=== PATIENT | female | born 1960 | race Caucasian/White ===

== ENCOUNTER 2017-07-24 08:36 | Inpatient (IN) ==
[2017-07-24] MEDS ORDERED: cefOXitin 2,000 MG in Water for inj. (sterile) 20 ML 20 ML IVP ONE (08:59)
[2017-07-24] MEDS ORDERED: Ringers Solution, Lactated 1,000 ML IVC SCH (09:00)
[2017-07-24] MEDS ORDERED: Albuterol 2.5 MG/3 ML NEBULIZER IH ONE ×2 (09:00→11:23)
--- NOTE | 2017-07-24 09:02 | Anesthesia Evaluation PreOp ---
Date of Encounter: 07/24/17 Time of Encounter: 09:00 - Past History Planned Operation: Robotic Sigmoid Colon Resection Cardiac History: Other (MVP) Pulmonary History: Smoker, Pack/yr (1 ppd x 50 Years), COPD WARP HAND History: Denies Any Significant HX Other Medical History: Renal (Stones), GERD (Hiatal Hernia) Anesthesia History: No Prior Anesthetic Complications, Past Anesthesia (Left foot Reattached, Reconstructive Ovarian Sx, R. wrist cyst) : No Alcohol Use: none, occasionally Drug use: none Medications and Allergies Ibuprofen [Advil] 400 mg PO BID PRN 07/24/17 [History] Lactobacillus Acidophilus [Acidophilus] 1 each PO 1200 07/24/17 [History] Naproxen [Naprosyn] 250 mg PO BID PRN 07/24/17 [History] Psyllium [Metamucil Fiber Singles Packet] 1 packet PO 1200 07/24/17 [History] 3 Allergy/AdvReac Type Severity Reaction Status Date / Time doxycycline [From Vibramycin] Allergy Gastrointestinal Verified 07/24/17 09:23 Upset shellfish derived Allergy Vomiting Verified 07/24/17 09:23 - Meds/Allergy Pre-op Review Medications Reviewed: Yes Allergies Reviewed: Yes Beta Blockers on Current Med List: No Anesthesia Results - Labs Laboratory Tests 04/16/17 07/17/17 07/17/17 11:10 10:28 10:28 WBC 9.8 Hgb 14.7 Hct 45.3 H Plt Count 355 Sodium 143 Potassium 3.9 Chloride 105 Carbon Dioxide 26 BUN 9 Creatinine 0.58 L - Imaging EKG: report reviewed (SR R. Ventricular conduction delay, Poss old Ant. MO) Anesthesia Exam O2 Sat Height 1.7 m Height 1.7 m Weight 60.328 kg Weight 60.328 kg O2 Sat by Pulse Oximetry 98 Vital Signs Temp Pulse Resp BP Pulse Ox 97.9 F 78 18 140/79 98 07/24/17 09:07 07/24/17 09:07 07/24/17 09:07 07/24/17 09:07 07/24/17 09:07 NPO (# of Hours): > 8 hrs Pain Scale: 0 Pain Scale Used: Numeric (1 - 10) - HEENT Pupil (Motor): Pupils equal, EOMI Mallampati: I Teeth: Normal Oral Opening: Greater than 3 - WARP HAND LOC: Oriented WARP HAND Motor: Normal RUE, Normal LUE, Normal RLE, Normal LLE, Normal Face WARP HAND Sensory: Normal: RUE, LUE, RLE, LLE, Face - Cardiac Rhythm: Regular Murmur: None JVD: No Carotid Bruit: No - Pulmonary Breath Sounds: bilateral Clear Respiratory Effort: Symmetrical Anesthesia Assess/Plan ASA Score: 3 Modified Naima Scale for Level of Consciousness: Cooperative, oriented, and tranquil Anesthetic Plan: General Autologous Blood: Yes Monitoring Plan: Standard Monitors Recovery Plan: PACU
--- NOTE | 2017-07-24 09:31 | History & Physical Report ---
Date of Encounter: 07/24/17 Time of Encounter: 09:30 24 Hour HP Update - Instructions Instructions: If the History and Physical is less than 30 days old and was completed prior to A.M. admission and or procedure and has NOT been updated on calendar day of procedure please complete this update prior to performing procedure. - Update Patient reports changes in Medical Condition: No Changes in examination, assessment, or condition: No Changes in Medication: No Preop tests/diagnostics Reviewed: Yes Surgery Remains Indicated: Yes Consent for Planned Operative Procedure(s) Verified: Yes - Pre-Operative Checklist Preoperative Checklist Indicated: Yes Prophylactic Antibiotic Ordered: Yes Home Medications Include Beta Roberth: No
[2017-07-24] MEDS ORDERED: *HR* Propofol 200 MG/20 ML VIAL IVP ONE (10:00)
[2017-07-24] MEDS ORDERED: *HR* FentaNYL (PF) 100 MCG/2 ML VIAL ONE ×3 (10:01→12:02)
[2017-07-24] MEDS ORDERED: Ondansetron 4 MG/2 ML VIAL ONE (10:01)
[2017-07-24] MEDS ORDERED: *HR* Midazolam HCl 2 MG/2 ML VIAL ONE (10:01)
[2017-07-24] MEDS ORDERED: *HR* Rocuronium Bromide 50 MG/5 ML VIAL ONE ×2 (10:01→12:34)
[2017-07-24] MEDS ORDERED: Lidocaine -MPF 2% 2 ML VIAL ONE (10:01)
[2017-07-24] MEDS ORDERED: Dexamethasone 4 MG/ML VIAL ONE (10:01)
[2017-07-24] MEDS ORDERED: *HR* PHENYLEPHRINE 1,000 MCG/10 ML SYRINGE IVP ONE (10:55)
[2017-07-24] MEDS ORDERED: EPHEDrine 50 MG/ML VIAL ONE (10:56)
[2017-07-24] MEDS ORDERED: MORPHINE SUL Oral CONC 10 MG/0.5 ML ORAL.SYG SL PRN (11:23)
[2017-07-24] MEDS ORDERED: *HR* OxyCODONE Immed Rel 5 MG TABLET PO PRN (11:23)
[2017-07-24] MEDS ORDERED: Dexamethasone 4 MG/ML VIAL IVP ONE (11:23)
[2017-07-24] MEDS ORDERED: *HR* HYDROmorphone 2 MG TABLET PO PRN (11:23)
[2017-07-24] MEDS ORDERED: *HR* Promethazine 25 MG/ML VIAL IVP PRN (11:23)
[2017-07-24] MEDS ORDERED: *HR* Labetalol 100 MG/20 ML MDV ONE (11:35)
[2017-07-24] MEDS ORDERED: Neostigmine Methylsulfate 3 MG/3 ML SYRINGE ONE (12:40)
[2017-07-24] MEDS ORDERED: Naloxone 0.4 MG/ML INJ IVP PRN (12:58)
[2017-07-24] MEDS ORDERED: Ondansetron 4 MG/2 ML VIAL IVP PRN (12:58)
[2017-07-24] MEDS ORDERED: OXYCODONE Oral CONC 10 MG/0.5 ML ORAL.SYG SL PRN (12:58)
--- NOTE | 2017-07-24 12:58 | Operative Note ---
Date of procedure: 07/24/17 Pre-op diagnosis: Sigmoid diverticulitis Post-op diagnosis: same Procedure: Robotic Sigmoid resection with 33 mm EEA stapling Anesthesia: ALBINO Surgeon: Kali Haile Was there an licensed physical therapy assistant present: Yes Unemployment Benefits Claims Taker: Aisha Rg Estimated blood loss (cc): 5 Specimen: Sigmoid Colon Condition: stable Disposition: same day Procedure in Detail: After informed consent, patient taken operating room placed supine position. After adequate sedation anesthesia patient was placed in a lithotomy position. After proper timeout a 12 mm cannula site was placed right superior to the umbilicus. Pneumoperitoneum was greater. A 13 mm cannula was placed in right lower quadrant. 5 mm camera was placed in the right upper quadrant. An 8 mm cannula was placed in subxiphoid region followed by another 8 mm in the left lower quadrant. Patient was placed in a headdown position. The robot was docked over the patient's left hip. Small bowel swept out of the pelvis. Rectosigmoid colon was then grasped and retracted cephalad. The peritoneum was then scored level of the sacral promontory. The left ureter was identified and kept on harm's way. The inferior mesenteric artery was then taken with a vessel sealer. The lateral rectosigmoid stalks were taken down the vessel sealer. The dissection was carried out down to approximate 4 cm above the pelvic floor. Rectosigmoid colon was dissected free from the retro-pubic tubercle region. Once it was freed a 45 mm robotic Endo staplers fired across the rectum. Once it was retracted and area was demarcated on the sigmoid colon for transection. Indocyanine green was infused and we had excellent perfusion. The splenic flexure was also taken down and mobilized. This mobilization allowed for less tension on the anastomosis. A counterincision was made in the suprapubic region. Dissection carried down the anterior rectus sheath. The rectus muscles were then divided in the midline with Cristina clamp. Once they were split the rectosigmoid colon was delivered. Alexandra bowel clamps are used to place across the colon proximal and distal and transected. Allis clamps are placed on the bowel and then a pursestring suture device placed on the colon. 3-0 Prolene suture was passed. A pursestring sutures and created and a 33 mm EEA anvil was placed. Suture was tied and secured. Colon was then placed back in the pelvis. The stapler was passed through the anal canal and to the rectal stump and then the spear was placed through the staple line. The anvil was then connected secured and fired. There were 2 excellent donuts. There were several 2-0 silk sutures used to buttress the staple line. A leak test revealed no leak. At that point the procedure was terminated. All incisions are closed with 0 Vicryl suture and 4-0 Vicryl suture. Marcaine was inserted in the Pfannenstiel incision. He tolerated the procedure well.
--- NOTE | 2017-07-24 13:39 | Anesthesia Evaluation Post Op ---
Date of Encounter: 07/24/17 Time of Encounter: 13:38 - Vital Signs Vital Signs: Last Vital Signs Temp 97.0 F L 07/24/17 13:29 Pulse 84 07/24/17 13:29 Resp 16 07/24/17 13:29 BP 143/85 07/24/17 13:29 Pulse Ox 99 07/24/17 13:29 - Lungs Lungs: Clear Ascult./Percussion - Airway Airway: Non-obstructed - Cardiovascular Regular Rate - Mental Status Mental Status: Alert & Oriented, Answers Appropriately - Pain Pain Scale: 3 - Nausea Vomiting Nausea Vomiting: Not Present - Hydration Hydration: NPO, Conner catheter - Discharge PostOp Status: Transfer Patient to floor
[2017-07-24] MEDS: 0.9 % Sodium Chloride 1,000 ML IVC SCH (15:21)
--- NOTE | 2017-07-24 16:47 | Electrocardiograph Report ---
[place] [employer] [facility] Test Date: 2017-07-24 Pat Name: Claire Plummer Department: 106 Room: 3B32 Gender: F Pulmonary Specialist: MITCH : 1960 Requested By: Moo Nguyen Order Number: [id number] Reading MD: Rai Urbina Measurements Intervals [place] Rate: 69 P: 67 WI: 170 QRS: 9 QRSD: 80 T: 52 QT: 391 QTc: 410 Interpretive Statements SINUS RHYTHM Electronically Signed On 07-24-2017 16:45:34 EDT by Rai Urbina
[2017-07-24] MEDS: Nicotine 14 MG PATCH.TD24 TD SCH (17:13)
[2017-07-25] MEDS: 0.9 % Sodium Chloride 1,000 ML IVC SCH (02:39)
[2017-07-25 06:21] LABS: Basophils % 0.2 %; Hematocrit 40.8 % (35.3-44.9); Hemoglobin 13.3 g/dL (11.5-15.4); Immature Granulocytes % 0.4 % (0-4); Lymphocytes # 1.2 K/mcL (0.6-4.6); Lymphocytes % 9.6 %; Mean Corpuscular HGB Conc 32.6 g/dL (31.6-35.5); Mean Corpuscular Hemoglobin 29.4 pg (28.0-33.3); Mean Corpuscular Volume 90.1 fL (83.0-100.0); Mean Platelet Volume 10.2 fL (9.4-12.4); Monocytes # 0.7 K/mcL (0.0-1.3); Monocytes % 5.1 %; Neutrophils # 10.8 K/mcL (1.6-8.9); Platelet Count 289 K/mcL (140-400); Red Blood Count 4.53 M/mcL (3.82-4.97); Red Cell Distribution Width 14.6 % (11.5-14.5); Segmented Neutrophils % 84.7 %
[2017-07-25 06:44] LABS: BUN/Creatinine Ratio 10 (6-26); Blood Urea Nitrogen 5 mg/dL (6-20); Calcium 8.9 mg/dL (8.6-10.3); Carbon Dioxide 25 mEq/L (23-29); Chloride 108 mEq/L (98-107); Glucose 145 mg/dL (70-105); Osmolality,Calculated 290 (280-300); Potassium 3.8 mEq/L (3.5-5.1); Sodium 140 mEq/L (136-145); eGFR For African Americans > 60 (> 60); eGFR For Non-African Americans > 60 (> 60)
[2017-07-25] MEDS: Nicotine 14 MG PATCH.TD24 TD SCH (08:12)
--- NOTE | 2017-07-25 11:13 | General Surgery Progress Note ---
Date of Encounter: 07/25/17 Time of Encounter: 11:12 - Assessment and Plan (1) Diverticulitis Current Visit: Yes Status: Acute Date of procedure: 07/24/17 Pre-op diagnosis: Sigmoid diverticulitis Post-op diagnosis: same Procedure: Robotic Sigmoid resection with 33 mm EEA stapling POD#1 as above her abdominal exam is as expected. She states she has had a liquid brown bowel movement and is passing flatus. She denies uncontrolled abdominal discomfort or distention. Plan: stop IV fluids advanced to full liquid diet start Flomax DC Leblanc ambulate as tolerated supportive care and discomfort management repeat a.m. labs incentive spirometry Q1 hour while awake EP CDs while in bed (2) Cystocele Current Visit: Yes Status: Chronic Report cystocele managed by Dr. Denise for which she uses a pessary. She reports historically having difficulty initiating a urine stream. We will begin Flomax in an effort to prevent acute urinary retention S/P surgical intervention and DC of Leblanc catheter. Qualifiers: Cystocele location: midline Qualified Code(s): N81.11 - Cystocele, midline Subjective Patient reports: no new complaints, feels better, still having pain, pain is less, tolerating liquids well, voiding w/o difficulty (per leblanc), flatus, bowel movement (brown liquid) Narrative: Claire states she is "tired of liquids I want something more." She denies nausea, vomiting, abdominal distention, or uncontrolled abdominal discomfort. She request that her Leblanc DC. Objective Vital Signs - Last 8 Hours Temp Pulse Resp BP Pulse Ox 07/25/17 10:02 98.2 F 76 15 151/78 96 07/25/17 06:45 98.0 F 80 15 135/73 95 07/25/17 04:51 98.6 F 85 16 126/73 96 Intake and Output 07/24/17 07/25/17 07/25/17 23:59 07:59 15:59 Intake Total 240 / 240 1800 / 1800 550 / 550 Output Total 500 / 500 2000 / 1999 1000 / 1000 Balance -260 / -260 -200 / -200 -450 / -450 Intake: IV Fluids 1000 / 1000 0.9 % Sodium Chloride 1,000 ML 1000 / 1000 @ 90 mls/hr IVC .[id number] [facility] Rx# :[id number] Oral 240 / 240 800 / 800 550 / 550 Output: Catheter 500 / 500 2000 / 1999 1000 / 1000 Other: Meal Breakfast Percent of Meal Consumed 0% Stool Size Smear Stool Consistency liquid Stool Color Brown # Bowel Movements 1 VITAL SIGNS: Reviewed. See [facility] GENERAL: In no apparent distress. HEENT: Normocephalic, atraumatic, pupils are equal and reactive, extraocular motions intact, oropharynx is pink and moist, there is no neck adenopathy or JVD noted. CHEST/RESPIRATORY: The thorax is free from signs of trauma. Lung sounds: clear to auscultation, normal respiratory effort CARDIAC: Regular rate and rhythm. Normal S1 and S2, without murmurs, gallops, or rubs. VASCULAR: No Edema. 2+ peripheral pulses. ABDOMEN: soft, expected postoperative tenderness, active bowel sounds INCISION: Surgical incision is clean, dry, and intact. There are no signs of cellulitis or infection noted. MUSCULOSKELETAL: Good range of motion of all major joints. Extremities without clubbing, cyanosis or edema. NEUROLOGIC EXAM: Alert and oriented x 3. Speech normal. Follows commands. PSYCHIATRIC: Mood normal. SKIN: No rash or lesions. - Labs 07/25/17 06:04 07/25/17 06:04 Diabetes panel 07/25/17 Range/Units 06:04 Sodium 140 (136-145) mEq/L Potassium 3.8 (3.5-5.1) mEq/L Chloride 108 H (98-107) mEq/L Carbon Dioxide 25 (23-29) mEq/L BUN 5 L (6-20) mg/dL Creatinine 0.50 L (0.60-1.20) mg/dL Glucose 145 H (70-105) mg/dL Calcium 8.9 (8.6-10.3) mg/dL Calcium panel 07/25/17 Range/Units 06:04 Calcium 8.9 (8.6-10.3) mg/dL Pituitary panel 07/25/17 Range/Units 06:04 Sodium 140 (136-145) mEq/L Potassium 3.8 (3.5-5.1) mEq/L Chloride 108 H (98-107) mEq/L Carbon Dioxide 25 (23-29) mEq/L BUN 5 L (6-20) mg/dL Creatinine 0.50 L (0.60-1.20) mg/dL Glucose 145 H (70-105) mg/dL Calcium 8.9 (8.6-10.3) mg/dL Adrenal panel 07/25/17 Range/Units 06:04 Sodium 140 (136-145) mEq/L Potassium 3.8 (3.5-5.1) mEq/L Chloride 108 H (98-107) mEq/L Carbon Dioxide 25 (23-29) mEq/L BUN 5 L (6-20) mg/dL Creatinine 0.50 L (0.60-1.20) mg/dL Glucose 145 H (70-105) mg/dL Calcium 8.9 (8.6-10.3) mg/dL - VTE Documentation of Mechanical Device: Intermittent pneumatic compression device Consult Discharge Plan - Plan Referrals: Ny Mariee CNP [Advanced Practice Nurse] - 08/06/17 1:45 pm
[2017-07-25] MEDS ORDERED: *HR* HYDROcodone/Acet 5/325 mg TABLET PO PRN (11:25)
[2017-07-25] MEDS ORDERED: OXYCODONE Oral CONC 10 MG/0.5 ML ORAL.SYG SL PRN (11:43)
[2017-07-25] MEDS ORDERED: Ketorolac 15 MG/ML VIAL IVP SCH (12:00)
--- NOTE | 2017-07-25 16:01 | Discharge Summary ---
Orders not resulted at time of discharge: Pending orders 07/24/17 12:41 Surgical Pathology [PTH] Routine 07/26/17 04:00 BMP [Basic Metabolic Panel] AM 0400 Complete Blood Count [HEME] AM 0400 Date of Encounter: 07/26/17 Time of Encounter: 16:01 - Discharge Diagnosis (1) Diverticulitis Priority: Primary Status: Acute (2) Cystocele Priority: Secondary Status: Chronic Qualifiers: Cystocele location: midline Qualified Code(s): N81.11 - Cystocele, midline General Surgery Exam Initial Vital Signs Temp Pulse Resp BP Pulse Ox 97.9 F 78 18 140/79 98 07/24/17 09:07 07/24/17 09:07 07/24/17 09:07 07/24/17 09:07 07/24/17 09:07 Unchanged from previous - Hospital Course Hospital course: Ms. Plummer is a 56 year old female who presented on 07/24/2017 for an elective sigmoid colon resection (robotic) with 33 mm EEA stapling for history of diverticulitis. Her postoperative course has been unremarkable. She did report a history of cystocele and she was therefore treated with Flomax prior to removal of Conner catheter. She is ambulating avoiding without difficulty, tolerating a full liquid diet without nausea or vomiting, vital signs are stable , afebrile, and abdominal discomfort is well-controlled. We will begin discharge planning to home with a follow-up in the office on 08/06/2017. She will likely remain in the hospital until 07/26/2017 d/t transportation. Time spent discussing smoking cessation with patient: 3 to 10 minutes - Time Spent with Patient Total time spent providing and/or coordinating discharge services: - Discharge Medications Prescriptions: HYDROcodone/Acet 5/325 mg [Reno 5-325 mg] 1 tab PO Q4HR PRN 7 Days #28 tablet PRN Reason: Moderate Pain Ibuprofen 800 mg PO Q8H #30 tablet Nicotine Patch [Nicoderm] 14 mg TD DAILY #30 patch.td24 Tamsulosin [Flomax] 0.4 mg PO DAILY #30 capsule Home Medications: Ibuprofen [Advil] 400 mg PO BID PRN 07/24/17 [History] HYDROcodone/Acet 5/325 mg [Reno 5-325 mg] 1 tab PO Q4HR PRN 7 Days #28 tablet 07/25/17 [Rx] Ibuprofen 800 mg PO Q8H #30 tablet 07/25/17 [Rx] Nicotine Patch [Nicoderm] 14 mg TD DAILY #30 patch.td24 07/25/17 [Rx] Tamsulosin [Flomax] 0.4 mg PO DAILY #30 capsule 07/25/17 [Rx] Allergies/Adverse Reactions: 3 Allergy/AdvReac Type Severity Reaction Status Date / Time doxycycline [From Vibramycin] Allergy Gastrointestinal Verified 07/24/17 09:23 Upset shellfish derived Allergy Vomiting Verified 07/24/17 09:23 Date of admission: 07/24/17 13:49 Primary care physician: Homero Cochran CNP Discharging clinician: Kali Mariee) Anticipated date of discharge: 07/25/17 Labs on day of discharge: Labs from last 24 hours 07/25/17 07/25/17 06:04 06:04 WBC 12.7 H RBC 4.53 Hgb 13.3 Hct 40.8 MCV 90.1 MCH 29.4 MCHC 32.6 RDW 14.6 H Plt Count 289 MPV 10.2 Immature Gran % 0.4 Seg Neutrophils % 84.7 Lymphocytes % 9.6 Monocytes % 5.1 Eosinophils % 0.0 Basophils % 0.2 Neutrophils # 10.8 H Lymphocytes # 1.2 Monocytes # 0.7 Eosinophils # 0.0 Basophils # 0.0 Sodium 140 Potassium 3.8 Chloride 108 H Carbon Dioxide 25 BUN 5 L Creatinine 0.50 L Est GFR ( Amer) > 60 Est GFR (Non-Af Amer) > 60 BUN/Creatinine Ratio 10 Glucose 145 H Calculated Osmolality 290 Calcium 8.9 - Patient Status Disposition: Home, Self-Care Condition: Good Functional capacity at discharge: independent ambulation Overall status at discharge: patient is progressing back to baseline - Discharge Instructions Instructions: Colectomy (DC) Follow Up With: Ny Mariee CNP [Advanced Practice Nurse] - 08/06/17 1:45 pm Additional Instructions: General Surgical Discharge Instructions 1. No pushing, pulling, or lifting greater than 15 lbs for 2-4 weeks (depending upon procedure). 2. You may shower beginning today, but no tub baths, soaking, or swimming for 2 weeks. 3. You may resume driving when you are off narcotics and are safe to react in a car. 4. Take ibuprofen every 8 hours for discomfort. If this does not relieve discomfort, you may take the as needed Percocet. Take narcotics as directed. Do not take more narcotics then directed and do not share your narcotics with any other person. Do not drink alcohol while on narcotics. 5. Take stool softeners (Colace) or a water based laxative (Miralax) while taking narcotics. You may hold for loose stools. 6. Report any fevers greater than 100.5F, increase abdominal discomfort, drainage that looks like pus, increased redness or pain at the surgical site, or any vomiting. 7. Report any pain in the calves, shortness of breath, or rapid heartbeat. 8. Follow-up in the office as directed. 9. If you were prescribed antibiotics, do not stop them without talking to your provider. - Diet and Activity Activity: increase activity as tolerated Diet: other (Low fiber, soft diet)
[2017-07-25] MEDS ORDERED: Ibuprofen 800 MG TABLET PO PRN (16:05)
[2017-07-26 05:11] LABS: Hematocrit 38.8 % (35.3-44.9); Hemoglobin 12.6 g/dL (11.5-15.4); Mean Corpuscular HGB Conc 32.5 g/dL (31.6-35.5); Mean Corpuscular Hemoglobin 29.6 pg (28.0-33.3); Mean Corpuscular Volume 91.3 fL (83.0-100.0); Mean Platelet Volume 10.6 fL (9.4-12.4); Platelet Count 268 K/mcL (140-400); Red Blood Count 4.25 M/mcL (3.82-4.97); Red Cell Distribution Width 15.2 % (11.5-14.5); Segmented Neutrophils % 69.9 %
[2017-07-26 05:12] LABS: Basophils % 0.2 %; Eosinophils # 0.1 K/mcL (0.0-0.6); Eosinophils % 0.6 %; Immature Granulocytes % 0.2 % (0-4); Lymphocytes # 2.6 K/mcL (0.6-4.6); Lymphocytes % 20.4 %; Monocytes # 1.1 K/mcL (0.0-1.3); Monocytes % 8.7 %; Neutrophils # 8.8 K/mcL (1.6-8.9)
[2017-07-26 05:31] LABS: BUN/Creatinine Ratio 19 (6-26); Blood Urea Nitrogen 9 mg/dL (6-20); Calcium 8.7 mg/dL (8.6-10.3); Carbon Dioxide 27 mEq/L (23-29); Chloride 109 mEq/L (98-107); Glucose 98 mg/dL (70-105); Osmolality,Calculated 291 (280-300); Potassium 3.8 mEq/L (3.5-5.1); Sodium 141 mEq/L (136-145); eGFR For African Americans > 60 (> 60); eGFR For Non-African Americans > 60 (> 60)
[2017-07-26 06:43] VITALS: BP 124/77
[2017-07-26] MEDS: Nicotine 14 MG PATCH.TD24 TD SCH (08:53)
== END 2017-07-26 10:26 | disposition home or self-care (01) | DRG 231 ==
LOC: SAMDAY 08:36 → 3BNU 13:49 → 3ANU 21:50
PROVIDERS: ADMIT Surgery; ATTEND Surgery

== ENCOUNTER 2018-04-14 16:35 | Inpatient (IN) ==
[2018-04-14] MEDS ORDERED: Ondansetron 4 MG/2 ML VIAL IVP PRN (17:16)
[2018-04-14] MEDS ORDERED: Isovue-370 500 ML BOTTLE IVP ONE (17:16)
[2018-04-14] MEDS ORDERED: Acetaminophen IV 1,000 MG/100 ML INFUS..BTL IVPB ONE (17:16)
[2018-04-14] MEDS ORDERED: OXYCODONE Oral CONC 10 MG/0.5 ML ORAL.SYG SL PRN ×2 (17:16)
--- NOTE | 2018-04-14 17:27 | General Surg History&Physical ---
Date of Encounter: 04/14/18 Time of Encounter: 17:24 Assessment and Plan (1) Abdominal pain Current Visit: Yes Status: Acute The assessment and plan as outlined above was discussed with the patient and/or family members who expressed understanding and agreement. All questions were answered. Biloma vs hepatitis vs pathological process s/p robotic cholecystectomy 04/10/2018. She called the office today reporting that she was having ul colored to white stools and diarrhea. She reports that the stool was flushed colored prior to surgery and she was unsure of the cause. She reports her right upper quadrant abdominal discomfort has worsened progr essively over the last couple days. She reports a fever but has not checked her temperature at home. She was noted to have a fever of 101.2 in the office. We will admit the patient for supportive care and work up. CBC, CMP, bilirubin (total and fractionated), lipase, amylase, coags, hepatitis screen, c-diff, and Ua pending CT abd pelvis with IV and oral contrast ordered. Call results to Dr. Haile. Qualifiers: Abdominal location: right upper quadrant Qualified Code(s): R10.11 - Right upper quadrant pain (2) Stool lu color Current Visit: Yes Status: Acute The assessment and plan as outlined above was discussed with the patient and/or family members who expressed understanding and agreement. All questions were answered. diarrhea and stool that is flesh to white colored. labs and imaging as above c-diff (3) Low back pain Current Visit: Yes Status: Acute The assessment and plan as outlined above was discussed with the patient and/or family members who expressed understanding and agreement. All questions were answered. Will obtain ua to rule out UTI vs pyelonephritis Qualifiers: Chronicity: acute Back pain laterality: bilateral Sciatica presence: without sciatica Qualified Code(s): M54.5 - Low back pain History of Present Illness Chief complaint: RUQ pain and fever HPI: Ms. Plummer is a 57 year old female who presented to the office on 04/14/2018 with complaints of right upper quadrant pain, fever, flesh to white colored stool, diarrhea, and low back pain status post robotic cholecystectomy on 04/10/2017 for biliary colic. She reports that intermittently even prior to surgery she had been having flesh to white colored stool intermittently but it has worsened since surgery. She reports fever at home but has not checked or temperature. She also endorses bilateral low back pain and difficulty urinating. She denies burning or foul-smelling urine. She states multiple episodes of diarrhea for which she has not ate or drink anything today in order to "prevent an accident." She was noted to have a temperature of 101.2F per temp oral scan while in the office today. She was advised to be admitted for further work-up and treatment Past Med Surg Social Fam HX - Past Medical History Source: patient Medical history: COPD, GERD, kidney stones, other Additional medical history: mitral valve prolapse. SMOKER. CATARACTS. DIVERTICULITIS. HIATAL HERNIA. pneumonia Psychiatric history: no psych history - Past Surgical History Surgical History: colectomy, orthopedic, other, other Additional surgical history: R foot reattached. reconstructive ovarian surgery. cyst removed on R wrist. robotic sigmoid resection with 33 mm EEA stapling. robotic cholecystectomy - Social History Smoking Status: Current every day smoker Smokeless Tobacco Status: No Alcohol use: none, occasionally Drug use: none - Family History Mother Living Status: Hx Family Cancer: Yes ("cancer in spine") Hx Family GI Disorders: Yes (diverticulitis) Father Living Status: Hx Family Cardiac Disorders: Yes (7 [place]) Hx Family Neurologic Disorders: Yes (CVA) Medications and Allergies OxyCODONE/APAP 5/325 [Percocet 5/325 MG] 1 each PO Q6HR PRN 7 Days #14 tablet 04/10/18 [Rx] Allergy/AdvReac Type Severity Reaction Status Date / Time doxycycline [From Vibramycin] Allergy Gastrointestinal Verified 04/10/18 06:55 Upset shellfish derived Allergy Vomiting Verified 04/10/18 06:55 Review of Systems All systems PM: reviewed and no additional remarkable complaints except as stated All systems PM: The remainder of the systems were reviewed and are negative General Surgery Exam VITAL SIGNS: Reviewed. See [facility] GENERAL: In no moderate distress stating abdominal pain and fever. HEENT: Normocephalic, atraumatic, pupils are equal and reactive, extraocular motions intact, oropharynx is pink and dry, there is no neck adenopathy or JVD noted. CHEST/RESPIRATORY: The thorax is free from signs of trauma. Lung sounds: clear to auscultation, normal respiratory effort CARDIAC: tachycardic. Normal S1 and S2, without murmurs, gallops, or rubs. VASCULAR: No Edema. 2+ peripheral pulses. ABDOMEN: soft, right upper quadrant and mid abdominal tenderness with mild palpation, negative po sign, + bowel sounds MUSCULOSKELETAL: Good range of motion of all major joints. Extremities without clubbing, cyanosis or edema. NEUROLOGIC EXAM: Alert and oriented x 3. Speech normal. Follows commands. PSYCHIATRIC: Mood normal. SKIN: No rash or lesions. Slightly jaundice, Results - Labs All other labs normal.
[2018-04-14 18:11] LABS: Basophils # 0.1 K/mcL (0.0-0.2); Basophils % 0.4 %; Eosinophils # 0.1 K/mcL (0.0-0.6); Eosinophils % 0.6 %; Hematocrit 37.8 % (35.3-44.9); Hemoglobin 12.2 g/dL (11.5-15.4); Immature Granulocytes % 0.3 % (0-4); Lymphocytes # 1.7 K/mcL (0.6-4.6); Lymphocytes % 13.8 %; Mean Corpuscular HGB Conc 32.3 g/dL (31.6-35.5); Mean Corpuscular Hemoglobin 28.4 pg (28.0-33.3); Mean Corpuscular Volume 88.1 fL (83.0-100.0); Mean Platelet Volume 9.3 fL (9.4-12.4); Monocytes # 1.2 K/mcL (0.0-1.3); Monocytes % 9.7 %; Neutrophils # 9.3 K/mcL (1.6-8.9); Platelet Count 543 K/mcL (140-400); Red Blood Count 4.29 M/mcL (3.82-4.97); Red Cell Distribution Width 13.1 % (11.5-14.5); Segmented Neutrophils % 75.2 %
[2018-04-14] MEDS: 0.9 % Sodium Chloride 1,000 ML IVC SCH (18:15)
[2018-04-14] MEDS: Pantoprazole 40 MG VIAL IVP SCH (18:17)
[2018-04-14 18:18] LABS: INR 1.3; Prothrombin Time 14.6 Seconds (9.4-12.1)
[2018-04-14] MEDS: *HR* Heparin 5,000 UNIT/ML VIAL SQ SCH (18:18)
[2018-04-14] MEDS: Piperacillin/Tazobactam 3.375 GM in 0.9 % Sodium Chloride Mini Bag 100 ML IVPB SCH (18:20)
[2018-04-14 18:21] LABS: Activated Partial Thrombo Time 30.4 Seconds (26.0-36.0)
[2018-04-14 18:32] LABS: Alanine Aminotransferase 19 Units/L (7-52); Albumin 3.2 g/dL (3.5-5.7); Alkaline Phosphatase 65 Units/L (34-104); Amylase 17 Units/L (29-103); Aspartate Amino Transferase 13 Units/L (13-39); BUN/Creatinine Ratio 27 (6-26); Bilirubin,Direct 0.1 mg/dL (0.0-0.2); Bilirubin,Indirect 0.1 mg/dL (0.0-1.2); Bilirubin,Total 0.2 mg/dL (0.3-1.0); Blood Urea Nitrogen 12 mg/dL (6-20); Calcium 8.5 mg/dL (8.6-10.3); Carbon Dioxide 26 mEq/L (23-29); Chloride 101 mEq/L (98-107); Globulin 3.2 g/dL (2.4-3.5); Glucose 106 mg/dL (70-105); Osmolality,Calculated 286 (280-300); Phosphorous 2.7 mg/dL (2.7-4.5); Potassium 3.8 mEq/L (3.5-5.1); Sodium 138 mEq/L (136-145); Total Protein 6.4 g/dL (6.4-8.9); eGFR For Non-African Americans > 60 (> 60)
[2018-04-14 19:11] LABS: Hepatitis B Surface Antigen Nonreactive (Nonreactive)
[2018-04-14 19:39] LABS: Hepatitis B Core IgM Nonreactive (Nonreactive)
[2018-04-14 19:42] LABS: Hepatitis A Antibody IgM Nonreactive (Nonreactive); Hepatitis C Virus Antibody Nonreactive (Nonreactive)
[2018-04-14] MEDS: Ipratropium/Albuterol Neb 3 ML IH SCH (20:07)
[2018-04-15] MEDS: Ipratropium/Albuterol Neb 3 ML IH SCH ×6 (00:01→20:39)
[2018-04-15] MEDS: Piperacillin/Tazobactam 3.375 GM in 0.9 % Sodium Chloride Mini Bag 100 ML IVPB SCH (02:32)
[2018-04-15] MEDS: 0.9 % Sodium Chloride 1,000 ML IVC SCH ×2 (04:33→13:55)
[2018-04-15] MEDS: *HR* Heparin 5,000 UNIT/ML VIAL SQ SCH ×2 (06:18→17:26)
[2018-04-15] MEDS: Pantoprazole 40 MG VIAL IVP SCH (07:49)
[2018-04-15] MEDS ORDERED: Acetaminophen IV 1,000 MG/100 ML INFUS..BTL IVPB SCH (07:51)
[2018-04-15 07:53] LABS: Bacteria,Urine None Seen per hpf (None-Few); Bilirubin,Urine Negative (Negative); Blood,Urine Negative (Negative); Clarity,Urine Clear (Clear); Color,Urine Yellow (Yellow); Glucose,Urine (UA) Normal (Normal); Hyaline Casts,Urine None Seen per lpf (None-Few); Ketones,Urine Negative (Negative); Leukocyte Esterase,Urine Trace (Negative); Nitrite,Urine Negative (Negative); PH,Urine 5.5 pH Units (5.0-8.0); Protein,Urine Negative (Neg-Trace); RBC,Urine 0-3 per hpf (0-3); Specific Gravity,Urine 1.019 (1.010-1.025); Squamous Epithelial Cell,Urine Many per lpf (None-Few); Urobilinogen,Urine Normal (Normal)
--- NOTE | 2018-04-15 08:29 | General Surgery Progress Note ---
Addendum entered and electronically signed by Ny Mariee CNP 04/15/18 09:12: hep gtt and labs associated d/c'd. Addendum entered and electronically signed by Ny Mariee CNP 04/15/18 08:50: consideration for ischemic colitis. Adding ASA and hep gtt at this time Original Note: Date of Encounter: 04/15/18 Time of Encounter: 08:29 - Assessment and Plan (1) Segmental colitis Current Visit: Yes Status: Acute Segmental colitis of the sigmoid colon. History of diverticulosis and d iverticulitis. History of robotic sigmoid resection with 33 mm EEA stapling in July 2017 CT 04/14/2018 noted increased stool in contrast in the right colon, rectosigmoid anastomotic sutures are noted. There is circumferential thickening of the sigmoid colon, no mention of abscess. Pt remains with fever (Tmax 102.2) and involuntary guarding although she states she feels somewhat better today. She is tolerating clear liquids. Plan: we will change her Zosyn to IV Cipro and Flagyl add scheduled Ofirmev for fever and pain Q6 hours Add alternating Toradol Q6H for 2 days PRN oxycodone for breakthrough pain continue G.I. and DVT prophylaxis ambulate as tolerated continue hospital care for IV antibiotics and observation Qualifiers: Digestive disease complication type: without complication Qualified Code(s): K50.10 - Crohn's disease of large intestine without complications (2) Abdominal pain Current Visit: Yes Status: Acute CT of the abdomen and pelvis with IV and oral contrast on 04/14/2017 noted a fat containing umbilical hernia, subcutaneous right lower quadrant gas consistent with recent cholecystectomy, increase stool in contrast in the colon. Rectosi gmoid anastomotic sutures are noted. Circumferential thickening of the sigmoid colon. No free fluid no abscess. Stomach appears normal see a/p above Qualifiers: Abdominal location: right upper quadrant Qualified Code(s): R10.11 - Right upper quadrant pain (3) Stool lu color Current Visit: Yes Status: Acute (4) Low back pain Current Visit: Yes Status: Acute Improved Qualifiers: Chronicity: acute Back pain laterality: bilateral Sciatica presence: without sciatica Qualified Code(s): M54.5 - Low back pain (5) Smoking history Current Visit: Yes Status: Acute Smoking cessation encouraged scheduled duonebs (6) Cystocele Current Visit: No Status: Chronic Pessary in place Management per Dr. Denise Qualifiers: Cystocele location: midline Qualified Code(s): N81.11 - Cystocele, midline Subjective Patient reports: still having pain, voiding w/o difficulty, flatus, bowel movement, diarrhea, nausea, fever Objective Vital Signs - Last 8 Hours Temp Pulse Resp BP Pulse Ox 04/15/18 08:16 96 04/15/18 07:13 102.2 F H 99 18 143/73 93 04/15/18 06:45 96 04/15/18 04:54 16 94 04/15/18 02:29 99.8 F H 88 18 129/75 93 Intake and Output 04/14/18 04/15/18 04/15/18 23:59 07:59 15:59 Intake Total 1360 / 1360 1290 / 1290 Output Total 500 / 500 Balance 1360 / 1360 790 / 790 Intake: IV Fluids 414 / 414 1290 / 1290 0.9 % Sodium Chloride 1,000 ML 214 / 214 1190 / 1190 @ 125 mls/hr IVC .Q8H [facility] Rx#: [id number] Ofirmev 1,000 mg/100 ml 1,000 100 / 100 mg In 100 ml @ 400 mls/hr IVPB ONCE ONE Rx#:[id number] Zosyn 3.375 GM In 0.9 % Sodium 100 / 100 100 / 100 Chloride (Mini-Bag +) 100 ML @ 25 mls/hr IVPB Q8H [facility] Rx#: [id number] Oral 946 / 946 Output: Urine 200 / 200 Urine/Stool Mix 300 / 300 Other: Stool Size Small Stool Consistency loose Stool Color Brown # Voids 100 # Bowel Movements 1 Weight 65.3 kg - General physical appearance no distress, moderate pain, other (shivering) - Eyes normal ocular movement - ENT normal nares, normal mucosa, atraumatic, normocephalic - Neck Neck exam: trachea midline - Respiratory normal expansion, normal respiratory effort, clear to auscultation - Cardiovascular Cardiovascular exam: Present: RRR - Abdomen Abdomen: Present: bowel sounds present, soft, tender, guarding - Incision Incision: Present: clean and dry, intact - Integumentary no rash - Neurologic normal coordination, normal sensation - Musculoskeletal normal posture - Psychiatric oriented to time, oriented to person, oriented to place, speech is normal, memory intact - Labs 04/14/18 17:57 04/14/18 17:57 Diabetes panel 04/14/18 Range/Units 17:57 Sodium 138 (136-145) mEq/L Potassium 3.8 (3.5-5.1) mEq/L Chloride 101 (98-107) mEq/L Carbon Dioxide 26 (23-29) mEq/L BUN 12 (6-20) mg/dL Creatinine 0.45 L (0.60-1.20) mg/dL Glucose 106 H (70-105) mg/dL Calcium 8.5 L (8.6-10.3) mg/dL AST 13 (13-39) Units/L ALT 19 (7-52) Units/L Alkaline Phosphatase 65 (34-104) Units/L Albumin 3.2 L (3.5-5.7) g/dL Calcium panel 04/14/18 Range/Units 17:57 Calcium 8.5 L (8.6-10.3) mg/dL Phosphorus 2.7 (2.7-4.5) mg/dL Albumin 3.2 L (3.5-5.7) g/dL Pituitary panel 04/14/18 Range/Units 17:57 Sodium 138 (136-145) mEq/L Potassium 3.8 (3.5-5.1) mEq/L Chloride 101 (98-107) mEq/L Carbon Dioxide 26 (23-29) mEq/L BUN 12 (6-20) mg/dL Creatinine 0.45 L (0.60-1.20) mg/dL Glucose 106 H (70-105) mg/dL Calcium 8.5 L (8.6-10.3) mg/dL Adrenal panel 04/14/18 Range/Units 17:57 Sodium 138 (136-145) mEq/L Potassium 3.8 (3.5-5.1) mEq/L Chloride 101 (98-107) mEq/L Carbon Dioxide 26 (23-29) mEq/L BUN 12 (6-20) mg/dL Creatinine 0.45 L (0.60-1.20) mg/dL Glucose 106 H (70-105) mg/dL Calcium 8.5 L (8.6-10.3) mg/dL Total Bilirubin 0.2 L (0.3-1.0) mg/dL AST 13 (13-39) Units/L ALT 19 (7-52) Units/L Alkaline Phosphatase 65 (34-104) Units/L Albumin 3.2 L (3.5-5.7) g/dL Consult Discharge Plan - Plan Referrals: Elise Moreno, BUILDING OFF[employer]IAL [Primary Care Provider] -
[2018-04-15 08:43] LABS: Basophils % 0.2 %; Eosinophils % 0.2 %; Hematocrit 34.8 % (35.3-44.9); Hemoglobin 11.1 g/dL (11.5-15.4); Immature Granulocytes % 0.5 % (0-4); Lymphocytes # 1.2 K/mcL (0.6-4.6); Lymphocytes % 11.3 %; Mean Corpuscular HGB Conc 31.9 g/dL (31.6-35.5); Mean Corpuscular Volume 87.9 fL (83.0-100.0); Mean Platelet Volume 9.1 fL (9.4-12.4); Monocytes # 1.3 K/mcL (0.0-1.3); Monocytes % 12.8 %; Neutrophils # 7.7 K/mcL (1.6-8.9); Platelet Count 477 K/mcL (140-400); Red Blood Count 3.96 M/mcL (3.82-4.97); Red Cell Distribution Width 13.2 % (11.5-14.5)
[2018-04-15] MEDS ORDERED: *HR* Heparin 5,000 UNIT/ML VIAL IVP PRN ×2 (08:51)
[2018-04-15] MEDS ORDERED: Heparin 25,000 UNIT/250 ML D5W 25,000 UNIT/250 ML IV.SOLN IVC SCH (09:00)
[2018-04-15 09:02] LABS: BUN/Creatinine Ratio 15 (6-26); Blood Urea Nitrogen 7 mg/dL (6-20); Calcium 7.6 mg/dL (8.6-10.3); Carbon Dioxide 28 mEq/L (23-29); Chloride 101 mEq/L (98-107); Glucose 106 mg/dL (70-105); Osmolality,Calculated 278 (280-300); Potassium 3.6 mEq/L (3.5-5.1); Sodium 135 mEq/L (136-145); eGFR For Non-African Americans > 60 (> 60)
[2018-04-15] MEDS: Aspirin 81 MG TAB.CHEW PO SCH (09:21)
[2018-04-15] MEDS: MetroNIDAZOLE 500 MG/100 ML 500 MG/100 ML BAG IVPB SCH ×2 (09:26→15:44)
[2018-04-15] MEDS: Ketorolac 15 MG/ML VIAL IVP SCH ×2 (11:53→17:26)
[2018-04-15] MEDS: Acetaminophen IV 1,000 MG/100 ML INFUS..BTL IVPB SCH ×2 (14:52→20:50)
[2018-04-15] MEDS: *HR* Promethazine 25 MG/ML VIAL IVP PRN (17:32)
[2018-04-16] MEDS: 0.9 % Sodium Chloride 1,000 ML IVC SCH ×4 (00:23→21:22)
[2018-04-16] MEDS: Ketorolac 15 MG/ML VIAL IVP SCH ×5 (00:24→23:52)
[2018-04-16] MEDS: MetroNIDAZOLE 500 MG/100 ML 500 MG/100 ML BAG IVPB SCH ×4 (00:24→23:52)
[2018-04-16] MEDS: *HR* LORazepam 2 MG/ML VIAL IVP PRN ×2 (00:32→21:22)
[2018-04-16] MEDS: Ipratropium/Albuterol Neb 3 ML IH SCH ×7 (00:35→23:42)
[2018-04-16] MEDS: Acetaminophen IV 1,000 MG/100 ML INFUS..BTL IVPB SCH ×4 (03:16→20:03)
[2018-04-16 05:13] LABS: Basophils % 0.4 %; Eosinophils # 0.1 K/mcL (0.0-0.6); Eosinophils % 0.8 %; Hematocrit 30.3 % (35.3-44.9); Hemoglobin 10.1 g/dL (11.5-15.4); Immature Granulocytes % 0.6 % (0-4); Lymphocytes # 1.3 K/mcL (0.6-4.6); Lymphocytes % 11.7 %; Mean Corpuscular HGB Conc 33.3 g/dL (31.6-35.5); Mean Corpuscular Volume 87.1 fL (83.0-100.0); Mean Platelet Volume 9.3 fL (9.4-12.4); Monocytes # 1.5 K/mcL (0.0-1.3); Monocytes % 13.5 %; Platelet Count 405 K/mcL (140-400); Red Blood Count 3.48 M/mcL (3.82-4.97); Red Cell Distribution Width 13.3 % (11.5-14.5)
[2018-04-16 05:21] LABS: BUN/Creatinine Ratio 15 (6-26); Blood Urea Nitrogen 6 mg/dL (6-20); Calcium 7.6 mg/dL (8.6-10.3); Carbon Dioxide 28 mEq/L (23-29); Chloride 104 mEq/L (98-107); Glucose 100 mg/dL (70-105); Osmolality,Calculated 278 (280-300); Potassium 3.2 mEq/L (3.5-5.1); Sodium 135 mEq/L (136-145); eGFR For Non-African Americans > 60 (> 60)
[2018-04-16] MEDS: *HR* Heparin 5,000 UNIT/ML VIAL SQ SCH ×2 (05:56→18:15)
[2018-04-16 06:22] LABS: Platelet Estimate Normal (Normal)
[2018-04-16 06:23] LABS: Reactive Lymphocytes Present (Not Present)
[2018-04-16] MEDS: Pantoprazole 40 MG VIAL IVP SCH (07:48)
[2018-04-16] MEDS: Aspirin 81 MG TAB.CHEW PO SCH (07:48)
--- NOTE | 2018-04-16 11:42 | General Surgery Progress Note ---
Date of Encounter: 04/16/18 Time of Encounter: 11:25 - Assessment and Plan (1) Segmental colitis Current Visit: Yes Status: Acute Segmental colitis of the sigmoid colon. History of diverticulosis and diverticulitis. History of robotic sigmoid resection with 33 mm EEA stapling in July 2017 CT 04/14/2018 noted increased stool in contrast in the right colon, rectosigmoid anastomotic sutures are noted. There is circumferential thickening of the s igmoid colon, no mention of abscess. Patient feels better today. States abdominal pain is gone. Tolerating regular diet. Making bowel movements. Diffusely tender to palpation on exam. No guarding. No fever for 24 hours. Plan: Continue IV Cipro and Flagyl scheduled Ofirmev for fever and pain Q6 hours Add alternating Toradol Q6H for 1 more day PRN oxycodone for breakthrough pain continue G.I. and DVT prophylaxis ambulate as tolerated continue hospital care for IV antibiotics and observation Qualifiers: Digestive disease complication type: without complication Qualified Code(s): K50.10 - Crohn's disease of large intestine without complications (2) Abdominal pain Current Visit: Yes Status: Acute CT of the abdomen and pelvis with IV and oral contrast on 04/14/2017 noted a fat containing umbilical hernia, subcutaneous right lower quadrant gas consistent wi th recent cholecystectomy, increase stool in contrast in the colon. Rectosigmoid anastomotic sutures are noted. Circumferential thickening of the sigmoid colon. No free fluid no abscess. Stomach appears normal Patient states abdominal pain is gone Qualifiers: Abdominal location: right upper quadrant Qualified Code(s): R10.11 - Right upper quadrant pain Subjective Narrative: Patient seen and examined. No acute events overnight. Patient is resting comfortably in bed with family at bedside. Patient states she feels better today. Tolerating regular diet. States abdominal pain is gone. Admits a little nausea. Denies emesis. States nausea feels a little better after eating breakfast. Patient states she had like 30 bowel movements yesterday. Liquid brown stool. States there was a little blood in stool this morning. Denies any other complaints. Objective Vital Signs - Last 8 Hours Temp Pulse Resp BP Pulse Ox 04/16/18 11:13 97.9 F 77 16 108/66 96 04/16/18 08:00 97.8 F 82 15 101/58 94 04/16/18 03:57 98.1 F 83 14 112/70 95 Intake and Output 04/15/18 04/16/18 04/16/18 23:59 07:59 15:59 Intake Total 876 / 876 1484 / 1484 320 / 320 Output Total 300 / 300 200 / 200 400 / 400 Balance 576 / 576 1284 / 1284 -80 / -80 Intake: IV Fluids 816 / 816 1484 / 1484 200 / 200 0.9 % Sodium Chloride 1,000 ML 416 / 416 1084 / 1084 @ 125 mls/hr IVC .Q8H [facility] Rx#: [id number] Ofirmev 1,000 mg/100 ml 1,000 100 / 100 100 / 100 100 / 100 mg In 100 ml @ 400 mls/hr IVPB Q6H [facility] Rx#:[id number] Cipro Premix 400 MG/200 ML 400 200 / 200 200 / 200 mg In 200 ml @ 200 mls/hr IVPB Q12HR [facility] Rx#:[id number] Flagyl Premix 500 MG/100 ML 500 100 / 100 100 / 100 100 / 100 mg In 100 ml @ 100 mls/hr IVPB Q8HR [facility] Rx#:[id number] Oral 60 / 60 0 / 0 120 / 120 Output: Urine 300 / 300 200 / 200 400 / 400 Other: Meal Dinner Breakfast Percent of Meal Consumed 5% 10% Stool Size Small Stool Consistency liquid Stool Color Brown # Voids 1 # Bowel Movements 1 Weight 66.3 kg Patient Weight 04/16/18 23:59 Weight 66.3 kg - Additional Exam VITAL SIGNS: Reviewed. See [facility] GENERAL: In no apparent distress. HEENT: Normocephalic, atraumatic, pupils are equal and reactive, extraocular mo tions intact, oral mucosa pink and moist. CHEST/RESPIRATORY: The thorax is free from signs of trauma. Lung sounds: clear to auscultation, normal respiratory effort CARDIAC: Regular rate and rhythm. Normal S1 and S2, without murmurs, gallops, or rubs. VASCULAR: No edema. ABDOMEN: Soft. Nondistended. Diffusely tender to even light palpation. No guarding. Normal bowel sounds. MUSCULOSKELETAL: Good range of motion of all major joints. Extremities without clubbing or cyanosis. NEUROLOGIC EXAM: Alert and oriented x 3. Speech normal. Follows commands. PSYCHIATRIC: Mood depressed. SKIN: No rash or lesions. - Labs 04/16/18 04:30 04/16/18 04:30 Diabetes panel 04/16/18 Range/Units 04:30 Sodium 135 L (136-145) mEq/L Potassium 3.2 L (3.5-5.1) mEq/L Chloride 104 (98-107) mEq/L Carbon Dioxide 28 (23-29) mEq/L BUN 6 (6-20) mg/dL Creatinine 0.40 L (0.60-1.20) mg/dL Glucose 100 (70-105) mg/dL Calcium 7.6 L (8.6-10.3) mg/dL Calcium panel 04/16/18 Range/Units 04:30 Calcium 7.6 L (8.6-10.3) mg/dL Pituitary panel 04/16/18 Range/Units 04:30 Sodium 135 L (136-145) mEq/L Potassium 3.2 L (3.5-5.1) mEq/L Chloride 104 (98-107) mEq/L Carbon Dioxide 28 (23-29) mEq/L BUN 6 (6-20) mg/dL Creatinine 0.40 L (0.60-1.20) mg/dL Glucose 100 (70-105) mg/dL Calcium 7.6 L (8.6-10.3) mg/dL Adrenal panel 04/16/18 Range/Units 04:30 Sodium 135 L (136-145) mEq/L Potassium 3.2 L (3.5-5.1) mEq/L Chloride 104 (98-107) mEq/L Carbon Dioxide 28 (23-29) mEq/L BUN 6 (6-20) mg/dL Creatinine 0.40 L (0.60-1.20) mg/dL Glucose 100 (70-105) mg/dL Calcium 7.6 L (8.6-10.3) mg/dL Consult Discharge Plan - Plan Referrals: Elise Moreno, [employer]LYST [Primary Care Provider] -
[2018-04-16] MEDS: *HR* Promethazine 25 MG/ML VIAL IVP PRN (17:41)
[2018-04-17] MEDS: Acetaminophen IV 1,000 MG/100 ML INFUS..BTL IVPB SCH ×2 (02:09→09:35)
[2018-04-17] MEDS: Ipratropium/Albuterol Neb 3 ML IH SCH ×5 (03:43→20:46)
[2018-04-17] MEDS: *HR* Heparin 5,000 UNIT/ML VIAL SQ SCH ×2 (05:26→18:38)
[2018-04-17] MEDS: Ketorolac 15 MG/ML VIAL IVP SCH (05:26)
[2018-04-17 05:38] LABS: Basophils % 0.2 %; Eosinophils # 0.1 K/mcL (0.0-0.6); Eosinophils % 0.9 %; Hematocrit 32.8 % (35.3-44.9); Hemoglobin 10.5 g/dL (11.5-15.4); Immature Granulocytes % 0.6 % (0-4); Lymphocytes # 1.4 K/mcL (0.6-4.6); Lymphocytes % 9.7 %; Mean Corpuscular Hemoglobin 28.1 pg (28.0-33.3); Mean Corpuscular Volume 87.7 fL (83.0-100.0); Mean Platelet Volume 9.2 fL (9.4-12.4); Monocytes # 1.8 K/mcL (0.0-1.3); Monocytes % 12.9 %; Neutrophils # 10.7 K/mcL (1.6-8.9); Platelet Count 439 K/mcL (140-400); Red Blood Count 3.74 M/mcL (3.82-4.97); Red Cell Distribution Width 13.5 % (11.5-14.5); Segmented Neutrophils % 75.7 %
[2018-04-17 05:58] LABS: BUN/Creatinine Ratio 17 (6-26); Blood Urea Nitrogen 6 mg/dL (6-20); Calcium 7.6 mg/dL (8.6-10.3); Carbon Dioxide 28 mEq/L (23-29); Chloride 108 mEq/L (98-107); Glucose 95 mg/dL (70-105); Osmolality,Calculated 289 (280-300); Potassium 3.7 mEq/L (3.5-5.1); Sodium 141 mEq/L (136-145); eGFR For Non-African Americans > 60 (> 60)
[2018-04-17 06:28] LABS: Reactive Lymphocytes Present (Not Present)
[2018-04-17] MEDS: MetroNIDAZOLE 500 MG/100 ML 500 MG/100 ML BAG IVPB SCH ×2 (09:57→16:15)
[2018-04-17] MEDS: Aspirin 81 MG TAB.CHEW PO SCH (09:57)
[2018-04-17] MEDS: Pantoprazole 40 MG VIAL IVP SCH (09:58)
--- NOTE | 2018-04-17 15:06 | General Surgery Progress Note ---
Date of Encounter: 04/17/18 Time of Encounter: 11:00 - Assessment and Plan (1) Segmental colitis Current Visit: Yes Status: Acute Segmental colitis of the sigmoid colon. Infectious process ischemic History of diverticulosis and diverticulitis. History of robotic sigmoid resection with 33 mm EEA stapling in July 2017 CT 04/14/2018 noted increased stool in contrast in the right colon, rectosigmoid anastomotic sutures are noted. There is circumferential thickening of the sigmoid colon, no mention of abscess. WBC increased to 14.8. Pt reports multiple episodes ("over 30") of diarrhea now with blood per rectum. Reports abdominal discomfort is improved but remains. Pt was on scheduled alternating ofirmev and toradol and remained fever free at that time. D/c'd 04/17/2018 to assess for fever given increase in WBC. Plan: Continue IV ATBX PRN pain and fever control PRN oxycodone for breakthrough pain continue G.I. and DVT prophylaxis ambulate as tolerated continue hospital care for IV antibiotics and observation Qualifiers: Digestive disease complication type: without complication Qualified Co de(s): K50.10 - Crohn's disease of large intestine without complications (2) Abdominal pain Current Visit: Yes Status: Acute CT of the abdomen and pelvis with IV and oral contrast on 04/14/2017 noted a fat containing umbilical hernia, subcutaneous right lower quadrant gas consistent with recent cholecystectomy, increase stool in contrast in the colon. Rectosigmoid anastomotic sutures are noted. Circumferential thickening of the sigmoid colon. No free fluid no abscess. Stomach appears normal see a/p above Qualifiers: Abdominal location: right upper quadrant Qualified Code(s): R10.11 - Right upper quadrant pain (3) Stool lu color Current Visit: Yes Status: Acute Ova, parasite, and cultures were sent to outside lab. Results pending. (4) Low back pain Current Visit: Yes Status: Acute Improved Qualifiers: Chronicity: acute Back pain laterality: bilateral Sciatica presence: without sciatica Qualified Code(s): M54.5 - Low back pain (5) Smoking history Current Visit: Yes Status: Acute Smoking cessation encouraged scheduled duonebs (6) Cystocele Current Visit: No Status: Chronic Pessary in place Management per Dr. Denise Qualifiers: Cystocele location: midline Qualified Code(s): N81.11 - Cystocele, midline Subjective Patient reports: still having pain, pain is less, tolerating a regular diet, voiding w/o difficulty, bowel movement, diarrhea, blood in stool, nausea, fever Objective Vital Signs - Last 8 Hours Temp Pulse Resp BP Pulse Ox 04/17/18 14:13 99.1 F 92 15 116/73 96 04/17/18 10:46 97.9 F 86 15 109/71 96 04/17/18 07:50 97.5 F L 81 15 113/71 96 Intake and Output 04/16/18 04/17/18 04/17/18 23:59 07:59 15:59 Intake Total 950 / 950 200 / 200 1627 / 1627 Output Total 350 / 350 250 / 250 0 / 0 Balance 600 / 600 -50 / -50 1627 / 1627 Intake: IV Fluids 950 / 950 200 / 200 1147 / 1147 0.9 % Sodium Chloride 1,000 ML 550 / 550 947 / 947 @ 125 mls/hr IVC .Q8H [facility] Rx#: [id number] Ofirmev 1,000 mg/100 ml 1,000 100 / 100 100 / 100 100 / 100 mg In 100 ml @ 400 mls/hr IVPB Q6H [facility] Rx#:[id number] Cipro Premix 400 MG/200 ML 400 200 / 200 mg In 200 ml @ 200 mls/hr IVPB Q12HR [facility] Rx#:[id number] Flagyl Premix 500 MG/100 ML 500 100 / 100 100 / 100 100 / 100 mg In 100 ml @ 100 mls/hr IVPB Q8HR [facility] Rx#:[id number] Oral 480 / 480 Output: Urine 350 / 350 250 / 250 0 / 0 Other: Meal Lunch Percent of Meal Consumed 50% Stool Size Moderate Stool Consistency loose liquid Stool Color Brown # Voids 2 1 # Urine Diapers 1 # Bowel Movements 1 1 Weight 65.7 kg Patient Weight 04/17/18 23:59 Weight 65.7 kg - General physical appearance no distress - Eyes normal ocular movement - ENT normal nares, normal mucosa - Neck Neck exam: trachea midline - Respiratory normal expansion, normal respiratory effort, clear to auscultation - Cardiovascular Cardiovascular exam: Present: RRR - Abdomen Abdomen: Present: bowel sounds present, soft, tender. Absent: guarding Abdominal Tenderness: diffusely - Integumentary no rash - Neurologic normal coordination, normal sensation - Musculoskeletal normal gait, normal posture - Psychiatric oriented to time, oriented to person, oriented to place, speech is normal, memory intact - Labs 04/17/18 05:20 04/17/18 05:20 Diabetes panel 04/17/18 Range/Units 05:20 Sodium 141 (136-145) mEq/L Potassium 3.7 (3.5-5.1) mEq/L Chloride 108 H (98-107) mEq/L Carbon Dioxide 28 (23-29) mEq/L BUN 6 (6-20) mg/dL Creatinine 0.35 L (0.60-1.20) mg/dL Glucose 95 (70-105) mg/dL Calcium 7.6 L (8.6-10.3) mg/dL Calcium panel 04/17/18 Range/Units 05:20 Calcium 7.6 L (8.6-10.3) mg/dL Pituitary panel 04/17/18 Range/Units 05:20 Sodium 141 (136-145) mEq/L Potassium 3.7 (3.5-5.1) mEq/L Chloride 108 H (98-107) mEq/L Carbon Dioxide 28 (23-29) mEq/L BUN 6 (6-20) mg/dL Creatinine 0.35 L (0.60-1.20) mg/dL Glucose 95 (70-105) mg/dL Calcium 7.6 L (8.6-10.3) mg/dL Adrenal panel 04/17/18 Range/Units 05:20 Sodium 141 (136-145) mEq/L Potassium 3.7 (3.5-5.1) mEq/L Chloride 108 H (98-107) mEq/L Carbon Dioxide 28 (23-29) mEq/L BUN 6 (6-20) mg/dL Creatinine 0.35 L (0.60-1.20) mg/dL Glucose 95 (70-105) mg/dL Calcium 7.6 L (8.6-10.3) mg/dL Consult Discharge Plan - Plan Referrals: Elise Moreno, FER [Primary Care Provider] -
[2018-04-17] MEDS: *HR* LORazepam 2 MG/ML VIAL IVP PRN (21:19)
[2018-04-18] MEDS: MetroNIDAZOLE 500 MG/100 ML 500 MG/100 ML BAG IVPB SCH ×3 (00:19→17:49)
[2018-04-18] MEDS: Ipratropium/Albuterol Neb 3 ML IH SCH ×7 (00:23→23:56)
[2018-04-18] MEDS ORDERED: Acetaminophen IV 1,000 MG/100 ML INFUS..BTL IVPB PRN (00:46)
[2018-04-18 05:43] LABS: Basophils % 0.1 %; Eosinophils # 0.1 K/mcL (0.0-0.6); Eosinophils % 0.5 %; Hematocrit 30.2 % (35.3-44.9); Hemoglobin 9.9 g/dL (11.5-15.4); Immature Granulocytes % 0.6 % (0-4); Lymphocytes # 1.5 K/mcL (0.6-4.6); Lymphocytes % 14.8 %; Mean Corpuscular HGB Conc 32.8 g/dL (31.6-35.5); Mean Corpuscular Hemoglobin 28.2 pg (28.0-33.3); Mean Platelet Volume 9.3 fL (9.4-12.4); Monocytes % 17.1 %; Neutrophils # 6.8 K/mcL (1.6-8.9); Platelet Count 418 K/mcL (140-400); Red Blood Count 3.51 M/mcL (3.82-4.97); Red Cell Distribution Width 13.6 % (11.5-14.5); Segmented Neutrophils % 66.9 %
[2018-04-18 05:54] LABS: Monocytes # 1.7 K/mcL (0.0-1.3)
[2018-04-18 06:01] LABS: BUN/Creatinine Ratio 15 (6-26); Blood Urea Nitrogen 5 mg/dL (6-20); Calcium 7.4 mg/dL (8.6-10.3); Carbon Dioxide 29 mEq/L (23-29); Chloride 107 mEq/L (98-107); Glucose 100 mg/dL (70-105); Osmolality,Calculated 287 (280-300); Potassium 3.3 mEq/L (3.5-5.1); Sodium 140 mEq/L (136-145); eGFR For Non-African Americans > 60 (> 60)
[2018-04-18] MEDS: *HR* Heparin 5,000 UNIT/ML VIAL SQ SCH ×2 (06:34→17:58)
[2018-04-18 06:55] LABS: Platelet Estimate Normal (Normal)
[2018-04-18] MEDS: Pantoprazole 40 MG VIAL IVP SCH (09:53)
[2018-04-18] MEDS: Aspirin 81 MG TAB.CHEW PO SCH (09:55)
[2018-04-18] MEDS: 0.9 % Sodium Chloride 1,000 ML IVC SCH (11:04)
--- NOTE | 2018-04-18 11:08 | General Surgery Progress Note ---
Date of Encounter: 04/18/18 Time of Encounter: 09:30 - Assessment and Plan (1) Segmental colitis Current Visit: Yes Status: Acute Plan for flexible sigmoidoscopy today with Dr. Haile- consent complete Fleets enema X 2 for prep NPO for procedure IV fluids- 75ml/hour Continue IV ATBX- Cipro and Flagyl Continue Aspirin PRN pain and fever control PRN oxycodone for breakthrough pain continue G.I. and DVT prophylaxis ambulate as tolerated continue hospital care for IV antibiotics and observation Qualifiers: Digestive disease complication type: without complication Qualified Code(s): K50.10 - Crohn's disease of large intestine without complications (2) Cystocele Current Visit: No Status: Chronic Pessary in place Management per Dr. Denise Qualifiers: Cystocele location: midline Qualified Code(s): N81.11 - Cystocele, midline (3) Stool lu color Current Visit: Yes Status: Acute Ova, parasite, and cultures were sent to outside lab. Results pending. (4) Acute urinary retention Current Visit: Yes Status: Acute Place leblanc catheter (5) DVT prophylaxis Current Visit: Yes Status: Acute Heparin 5,000 units subcutaneous twice daily for DVT prophylaxis Ambulate hallways 3 times a day with assistance EPCDs to bilateral lower extremities for DVT prophylaxis Subjective Patient reports: no new complaints, still having pain (patient states that it is unchanged), bowel movement, diarrhea, afebrile, other (Patient states that she is unable to void) Objective Vital Signs - Last 8 Hours Temp Pulse Resp BP Pulse Ox 04/18/18 10:58 98.5 F 71 14 131/80 97 04/18/18 07:54 98.3 F 04/18/18 07:41 98.0 F 71 16 118/76 94 04/18/18 04:36 98.5 F 80 16 118/68 93 Intake and Output 04/17/18 04/18/18 04/18/18 23:59 07:59 15:59 Intake Total 540 / 540 400 / 400 Output Total 0 / 0 0 / 0 Balance 540 / 540 400 / 400 0 / 0 Intake: IV Fluids 300 / 300 400 / 400 Ofirmev 1,000 mg/100 ml 1,000 100 / 100 mg In 100 ml @ 400 mls/hr IVPB Q6HR [facility] Rx#:[id number] Cipro Premix 400 MG/200 ML 400 200 / 200 200 / 200 mg In 200 ml @ 200 mls/hr IVPB Q12HR [facility] Rx#:[id number] Flagyl Premix 500 MG/100 ML 500 100 / 100 100 / 100 mg In 100 ml @ 100 mls/hr IVPB Q8HR [facility] Rx#:[id number] Oral 240 / 240 Output: Urine 0 / 0 0 / 0 Other: Meal Dinner Percent of Meal Consumed 5% # Bowel Movements 0 0 Weight 64.2 kg Patient Weight 04/18/18 23:59 Weight 64.2 kg - General physical appearance well developed, moderate distress, moderate pain - Eyes normal ocular movement - ENT normal mucosa, atraumatic, normocephalic - Neck Neck exam: trachea midline - Respiratory normal respiratory effort, clear to auscultation - Cardiovascular Cardiovascular exam: Present: RRR - Abdomen Abdomen: Present: bowel sounds present, soft, tender Abdominal Tenderness: diffusely - Neurologic CN 2-12 grossly intact - Psychiatric oriented to time, oriented to person, oriented to place, speech is normal, m [place] intact - Labs 04/18/18 05:28 04/18/18 05:28 Diabetes panel 04/18/18 Range/Units 05:28 Sodium 140 (136-145) mEq/L Potassium 3.3 L (3.5-5.1) mEq/L Chloride 107 (98-107) mEq/L Carbon Dioxide 29 (23-29) mEq/L BUN 5 L (6-20) mg/dL Creatinine 0.34 L (0.60-1.20) mg/dL Glucose 100 (70-105) mg/dL Calcium 7.4 L (8.6-10.3) mg/dL Calcium panel 04/18/18 Range/Units 05:28 Calcium 7.4 L (8.6-10.3) mg/dL Pituitary panel 04/18/18 Range/Units 05:28 Sodium 140 (136-145) mEq/L Potassium 3.3 L (3.5-5.1) mEq/L Chloride 107 (98-107) mEq/L Carbon Dioxide 29 (23-29) mEq/L BUN 5 L (6-20) mg/dL Creatinine 0.34 L (0.60-1.20) mg/dL Glucose 100 (70-105) mg/dL Calcium 7.4 L (8.6-10.3) mg/dL Adrenal panel 04/18/18 Range/Units 05:28 Sodium 140 (136-145) mEq/L Potassium 3.3 L (3.5-5.1) mEq/L Chloride 107 (98-107) mEq/L Carbon Dioxide 29 (23-29) mEq/L BUN 5 L (6-20) mg/dL Creatinine 0.34 L (0.60-1.20) mg/dL Glucose 100 (70-105) mg/dL Calcium 7.4 L (8.6-10.3) mg/dL Consult Discharge Plan - Plan Referrals: Elise Moreno, [facility]ER [Primary Care Provider] - - Attending Attestation For this encounter, I have reviewed the NAPRAPATH or PA documentation, treatment plan, and medical decision making; and I have had face to face time with this patient.
[2018-04-18] MEDS ORDERED: *HR* FentaNYL (PF) 100 MCG/2 ML VIAL ONE (12:46)
[2018-04-18] MEDS ORDERED: *HR* Midazolam HCl 5 MG/5 ML VIAL IVP ONE ×2 (12:46→13:08)
[2018-04-18] MEDS ORDERED: *HR* FentaNYL (PF) 100 MCG/2 ML VIAL IVP ONE (13:08)
--- NOTE | 2018-04-18 13:08 | Pre-Sedation Evaluation ---
Pre-sedation evaluation - Pre-sedation checklist Date of procedure: 04/18/18 Recent Vitals: Last Vital Signs Temp 98.5 F 04/18/18 10:58 Pulse 71 04/18/18 10:58 Resp 14 04/18/18 10:58 BP 131/80 04/18/18 10:58 Pulse Ox 97 04/18/18 10:58 H&P (including ROS) documented in medical record: Yes Previous reaction to sedatives/anesthetics: No Dietary Status: NPO after Midnight Airway Assessment: Patient can open mouth completely, TMJ function normal Dentition: No loose teeth or bridges Possible difficult airway: No ASA Classification *see protocol: CLASS II-Mild systemic disease
[2018-04-18] MEDS ORDERED: methylPREDNISolone 125 MG/2 ML VIAL IM ONE (16:47)
[2018-04-18] MEDS ORDERED: methylPREDNISolone 125 MG/2 ML VIAL IVP ONE (17:41)
[2018-04-18] MEDS: Acetaminophen IV 1,000 MG/100 ML INFUS..BTL IVPB PRN (17:55)
[2018-04-19] MEDS: MetroNIDAZOLE 500 MG/100 ML 500 MG/100 ML BAG IVPB SCH ×3 (01:08→14:15)
[2018-04-19] MEDS: *HR* LORazepam 2 MG/ML VIAL IVP PRN ×3 (01:15→20:41)
[2018-04-19] MEDS: 0.9 % Sodium Chloride 1,000 ML IVC SCH ×3 (01:17→20:40)
[2018-04-19 02:39] LABS: Basophils % 0.2 %; Hematocrit 31.8 % (35.3-44.9); Hemoglobin 10.5 g/dL (11.5-15.4); Immature Granulocytes % 0.6 % (0-4); Lymphocytes # 0.8 K/mcL (0.6-4.6); Lymphocytes % 15.8 %; Mean Corpuscular Hemoglobin 28.4 pg (28.0-33.3); Mean Corpuscular Volume 85.9 fL (83.0-100.0); Mean Platelet Volume 9.2 fL (9.4-12.4); Monocytes # 0.2 K/mcL (0.0-1.3); Monocytes % 4.4 %; Neutrophils # 4.1 K/mcL (1.6-8.9); Platelet Count 458 K/mcL (140-400); Red Cell Distribution Width 13.8 % (11.5-14.5)
[2018-04-19 02:58] LABS: BUN/Creatinine Ratio 21 (6-26); Blood Urea Nitrogen 6 mg/dL (6-20); Calcium 7.4 mg/dL (8.6-10.3); Carbon Dioxide 22 mEq/L (23-29); Chloride 106 mEq/L (98-107); Glucose 127 mg/dL (70-105); Osmolality,Calculated 289 (280-300); Potassium 3.2 mEq/L (3.5-5.1); Sodium 140 mEq/L (136-145); eGFR For Non-African Americans > 60 (> 60)
[2018-04-19 03:11] LABS: Platelet Estimate Increased (Normal); Reactive Lymphocytes Present (Not Present)
[2018-04-19] MEDS: Ipratropium/Albuterol Neb 3 ML IH SCH ×5 (04:03→19:58)
[2018-04-19] MEDS: *HR* Heparin 5,000 UNIT/ML VIAL SQ SCH ×2 (05:58→18:11)
[2018-04-19] MEDS: Nystatin SUSP 5 ML UD.LIQ PO SCH ×3 (13:13→20:41)
--- NOTE | 2018-04-19 13:13 | General Surgery Progress Note ---
<Andria Chung - Last Filed: 04/19/18 17:44> Date of Encounter: 04/19/18 Time of Encounter: 09:20 - Assessment and Plan (1) Segmental colitis Current Visit: Yes Status: Acute Segmental colitis of the sigmoid colon. History of diverticulosis and diverticulitis. History of robotic sigmoid resection with 33 mm EEA stapling in July 2017 CT 04/14/2018 noted increased stool in contrast in the right colon, rectosigmoid anastomotic sutures are noted. There is circumferential thickening of the sigmoid colon, no mention of abscess. Flex sigmoidoscopy on 04/18/18 showed discontinuous areas of bleeding ulcerated mucosa in sigmoid colon and rectum. No stigmata of recent bleeding. Concerning for possible inflammatory bowel disease. Today, patient is feeling better. Abdominal pain is improved. Tolerating clear liquid. No fever for 24 hours. Advance diet to full liquids. IV fluids- 75ml/hour Continue solumedrol 60 daily. Continue IV ATBX- Cipro and Flagyl Continue Aspirin PRN pain and fever control PRN oxycodone for breakthrough pain continue G.I. and DVT prophylaxis ambulate as tolerated continue hospital care for IV antibiotics and observation Qualifiers: Digestive disease complication type: without complication Qualified Code(s): K50.10 - Crohn's disease of large intestine without complications (2) Thrush Current Visit: Yes Status: Acute Nystatin swish and swallow (3) Stool lu color Current Visit: Yes Status: Acute Ova, parasite, and cultures were sent to outside lab. Results pending. (4) Acute urinary retention Current Visit: Yes Status: Acute leblanc catheter Subjective Narrative: Patient seen and examined. No acute events overnight. Patient is resting comfortably in bed. Patient states shes not doing well because IV is leaking and she needs to make a bowel movement and she needs help getting out of bed. States abdominal pain is improved. Reports abdominal pain comes and goes. Denies pain at this time. Reports little nausea only with eating. Tolerating clear liquids. Patient reports lesions in her mouth, nonpainful. States they feel like sandpaper. Had 4 bowel movements today, diarrhea but last movement had some lumps in it. Objective Intake and Output 04/18/18 04/19/18 04/19/18 23:59 07:59 15:59 Intake Total 400 / 400 1000 / 1000 Output Total 350 / 350 600 / 600 Balance 50 / 50 400 / 400 Intake: IV Fluids 400 / 400 1000 / 1000 0.9 % Sodium Chloride 1,000 ML 1000 / 1000 @ 75 mls/hr IVC .[id number] [facility] Rx #:[id number] Ofirmev 1,000 mg/100 ml 1,000 100 / 100 mg In 100 ml @ 400 mls/hr IVPB Q6HR [facility] Rx#:[id number] Cipro Premix 400 MG/200 ML 400 200 / 200 mg In 200 ml @ 200 mls/hr IVPB Q12HR [facility] Rx#:[id number] Flagyl Premix 500 MG/100 ML 500 100 / 100 mg In 100 ml @ 100 mls/hr IVPB Q8HR [facility] Rx#:[id number] Output: Catheter 350 / 350 600 / 600 Other: # Bowel Movements 1 Weight 63.2 kg Patient Weight 04/19/18 23:59 Weight 63.2 kg - Additional Exam VITAL SIGNS: Reviewed. See [facility] GENERAL: In no apparent distress. HEENT: Normocephalic, atraumatic, pupils are equal and reactive, extraocular motions intact, oral mucosa pink and moist. Small white plaques on left buccal mucosa without erythema. White plaques on tongue. CHEST/RESPIRATORY: The thorax is free from signs of trauma. Lung sounds: clear to auscultation, normal respiratory effort CARDIAC: Regular rate and rhythm. Normal S1 and S2, without murmur, gallops, or rubs. VASCULAR: No Edema. ABDOMEN: Soft. Obese. Nondistended. Nontender. Bowel sounds present. MUSCULOSKELETAL: Good range of motion of all major joints. Extremities without clubbing, cyanosis or edema. NEUROLOGIC EXAM: Alert. Not oriented. Speech normal. Follows commands. PSYCHIATRIC: Mood normal. SKIN: No rash or lesions. - Labs 04/19/18 02:20 04/19/18 02:20 Diabetes panel 04/19/18 Range/Units 02:20 Sodium 140 (136-145) mEq/L Potassium 3.2 L (3.5-5.1) mEq/L Chloride 106 (98-107) mEq/L Carbon Dioxide 22 L (23-29) mEq/L BUN 6 (6-20) mg/dL Creatinine 0.29 L (0.60-1.20) mg/dL Glucose 127 H (70-105) mg/dL Calcium 7.4 L (8.6-10.3) mg/dL Calcium panel 04/19/18 Range/Units 02:20 Calcium 7.4 L (8.6-10.3) mg/dL Pituitary panel 04/19/18 Range/Units 02:20 Sodium 140 (136-145) mEq/L Potassium 3.2 L (3.5-5.1) mEq/L Chloride 106 (98-107) mEq/L Carbon Dioxide 22 L (23-29) mEq/L BUN 6 (6-20) mg/dL Creatinine 0.29 L (0.60-1.20) mg/dL Glucose 127 H (70-105) mg/dL Calcium 7.4 L (8.6-10.3) mg/dL Adrenal panel 04/19/18 Range/Units 02:20 Sodium 140 (136-145) mEq/L Potassium 3.2 L (3.5-5.1) mEq/L Chloride 106 (98-107) mEq/L Carbon Dioxide 22 L (23-29) mEq/L BUN 6 (6-20) mg/dL Creatinine 0.29 L (0.60-1.20) mg/dL Glucose 127 H (70-105) mg/dL Calcium 7.4 L (8.6-10.3) mg/dL Consult Discharge Plan - Plan Referrals: Elise Moreno, ACID BATH MIXER [Primary Care Provider] - <Toby Sultana - Last Filed: 04/19/18 18:07> Date of Encounter: 04/19/18 Objective Vital Signs - Last 8 Hours Temp Pulse Resp BP Pulse Ox 04/19/18 16:57 100.7 F H 91 16 143/79 92 Intake and Output 04/19/18 04/19/18 04/19/18 07:59 15:59 23:59 Intake Total 1300 / 1300 295 / 295 271 / 271 Output Total 600 / 600 Balance 700 / 700 295 / 295 271 / 271 Intake: IV Fluids 1300 / 1300 295 / 295 271 / 271 0.9 % Sodium Chloride 1,000 ML 1000 / 1000 195 / 195 271 / 271 @ 75 mls/hr IVC .[id number] [facility] Rx #:[id number] Cipro Premix 400 MG/200 ML 400 200 / 200 mg In 200 ml @ 200 mls/hr IVPB Q12HR [facility] Rx#:[id number] Flagyl Premix 500 MG/100 ML 500 100 / 100 100 / 100 mg In 100 ml @ 100 mls/hr IVPB Q8HR [facility] Rx#:[id number] Oral 0 / 0 Output: Catheter 600 / 600 Other: Stool Size Moderate Stool Consistency loose formed Stool Characteristics Normal for Patient Stool Color Brown # Bowel Movements 1 1 Weight 63.2 kg Patient Weight 04/19/18 23:59 Weight 63.2 kg - Labs 04/19/18 02:20 04/19/18 02:20 Diabetes panel 04/19/18 Range/Units 02:20 Sodium 140 (136-145) mEq/L Potassium 3.2 L (3.5-5.1) mEq/L Chloride 106 (98-107) mEq/L Carbon Dioxide 22 L (23-29) mEq/L BUN 6 (6-20) mg/dL Creatinine 0.29 L (0.60-1.20) mg/dL Glucose 127 H (70-105) mg/dL Calcium 7.4 L (8.6-10.3) mg/dL Calcium panel 04/19/18 Range/Units 02:20 Calcium 7.4 L (8.6-10.3) mg/dL Pituitary panel 04/19/18 Range/Units 02:20 Sodium 140 (136-145) mEq/L Potassium 3.2 L (3.5-5.1) mEq/L Chloride 106 (98-107) mEq/L Carbon Dioxide 22 L (23-29) mEq/L BUN 6 (6-20) mg/dL Creatinine 0.29 L (0.60-1.20) mg/dL Glucose 127 H (70-105) mg/dL Calcium 7.4 L (8.6-10.3) mg/dL Adrenal panel 04/19/18 Range/Units 02:20 Sodium 140 (136-145) mEq/L Potassium 3.2 L (3.5-5.1) mEq/L Chloride 106 (98-107) mEq/L Carbon Dioxide 22 L (23-29) mEq/L BUN 6 (6-20) mg/dL Creatinine 0.29 L (0.60-1.20) mg/dL Glucose 127 H (70-105) mg/dL Calcium 7.4 L (8.6-10.3) mg/dL - Attending Attestation I examined this patient and my medical decision-making was reviewed with the Resident Physician. I agree with the documented findings, disposition and treatment plan as described except to the extent set forth below. I reviewed the above assessment and evaluation agree with the above plan. Patient and family never had several questions which I tried to answer to the best of my ability. She is still having some lower abdominal pain symptoms however she seems to have less diarrhea today that yesterday. She still having the same type of pain however it is not a severe. She did receive a dose of IV steroids yesterday and we have written a repeat for today. We will continue with IV antibiotics and continue to follow her labs. Will add full liquid diet as well. I have also brought up the possibility of adding cholestyramine however I would like to first see whether or not she improves with the above- mentioned measures.
[2018-04-19] MEDS: Pantoprazole 40 MG VIAL IVP SCH (13:14)
[2018-04-19] MEDS: Aspirin 81 MG TAB.CHEW PO SCH (13:14)
[2018-04-19] MEDS: methylPREDNISolone 125 MG/2 ML VIAL IVP SCH (17:03)
[2018-04-19] MEDS: Acetaminophen IV 1,000 MG/100 ML INFUS..BTL IVPB PRN (19:32)
[2018-04-20] MEDS: Ipratropium/Albuterol Neb 3 ML IH SCH ×7 (00:23→23:45)
[2018-04-20] MEDS: MetroNIDAZOLE 500 MG/100 ML 500 MG/100 ML BAG IVPB SCH ×3 (00:42→16:55)
[2018-04-20 04:49] LABS: Hematocrit 29.5 % (35.3-44.9); Hemoglobin 9.9 g/dL (11.5-15.4); Mean Corpuscular HGB Conc 33.6 g/dL (31.6-35.5); Mean Corpuscular Hemoglobin 28.4 pg (28.0-33.3); Mean Corpuscular Volume 84.5 fL (83.0-100.0); Mean Platelet Volume 9.5 fL (9.4-12.4); Platelet Count 452 K/mcL (140-400); Red Blood Count 3.49 M/mcL (3.82-4.97); Red Cell Distribution Width 13.8 % (11.5-14.5)
[2018-04-20 05:10] LABS: BUN/Creatinine Ratio 29 (6-26); Blood Urea Nitrogen 9 mg/dL (6-20); Calcium 7.5 mg/dL (8.6-10.3); Carbon Dioxide 29 mEq/L (23-29); Chloride 106 mEq/L (98-107); Glucose 171 mg/dL (70-105); Osmolality,Calculated 291 (280-300); Potassium 4.1 mEq/L (3.5-5.1); Sodium 139 mEq/L (136-145); eGFR For Non-African Americans > 60 (> 60)
[2018-04-20 05:53] LABS: Lymphocytes # 0.6 K/mcL (0.6-4.6); Monocytes # 0.6 K/mcL (0.0-1.3); Neutrophils # 5.8 K/mcL (1.6-8.9)
[2018-04-20 05:54] LABS: Platelet Estimate Increased (Normal); Reactive Lymphocytes Present (Not Present); Toxic Granulation Present (Not Present)
[2018-04-20] MEDS: *HR* Heparin 5,000 UNIT/ML VIAL SQ SCH ×2 (05:55→18:34)
[2018-04-20] MEDS: methylPREDNISolone 125 MG/2 ML VIAL IVP SCH (09:19)
[2018-04-20] MEDS: Nystatin SUSP 5 ML UD.LIQ PO SCH ×4 (09:19→20:35)
[2018-04-20] MEDS: Pantoprazole 40 MG VIAL IVP SCH (09:19)
[2018-04-20] MEDS: Aspirin 81 MG TAB.CHEW PO SCH (09:20)
[2018-04-20] MEDS: 0.9 % Sodium Chloride 1,000 ML IVC SCH (11:48)
--- NOTE | 2018-04-20 17:37 | General Surgery Progress Note ---
<Andria Chung - Last Filed: 04/20/18 17:36> Date of Encounter: 04/20/18 Time of Encounter: 08:45 - Assessment and Plan (1) Segmental colitis Current Visit: Yes Status: Acute Possible inflammatory bowel disease Segmental colitis of the sigmoid colon. History of diverticulosis and diverticulitis. History of robotic sigmoid resection with 33 mm EEA stapling in July 2017 CT 04/14/2018 noted increased stool in contrast in the right colon, rectosigmoid anastomotic sutures are noted. There is circumferential thickening of the sigmo id colon, no mention of abscess. Flex sigmoidoscopy on 04/18/18 showed discontinuous areas of bleeding ulcerated mucosa in sigmoid colon and rectum. No stigmata of recent bleeding. Concerning for possible inflammatory bowel disease. Today, patient is feeling better. Abdominal pain is improved. Tolerating full liquid. No fever for 24 hours. Advance to soft diet IV fluids- 75ml/hour Continue solumedrol 60 daily. Continue IV ATBX- Cipro and Flagyl Continue Aspirin PRN pain and fever control PRN oxycodone for breakthrough pain continue G.I. and DVT prophylaxis ambulate as tolerated continue hospital care for IV antibiotics and observation Qualifiers: Digestive disease complication type: without complication Qualified Code(s): K50.10 - Crohn's disease of large intestine without complications (2) Thrush Current Visit: Yes Status: Acute Nystatin swish and swallow Improving (3) Stool lu color Current Visit: Yes Status: Acute Ova, parasite, and cultures were sent to outside lab. Results pending. (4) Acute urinary retention Current Visit: Yes Status: Acute leblanc catheter Subjective Narrative: Patient seen and examined. No acute events overnight. Patient is resting comfortably in bed eating breakfast. Patient states the breakfast grits are making her stomach hurt and feel gassy. Patient indicates pain at epigastrium and belches multiple times during visit. Had milk last night at dinner, tolerated well. Admits lower abdominal pain is improved. Not having any lower abdominal pain at this time. Patient reports bowel movements are liquid and lumps, no blood. States she has anal pain from hemorrhoids. States thrush is getting better. Objective Vital Signs - Last 8 Hours Temp Pulse Resp BP Pulse Ox 04/20/18 11:59 98.3 F 84 14 124/74 95 Intake and Output 04/20/18 04/20/1819 07:59 15:59 23:59 Intake Total 940 / 940 383 / 383 Output Total 200 / 200 Balance 740 / 740 383 / 383 Intake: IV Fluids 100 / 100 383 / 383 0.9 % Sodium Chloride 1,000 ML 383 / 383 @ 75 mls/hr IVC .[id number] [facility] Rx #:[id number] Cipro Premix 400 MG/200 ML 400 mg In 200 ml @ 200 mls/hr IVPB Q12HR [facility] Rx#:[id number] Flagyl Premix 500 MG/100 ML 500 100 / 100 mg In 100 ml @ 100 mls/hr IVPB Q8HR [facility] Rx#:[id number] Oral 840 / 840 Output: Catheter 200 / 200 Other: Meal Breakfast Full Percent of Meal Consumed 50% Weight Patient Weight 04/21/18 00:59 Weight 68.5 kg - Additional Exam VITAL SIGNS: Reviewed. See [facility] GENERAL: In no apparent distress. HEENT: Normocephalic, atraumatic, pupils are equal and reactive, extraocular motions intact, oral mucosa pink and moist. White plaques on tongue. CHEST/RESPIRATORY: The thorax is free from signs of trauma. Lung sounds: clear to auscultation, normal respiratory effort CARDIAC: Regular rate and rhythm. Normal S1 and S2, without murmur, gallops, or rubs. VASCULAR: No Edema. ABDOMEN: Soft. Epigastrium is distended. Diffusely tender to palpation, most at epigastrium. Bowel sounds present. MUSCULOSKELETAL: Good range of motion of all major joints. Extremities without clubbing, cyanosis or edema. NEUROLOGIC EXAM: Alert and oriented x3. Speech normal. Follows commands. PSYCHIATRIC: Mood depressed. SKIN: No rash or lesions. - Labs 04/20/18 04:01 04/20/18 04:01 Diabetes panel 04/20/18 Range/Units 04:01 Sodium 139 (136-145) mEq/L Potassium 4.1 (3.5-5.1) mEq/L Chloride 106 (98-107) mEq/L Carbon Dioxide 29 (23-29) mEq/L BUN 9 (6-20) mg/dL Creatinine 0.31 L (0.60-1.20) mg/dL Glucose 171 H (70-105) mg/dL Calcium 7.5 L (8.6-10.3) mg/dL Calcium panel 04/20/18 Range/Units 04:01 Calcium 7.5 L (8.6-10.3) mg/dL Pituitary panel 04/20/18 Range/Units 04:01 Sodium 139 (136-145) mEq/L Potassium 4.1 (3.5-5.1) mEq/L Chloride 106 (98-107) mEq/L Carbon Dioxide 29 (23-29) mEq/L BUN 9 (6-20) mg/dL Creatinine 0.31 L (0.60-1.20) mg/dL Glucose 171 H (70-105) mg/dL Calcium 7.5 L (8.6-10.3) mg/dL Adrenal panel 04/20/18 Range/Units 04:01 Sodium 139 (136-145) mEq/L Potassium 4.1 (3.5-5.1) mEq/L Chloride 106 (98-107) mEq/L Carbon Dioxide 29 (23-29) mEq/L BUN 9 (6-20) mg/dL Creatinine 0.31 L (0.60-1.20) mg/dL Glucose 171 H (70-105) mg/dL Calcium 7.5 L (8.6-10.3) mg/dL Consult Discharge Plan - Plan Referrals: Elise Moreno, CUSTODIAL ENGINEER [Primary Care Provider] - <Toby Sultana - Last Filed: 04/21/18 06:46> Date of Encounter: 04/20/18 Objective Vital Signs - Last 8 Hours Temp Pulse Resp BP Pulse Ox 04/21/18 04:53 97.8 F 86 16 127/81 91 Intake and Output 04/20/18 04/20/18 04/21/18 15:59 23:59 07:59 Intake Total 940 / 940 683 / 683 717 / 717 Output Total 200 / 200 175 / 175 1250 / 1250 Balance 740 / 740 508 / 508 -533 / -533 Intake: IV Fluids 100 / 100 683 / 683 717 / 717 0.9 % Sodium Chloride 1,000 ML 383 / 383 617 / 617 @ 75 mls/hr IVC .[id number] [facility] Rx #:[id number] Cipro Premix 400 MG/200 ML 400 200 / 200 mg In 200 ml @ 200 mls/hr IVPB Q12HR [facility] Rx#:[id number] Flagyl Premix 500 MG/100 ML 500 100 / 100 100 / 100 100 / 100 mg In 100 ml @ 100 mls/hr IVPB Q8HR [facility] Rx#:[id number] Oral 840 / 840 0 / 0 0 / 0 Output: Urine 0 / 0 Catheter 200 / 200 175 / 175 1250 / 1250 Urethral (Leblanc) 175 / 175 Other: Meal Breakfast Full Percent of Meal Consumed 50% - Labs 04/20/18 04:01 04/20/18 04:01 - Attending Attestation I examined this patient and my medical decision-making was reviewed with the Resident Physician. I agree with the documented findings, disposition and treatment plan as described except to the extent set forth below. I reviewed the above assessment and evaluation and agree with the above plan. Patient admits to still present lower abdominal pain. States that the pain has improved and she did have several bowel movements however the bowel movement appeared to be more semi-solid. She admits to perianal discomfort/pain associated with hemorrhoids. Continue with IV steroids. Asked staff whether or not we have any moist wipes to fire equipment inspector helper in any of the perianal area after bowel movement. On soft foods. Dr. Haile to return tomorrow.
[2018-04-20] MEDS ORDERED: Acetaminophen 325 MG TABLET PO PRN (20:19)
[2018-04-20] MEDS: *HR* LORazepam 2 MG/ML VIAL IVP PRN (20:40)
[2018-04-21] MEDS: MetroNIDAZOLE 500 MG/100 ML 500 MG/100 ML BAG IVPB SCH ×4 (00:44→23:49)
[2018-04-21] MEDS: 0.9 % Sodium Chloride 1,000 ML IVC SCH (02:52)
[2018-04-21] MEDS: *HR* LORazepam 2 MG/ML VIAL IVP PRN (02:53)
[2018-04-21] MEDS: Ipratropium/Albuterol Neb 3 ML IH SCH ×5 (03:37→20:29)
[2018-04-21] MEDS: *HR* Heparin 5,000 UNIT/ML VIAL SQ SCH ×2 (05:57→17:13)
[2018-04-21 06:58] LABS: Hemoglobin 10.9 g/dL (11.5-15.4); Mean Corpuscular Hemoglobin 28.1 pg (28.0-33.3); Mean Corpuscular Volume 85.1 fL (83.0-100.0); Mean Platelet Volume 9.8 fL (9.4-12.4); Platelet Count 486 K/mcL (140-400); Red Blood Count 3.88 M/mcL (3.82-4.97)
[2018-04-21 07:17] LABS: BUN/Creatinine Ratio 24 (6-26); Blood Urea Nitrogen 7 mg/dL (6-20); Calcium 7.5 mg/dL (8.6-10.3); Carbon Dioxide 29 mEq/L (23-29); Chloride 104 mEq/L (98-107); Glucose 140 mg/dL (70-105); Osmolality,Calculated 286 (280-300); Potassium 3.6 mEq/L (3.5-5.1); Sodium 138 mEq/L (136-145); eGFR For Non-African Americans > 60 (> 60)
[2018-04-21 07:26] LABS: Lymphocytes # 0.5 K/mcL (0.6-4.6); Monocytes # 0.5 K/mcL (0.0-1.3); Neutrophils # 7.7 K/mcL (1.6-8.9); Platelet Estimate Increased (Normal)
[2018-04-21] MEDS: Aspirin 81 MG TAB.CHEW PO SCH (08:25)
[2018-04-21] MEDS: methylPREDNISolone 125 MG/2 ML VIAL IVP SCH (08:26)
[2018-04-21] MEDS: Nystatin SUSP 5 ML UD.LIQ PO SCH ×4 (08:26→21:35)
[2018-04-21] MEDS ORDERED: Furosemide 40 MG/4 ML VIAL IVP ONE (12:13)
--- NOTE | 2018-04-21 12:59 | General Surgery Progress Note ---
Date of Encounter: 04/21/18 Time of Encounter: 10:00 - Assessment and Plan (1) Segmental colitis Current Visit: Yes Status: Acute Segmental colitis of the sigmoid colon. Infection vs inflammatory History of diverticulosis and diverticulitis. History of robotic sigmoid resection with 33 mm EEA stapling in July 2017 CT 04/14/2018 noted increased stool in contrast in the right colon, rectosigmoid anastomotic sutures are noted. There is circumferential thickening of the sigmoid colon, no mention of abscess. WBC has normalized. she is on IV steroids (day 3) and states "50%" improvement. Check inflammatory bowel markers Stool panel and flex sig cultures remain pending consult GI Stop IVF Continue soft diet seriel abdominal exams repeat a.m. labs Qualifiers: Digestive disease complication type: without complication Qualified Code(s): K50.10 - Crohn's disease of large intestine without complications (2) Low back pain Current Visit: Yes Status: Acute Improved Qualifiers: Chronicity: acute Back pain laterality: bilateral Sciatica presence: without sciatica Qualified Code(s): M54.5 - Low back pain (3) Anxiety Current Visit: Yes Status: Acute start buspar prn (4) Stool lu color Current Visit: Yes Status: Acute Ova, parasite, and cultures were sent to outside lab. Results pending. (5) Smoking history Current Visit: Yes Status: Acute Smoking cessation encouraged scheduled duonebs refuses nicotine patch (6) Cystocele Current Visit: No Status: Chronic Pessary in place Management per Dr. Denise Qualifiers: Cystocele location: midline Qualified Code(s): N81.11 - Cystocele, midline (7) Abdominal pain Current Visit: Yes Status: Acute CT of the abdomen and pelvis with IV and oral contrast on 04/14/2017 noted a fat containing umbilical hernia, subcutaneous right lower quadrant gas consistent with recent cholecystectomy, increase stool in contrast in the colon. Rectosigmoid anastomotic sutures are noted. Circumferential thickening of the sigmoid colon. No free fluid no abscess. Stomach appears normal see a/p above Qualifiers: Abdominal location: right upper quadrant Qualified Code(s): R10.11 - Right upper quadrant pain Subjective Patient reports: still having pain, pain is less, tolerating liquids well, voiding w/o difficulty (per leblanc), bowel movement, diarrhea, nausea, afebrile Narrative: Tearful. States she "just cannot stop weeping." She requests something for anxiety ("like a valium"). Her is at bedside and has many questions re garding her current results, plan, and need for anxiety treatment Objective Vital Signs - Last 8 Hours Temp Pulse Resp BP Pulse Ox 04/21/18 11:14 98.9 F 98 16 136/83 95 04/21/18 04:53 97.8 F 86 16 127/81 91 Intake and Output 04/20/18 04/21/18 04/21/18 23:59 07:59 15:59 Intake Total 683 / 683 717 / 717 420 / 420 Output Total 175 / 175 1450 / 1450 250 / 250 Balance 508 / 508 -733 / -733 170 / 170 Intake: IV Fluids 683 / 683 717 / 717 300 / 300 0.9 % Sodium Chloride 1,000 ML 383 / 383 617 / 617 @ 75 mls/hr IVC .[id number] [facility] Rx #:[id number] Cipro Premix 400 MG/200 ML 400 200 / 200 200 / 200 mg In 200 ml @ 200 mls/hr IVPB Q12HR [facility] Rx#:[id number] Flagyl Premix 500 MG/100 ML 500 100 / 100 100 / 100 100 / 100 mg In 100 ml @ 100 mls/hr IVPB Q8HR [facility] Rx#:[id number] Oral 0 / 0 0 / 0 120 / 120 Output: Urine 0 / 0 Catheter 175 / 175 1450 / 1450 250 / 250 Urethral (Leblanc) 175 / 175 Other: Meal Breakfast Percent of Meal Consumed 100% Stool Consistency loose Stool Color Brown Blood Tinged # Bowel Movements 1 0 - General physical appearance moderate distress (tearful), moderate pain - Eyes normal ocular movement - ENT normal nares, normal mucosa - Neck Neck exam: trachea midline - Respiratory normal expansion, clear to auscultation - Cardiovascular Cardiovascular exam: Present: RRR - Abdomen Abdomen: Present: bowel sounds present, soft, tender. Absent: distended, guarding Abdominal Tenderness: diffusely (improved) - Integumentary no rash, no growths - Neurologic normal sensation - Musculoskeletal normal posture - Psychiatric oriented to time, oriented to person, oriented to place, speech is normal, memory intact - Labs 04/21/18 06:23 04/21/18 06:23 Diabetes panel 04/21/18 Range/Units 06:23 Sodium 138 (136-145) mEq/L Potassium 3.6 (3.5-5.1) mEq/L Chloride 104 (98-107) mEq/L Carbon Dioxide 29 (23-29) mEq/L BUN 7 (6-20) mg/dL Creatinine 0.29 L (0.60-1.20) mg/dL Glucose 140 H (70-105) mg/dL Calcium 7.5 L (8.6-10.3) mg/dL Calcium panel 04/21/18 Range/Units 06:23 Calcium 7.5 L (8.6-10.3) mg/dL Pituitary panel 04/21/18 Range/Units 06:23 Sodium 138 (136-145) mEq/L Potassium 3.6 (3.5-5.1) mEq/L Chloride 104 (98-107) mEq/L Carbon Dioxide 29 (23-29) mEq/L BUN 7 (6-20) mg/dL Creatinine 0.29 L (0.60-1.20) mg/dL Glucose 140 H (70-105) mg/dL Calcium 7.5 L (8.6-10.3) mg/dL Adrenal panel 04/21/18 Range/Units 06:23 Sodium 138 (136-145) mEq/L Potassium 3.6 (3.5-5.1) mEq/L Chloride 104 (98-107) mEq/L Carbon Dioxide 29 (23-29) mEq/L BUN 7 (6-20) mg/dL Creatinine 0.29 L (0.60-1.20) mg/dL Glucose 140 H (70-105) mg/dL Calcium 7.5 L (8.6-10.3) mg/dL Consult Discharge Plan - Plan Referrals: Elise Moreno, COMPUTER PROGRAMMER CHIEF [Primary Care Provider] -
--- NOTE | 2018-04-21 20:53 | Event Note ---
Date of Encounter: 04/21/18 Time of Encounter: 18:40 Pt seen. Full consult to follow. Pt with Ch diarrhea and lower abd pain. Sigmoidoscopy with Proctocolitis with large ulcers.R/o Infectious vs Inflammatory causes. Doing better since started on steroids . Per pt diarrhea, abd pain less, stool more formed and tolerating oral. Rec: Follow Path, stool culture, O/P, Cont Abs, steroids
[2018-04-22] MEDS: Ipratropium/Albuterol Neb 3 ML IH SCH ×4 (00:58→10:28)
[2018-04-22 02:02] LABS: Hematocrit 28.4 % (35.3-44.9); Hemoglobin 9.5 g/dL (11.5-15.4); Immature Granulocytes % 0.4 % (0-4); Lymphocytes % 19.2 %; Mean Corpuscular HGB Conc 33.5 g/dL (31.6-35.5); Mean Corpuscular Hemoglobin 28.4 pg (28.0-33.3); Mean Corpuscular Volume 84.8 fL (83.0-100.0); Mean Platelet Volume 9.6 fL (9.4-12.4); Monocytes % 18.4 %; Neutrophils # 3.3 K/mcL (1.6-8.9); Platelet Count 478 K/mcL (140-400); Red Blood Count 3.35 M/mcL (3.82-4.97); Red Cell Distribution Width 13.9 % (11.5-14.5)
[2018-04-22 02:20] LABS: BUN/Creatinine Ratio 22 (6-26); Blood Urea Nitrogen 6 mg/dL (6-20); Calcium 7.3 mg/dL (8.6-10.3); Carbon Dioxide 31 mEq/L (23-29); Chloride 102 mEq/L (98-107); Glucose 129 mg/dL (70-105); Osmolality,Calculated 287 (280-300); Potassium 3.4 mEq/L (3.5-5.1); Sodium 139 mEq/L (136-145); eGFR For Non-African Americans > 60 (> 60)
[2018-04-22 02:37] LABS: Platelet Estimate Increased (Normal)
[2018-04-22] MEDS: *HR* Heparin 5,000 UNIT/ML VIAL SQ SCH ×2 (05:31→18:28)
[2018-04-22] MEDS: MetroNIDAZOLE 500 MG/100 ML 500 MG/100 ML BAG IVPB SCH (08:52)
[2018-04-22] MEDS: Aspirin 81 MG TAB.CHEW PO SCH (08:53)
[2018-04-22] MEDS: methylPREDNISolone 125 MG/2 ML VIAL IVP SCH (08:53)
[2018-04-22] MEDS: Nystatin SUSP 5 ML UD.LIQ PO SCH ×4 (08:53→21:31)
--- NOTE | 2018-04-22 10:29 | General Surgery Progress Note ---
Date of Encounter: 04/22/18 Time of Encounter: 10:32 - Assessment and Plan (1) Segmental colitis Current Visit: Yes Status: Acute Segmental colitis of the sigmoid colon. Infection vs inflammatory History of diverticulosis and diverticulitis. History of robotic sigmoid resection with 33 mm EEA stapling in July 2017 CT 04/14/2018 noted increased stool in contrast in the right colon, rectosigmoid anastomotic sutures are noted. There is circumferential thickening of the sigmoid colon, no mention of abscess. WBC has normalized. she is on IV steroids (day 4) ESR and CRP elevated. ANCA and ASCA pending Stool studies pending, per lab should be resulted today Biopsies pending d/c leblanc patient may shower continue soft diet transition to po ATBX dietary consult for crohn's/colitis diet continue steroids continue buspar prn no need for repeat labs Qualifiers: Digestive disease complication type: without complication Qualified Code(s): K50.10 - Crohn's disease of large intestine without complications (2) Low back pain Current Visit: Yes Status: Acute Improved Qualifiers: Chronicity: acute Back pain laterality: bilateral Sciatica presence: without sciatica Qualified Code(s): M54.5 - Low back pain (3) Anxiety Current Visit: Yes Status: Acute buspar prn (4) Stool lu color Current Visit: Yes Status: Resolved Ova, parasite, and cultures were sent to outside lab. Results pending. (5) Smoking history Current Visit: Yes Status: Acute Smoking cessation encouraged prn duonebs refuses nicotine patch (6) Cystocele Current Visit: No Status: Chronic Pessary in place Management per Dr. Denise Qualifiers: Cystocele location: midline Qualified Code(s): N81.11 - Cystocele, midline (7) Abdominal pain Current Visit: Yes Status: Acute CT of the abdomen and pelvis with IV and oral contrast on 04/14/2017 noted a fat containing umbilical hernia, subcutaneous right lower quadrant gas consistent wi th recent cholecystectomy, increase stool in contrast in the colon. Rectosigmoid anastomotic sutures are noted. Circumferential thickening of the sigmoid colon. No free fluid no abscess. Stomach appears normal see a/p above Qualifiers: Abdominal location: right upper quadrant Qualified Code(s): R10.11 - Right upper quadrant pain Subjective Patient reports: no new complaints, feels better, still having pain, pain is less, tolerating liquids well, voiding w/o difficulty, flatus, bowel movement, afebrile Objective Vital Signs - Last 8 Hours Temp Pulse Resp BP Pulse Ox 04/22/18 09:56 98.6 F 92 14 111/72 94 04/22/18 08:17 98.5 F 88 16 128/75 91 Intake and Output 04/21/18 04/22/18 04/22/18 23:59 07:59 15:59 Intake Total 1020 / 1020 300 / 300 Output Total 700 / 700 1100 / 1100 200 / 200 Balance 320 / 320 -800 / -800 -200 / -200 Intake: IV Fluids 900 / 900 300 / 300 0.9 % Sodium Chloride 1,000 ML 600 / 600 @ 75 mls/hr IVC .[id number] [facility] Rx #:[id number] Cipro Premix 400 MG/200 ML 400 200 / 200 200 / 200 mg In 200 ml @ 200 mls/hr IVPB Q12HR [facility] Rx#:[id number] Flagyl Premix 500 MG/100 ML 500 100 / 100 100 / 100 mg In 100 ml @ 100 mls/hr IVPB Q8HR [facility] Rx#:[id number] Oral 120 / 120 Output: Catheter 700 / 700 1100 / 1100 200 / 200 Other: Meal Dinner Percent of Meal Consumed 5% Stool Size Small Stool Consistency soft Stool Color Brown # Bowel Movements 1 0 - General physical appearance no distress - Eyes normal ocular movement - ENT atraumatic, normocephalic - Neck Neck exam: trachea midline - Respiratory normal expansion, normal respiratory effort - Cardiovascular Cardiovascular exam: Present: RRR - Abdomen Abdomen: Present: bowel sounds present, soft, non tender - Integumentary no rash - Neurologic normal sensation - Musculoskeletal normal posture - Psychiatric oriented to time, oriented to person, oriented to place, speech is normal, memory intact - Labs 04/22/18 01:24 04/22/18 01:24 Diabetes panel 04/22/18 Range/Units 01:24 Sodium 139 (136-145) mEq/L Potassium 3.4 L (3.5-5.1) mEq/L Chloride 102 (98-107) mEq/L Carbon Dioxide 31 H (23-29) mEq/L BUN 6 (6-20) mg/dL Creatinine 0.27 L (0.60-1.20) mg/dL Glucose 129 H (70-105) mg/dL Calcium 7.3 L (8.6-10.3) mg/dL Calcium panel 04/22/18 Range/Units 01:24 Calcium 7.3 L (8.6-10.3) mg/dL Pituitary panel 04/22/18 Range/Units 01:24 Sodium 139 (136-145) mEq/L Potassium 3.4 L (3.5-5.1) mEq/L Chloride 102 (98-107) mEq/L Carbon Dioxide 31 H (23-29) mEq/L BUN 6 (6-20) mg/dL Creatinine 0.27 L (0.60-1.20) mg/dL Glucose 129 H (70-105) mg/dL Calcium 7.3 L (8.6-10.3) mg/dL Adrenal panel 04/22/18 Range/Units 01:24 Sodium 139 (136-145) mEq/L Potassium 3.4 L (3.5-5.1) mEq/L Chloride 102 (98-107) mEq/L Carbon Dioxide 31 H (23-29) mEq/L BUN 6 (6-20) mg/dL Creatinine 0.27 L (0.60-1.20) mg/dL Glucose 129 H (70-105) mg/dL Calcium 7.3 L (8.6-10.3) mg/dL Consult Discharge Plan - Plan Referrals: Elise Moreno, DOG OR HORSE RACING OFFICIAL [Primary Care Provider] -
[2018-04-22] MEDS ORDERED: Ipratropium/Albuterol Neb 3 ML IH PRN (10:30)
[2018-04-22] MEDS: metroNIDAZOLE 500 MG TABLET PO SCH ×3 (11:08→21:31)
--- NOTE | 2018-04-22 18:05 | Gastroenterology Consult Note ---
<Marcus Fitzgerald Rey - Last Filed: 04/22/18 18:03> Date of Encounter: 04/22/18 Time of Encounter: 11:55 - Assessment and plan (1) Proctocolitis Current Visit: Yes Status: Acute Assessment and plan: Flexible sigmoidoscopy with proctocolitis with large ulcers, infectious vs inflammatory (Crohn's), pathology pending. Check stool culture, ova, and parasite. ESR and CRP slightly elevated. ASCA and ANCA pending. Continue antibiotics and steroids. Follow pathology, stool culture, ova/parasite. (2) Abdominal pain Current Visit: Yes Status: Acute Qualifiers: Abdominal location: right upper quadrant Qualified Code(s): R10.11 - Right upper quadrant pain - Time Spent With Patient Total time spent is greater than 50% in coordination of care (as documented) at patient's floor/unit and/or counseling patient: GI History of Present Illness - Data of Consult Patient: new to practice Consult date: 04/22/18 Requesting Physician: Kali Haile DO - Consult Narrative Reason for consult: Possible IBD History of present illness: Ms. Plummer is a 57 year old female with PMHx of COPD, GERD, kidney stones, s/p cholecystectomy 04/10/2017 was admitted with RUQ pain, fever, diarrhea, and white colored stool. CT A/P with rectosigmoid anastomotic sutures, circumferential thickening of the sigmoid colon. Flexible sigmoidoscopy with proctocolitis with large ulcers, infectious vs inflammatory (Crohn's), pathology pending. Symptoms have improved since starting on steroids. ESR and CRP elevated. ANCA and ASCA pending. Procedures: None NSAIDs: None Anticoagulation: None Past Med Surg Social Fam HX - Past Medical History Medical history: COPD, GERD, kidney stones, other Additional medical history: mitral valve prolapse. SMOKER. CATARACTS. DIVERTICULITIS. HIATAL HERNIA. pneumonia Psychiatric history: no psych history - Past Surgical History Surgical History: colectomy, orthopedic, other, other Additional surgical history: R foot reattached. reconstructive ovarian surgery. cyst removed on R wrist. robotic sigmoid resection with 33 mm EEA stapling. robotic cholecystectomy - Social History Smoking Status: Current every day smoker Smokeless Tobacco Status: No Alcohol use: none, occasionally Drug use: none - Family History Mother Living Status: Hx Family Cancer: Yes ("cancer in spine") Hx Family GI Disorders: Yes (diverticulitis) Father Living Status: Hx Family Cardiac Disorders: Yes (7 [place]) Hx Family Neurologic Disorders: Yes (CVA) - Gastrointestinal Gastrointestinal: Present: as per HPI - Constitutional Constitutional: as per HPI - EENT Eyes: as per HPI Ears: Present: as per HPI Nose, mouth and throat: Present: as per HPI - Cardiovascular Cardiovascular ROS: Present: as per HPI - Respiratory Respiratory IM: Present: as per HPI - Genitourinary Genitourinary: Absent: change in color, Urinary frequency - Neurological ROS Neurological GI: Present: as per HPI - Hematologic/Lymphatic Hematologic/Lymphatic pediatric: Present: as per HPI - Musculoskeletal Musculoskeletal ROS GI: Present: as per HPI - Integumentary Integumentary GI: Present: as per HPI - Psychiatric ROS Psychiatric GI: Present: as per HPI - Endocrine Endocrine IM: Present: as per HPI - Constitutional Vitals: Temp Pulse Resp BP Pulse Ox 98.2 F 75 14 117/77 94 04/22/18 14:25 04/22/18 14:25 04/22/18 14:25 04/22/18 14:25 04/22/18 14:25 General appearance: Present: cooperative, A&O X 3, no acute distress, answers questions appropriately - Head Head exam: Present: atraumatic, normocephalic - Eye Eye exam: Present: normal appearance, sclera anicteric - ENT ENT exam: Present: mucous membranes moist - Neck Neck exam general surgery: Present: normal inspection, trachea midline - Respiratory Respiratory exam: Present: CTAB. Absent: rales, rhonchi - Cardiovascular Cardiovascular exam: Present: RRR, +S1, +S2 - GI/Abdominal GI/Abdominal exam: Present: soft, no peritoneal signs. Absent: distended, firm, guarding, tenderness - Rectal Rectal exam: Present: deferred - Extremities Exam Extremities exam: Present: warm - Neurological Exam Neurological exam: Present: no focal deficits - Psychiatric Psychiatric exam: Present: normal affect, normal mood - Skin Skin exam: Present: dry, intact, normal color, warm Results - Labs CBC & Chem 7: 04/22/18 01:24 04/22/18 01:24 Labs: Last Result ESR 46 mm/hr (0-15) H 04/21/18 09:03 Calcium 7.3 mg/dL (8.6-10.3) L 04/22/18 01:24 C-Reactive Protein 65 mg/L (Less than 10) H 04/21/18 09:03 Entire Visit Hgb 9.5 g/dL (11.5-15.4) L 04/22/18 01:24 Hct 28.4 % (35.3-44.9) L 04/22/18 01:24 PT 14.6 Seconds (9.4-12.1) H 04/14/18 17:57 Total Bilirubin 0.2 mg/dL (0.3-1.0) L 04/14/18 17:57 AST 13 Units/L (13-39) 04/14/18 17:57 ALT 19 Units/L (7-52) 04/14/18 17:57 Amylase 17 Units/L (29-103) L 04/14/18 17:57 - ABG ABG results: PT/INR, D-dimer PT 14.6 Seconds (9.4-12.1) H 04/14/18 17:57 Consult Discharge Plan - Plan Referrals: Elise Moreno, VIRTUAL OFFICE ASSISTANT [Primary Care Provider] - <Ambrosio Gonzalez - Last Filed: 04/22/18 18:19> Date of Encounter: 04/22/18 Time of Encounter: 14:30 - Time Spent With Patient Total time spent is greater than 50% in coordination of care (as documented) at patient's floor/unit and/or counseling patient: GI History of Present Illness - Data of Consult Requesting Physician: Kali Haile DO - Consult Narrative History of present illness: Ms. Plummer is a 57 year old female - Constitutional Vitals: Temp Pulse Resp BP Pulse Ox 98.2 F 75 14 117/77 94 04/22/18 14:25 04/22/18 14:25 04/22/18 14:25 04/22/18 14:25 04/22/18 14:25 Results - Labs CBC & Chem 7: 04/22/18 01:24 04/22/18 01:24 Labs: Last Result ESR 46 mm/hr (0-15) H 04/21/18 09:03 Calcium 7.3 mg/dL (8.6-10.3) L 04/22/18 01:24 C-Reactive Protein 65 mg/L (Less than 10) H 04/21/18 09:03 Entire Visit Hgb 9.5 g/dL (11.5-15.4) L 04/22/18 01:24 Hct 28.4 % (35.3-44.9) L 04/22/18 01:24 PT 14.6 Seconds (9.4-12.1) H 04/14/18 17:57 Total Bilirubin 0.2 mg/dL (0.3-1.0) L 04/14/18 17:57 AST 13 Units/L (13-39) 04/14/18 17:57 ALT 19 Units/L (7-52) 04/14/18 17:57 Amylase 17 Units/L (29-103) L 04/14/18 17:57 - ABG ABG results: PT/INR, D-dimer PT 14.6 Seconds (9.4-12.1) H 04/14/18 17:57 - Attending Attestation I have personally performed a face to face evaluation on this patient. I have reviewed and agree with the care plan. History and Exam by me shows: Patient seen. Per patient abdominal pain is better and also diarrhea is resolving. On examination abdomen is soft mild tenderness in the lower abdomen. Assessment: Patient with proctocolitis inflammatory versus infectious patient is doing well on IV antibiotic along with IV steroids. Recommendation: Follow path continue IV steroid for now along with antibiotics. Stool studies including ova and parasite
[2018-04-23] MEDS: *HR* Heparin 5,000 UNIT/ML VIAL SQ SCH ×2 (05:53→18:24)
[2018-04-23] MEDS: metroNIDAZOLE 500 MG TABLET PO SCH ×3 (08:41→20:40)
[2018-04-23] MEDS: Nystatin SUSP 5 ML UD.LIQ PO SCH ×4 (08:41→20:41)
[2018-04-23] MEDS: methylPREDNISolone 125 MG/2 ML VIAL IVP SCH (08:41)
[2018-04-23] MEDS: Aspirin 81 MG TAB.CHEW PO SCH (08:41)
--- NOTE | 2018-04-23 15:24 | General Surgery Progress Note ---
Date of Encounter: 04/23/18 Time of Encounter: 15:00 - Assessment and Plan (1) Segmental colitis Current Visit: Yes Status: Acute S/P Flex Sigmoidoscopy on 04/18/[address] Haile Rectum, biopsy: - Negative for malignancy - Mucosal erosion with focal active cryptitis and increased mixed inflammation within the lamina propria. (See note) Colon, sigmoid, biopsy: - Negative for malignancy - Mucosal erosion with focal active cryptitis, increased mixed inflammation within the lamina propria and detached acutely inflamed granulation tissue with fibrinous exudate Dr Haile to further discuss pathology with Gastroenterology Continue soft diet Continue PO cipro and flagyl Continue IV steriods Continue Aspirin continue G.I. and DVT prophylaxis ambulate as tolerated Qualifiers: Digestive disease complication type: without complication Qualified Code(s): K50.10 - Crohn's disease of large intestine without complications (2) Cystocele Current Visit: No Status: Chronic Pessary in place Management per Dr. Denise Qualifiers: Cystocele location: midline Qualified Code(s): N81.11 - Cystocele, midline (3) Stool lu color Current Visit: Yes Status: Resolved Ova, parasite, and cultures were sent to outside lab. Results pending. (4) DVT prophylaxis Current Visit: Yes Status: Acute Heparin 5,000 units subcutaneous twice daily for DVT prophylaxis Ambulate hallways 3 times a day with assistance EPCDs to bilateral lower extremities for DVT prophylaxis Subjective Patient reports: no new complaints, feels better, still having pain, pain is less, tolerating a regular diet, voiding w/o difficulty, flatus, bowel movement, afebrile Objective Vital Signs - Last 8 Hours Temp Pulse Resp BP Pulse Ox 04/23/18 14:31 97.6 F 80 15 120/76 93 04/23/18 10:17 98.4 F 97 15 123/73 94 Intake and Output 04/22/18 04/23/18 04/23/18 23:59 07:59 15:59 Intake Total 120 / 120 100 / 100 720 / 720 Output Total 0 / 0 0 / 0 0 / 0 Balance 120 / 120 100 / 100 720 / 720 Intake: Oral 120 / 120 100 / 100 720 / 720 Output: Urine 0 / 0 0 / 0 0 / 0 Other: Meal Dinner Lunch Percent of Meal Consumed 90% 25% Stool Size Small Moderate Stool Consistency loose liquid soft soft Stool Color Brown Brown Blood Tinged # Voids 1 2 # Bowel Movements 2 Weight 67.1 kg Patient Weight 04/23/18 23:59 Weight 67.1 kg - General physical appearance well developed, well nourished, no distress - Eyes normal ocular movement - ENT normal mucosa, atraumatic, normocephalic - Neck Neck exam: trachea midline - Respiratory normal respiratory effort, clear to auscultation - Cardiovascular Cardiovascular exam: Present: RRR - Abdomen Abdomen: Present: bowel sounds present, soft, tender Abdominal Tenderness: LLQ, suprapubic - Neurologic CN 2-12 grossly intact - Psychiatric oriented to time, oriented to person, oriented to place, speech is normal, memory intact - Labs 04/22/18 01:24 04/22/18 01:24 Consult Discharge Plan - Plan Referrals: Elise Moreno, FIELD CHECKER [Primary Care Provider] - - Attending Attestation For this encounter, I have reviewed the WEB USER EXPERIENCE STRATEGIST or PA documentation, treatment plan, and medical decision making; and I have had face to face time with this patient.
--- NOTE | 2018-04-23 16:06 | Event Note ---
Date of Encounter: 04/23/18 Time of Encounter: 15:30 Pt seen. Abd pain is better. O/E AAO, and soft. A: Pt with proctitis/sigmoid colitis. Path unremarkable ( ischemic vs infectious vs drug induced) Doing well with IV stroids Rec: PO Entocort 9 mg ( My off will send the prescription), Flagyl/cipro x 10 days. F/u with GI next week.
[2018-04-24] MEDS: *HR* Heparin 5,000 UNIT/ML VIAL SQ SCH (05:36)
[2018-04-24 06:37] VITALS: BP 139/82
[2018-04-24] MEDS: Nystatin SUSP 5 ML UD.LIQ PO SCH (09:03)
[2018-04-24] MEDS: methylPREDNISolone 125 MG/2 ML VIAL IVP SCH (09:03)
[2018-04-24] MEDS: Aspirin 81 MG TAB.CHEW PO SCH (09:05)
[2018-04-24] MEDS: metroNIDAZOLE 500 MG TABLET PO SCH (09:05)
--- NOTE | 2018-04-24 09:09 | Discharge Summary ---
Orders not resulted at time of discharge: Pending orders 04/21/18 09:03 MPO/PR3 (ANCA) Antibodies Stat Saccharomyces cerevisiae Abs Stat 04/22/18 13:35 Culture,Stool [RM] Routine 04/22/18 19:15 Ova & Parasite Exam Routine Date of Encounter: 04/24/18 Time of Encounter: 09:35 - Discharge Diagnosis (1) Segmental colitis Priority: Primary Status: Acute Qualifiers: Digestive disease complication type: without complication Qualified Code(s): K50.10 - Crohn's disease of large intestine without complications (2) Low back pain Priority: Secondary Status: Resolved Qualifiers: Chronicity: acute Back pain laterality: bilateral Sciatica presence: without sciatica Qualified Code(s): M54.5 - Low back pain (3) Anxiety Priority: Secondary Status: Acute (4) Stool lu color Priority: Secondary Status: Resolved (5) Smoking history Priority: Secondary Status: Resolved (6) Cystocele Priority: Secondary Status: Chronic Qualifiers: Cystocele location: midline Qualified Code(s): N81.11 - Cystocele, midline (7) Abdominal pain Priority: Secondary Status: Resolved Qualifiers: Abdominal location: right upper quadrant Qualified Code(s): R10.11 - Right upper quadrant pain General Surgery Exam Initial Vital Signs Temp Pulse Resp BP Pulse Ox 100.2 F H 93 18 129/66 91 04/14/18 21:20 04/14/18 21:20 04/14/18 21:20 04/14/18 21:20 04/14/18 21:20 Vital Signs Temp Pulse Resp BP Pulse Ox 04/24/18 06:36 98.1 F 81 15 139/82 95 04/24/18 04:20 98.6 F 86 16 153/84 93 04/23/18 19:50 98.6 F 85 16 123/71 96 04/23/18 14:31 97.6 F 80 15 120/76 93 04/23/18 10:17 98.4 F 97 15 123/73 94 Intake and Output 04/23/18 04/24/18 04/24/18 23:59 07:59 15:59 Intake Total 0 / 0 120 / 120 240 / 240 Output Total 0 / 0 Balance 0 / 0 120 / 120 240 / 240 Intake: Oral 0 / 0 120 / 120 240 / 240 Output: Urine 0 / 0 Other: Meal Dinner Breakfast Percent of Meal Consumed 25% 15% # Voids 1 Weight 68.3 kg Patient Weight 04/24/18 23:59 Weight 68.3 kg VITAL SIGNS: Reviewed. See [facility] GENERAL: In no apparent distress. HEENT: Normocephalic, atraumatic, pupils are equal and reactive, extraocular motions intact, oropharynx is pink and moist, there is no neck adenopathy or JVD noted. CHEST/RESPIRATORY: The thorax is free from signs of trauma. Lung sounds: clear to auscultation, normal respiratory effort CARDIAC: Regular rate and rhythm. Normal S1 and S2, without murmurs, gallops, or rubs. VASCULAR: No Edema. 2+ peripheral pulses. ABDOMEN: soft, nontender, active bowel sounds MUSCULOSKELETAL: Good range of motion of all major joints. Extremities without clubbing, cyanosis or edema. NEUROLOGIC EXAM: Alert and oriented x 3. Speech normal. Follows commands. PSYCHIATRIC: Mood normal. SKIN: No rash or lesions. - Hospital Course Hospital course: Ms. Plummer is a 57 year old female who presented on 04/14/2018 with complaints of abdominal pain and fever. She was status post cholecystectomy and was therefore admitted for work up to rule out biloma. Bile leak was ruled out. She was noted to have segmental colitis ischemic vs infectious vs inflammatory. ESR and CRP were elevated, ANCA and ASCA negative. She was treated with IV ATBX, steroids, ASA, and bowel rest. She underwent a flexsig which noted diffuse areas of ulceration. Pathology was indeterminate. She was seen by gastroenterology and recommended to start treatment for presumed Crohn's disease. She is ambulating and voiding without difficulty, tolerating a diet without nausea or vomiting, vital signs are stable, and she is afebrile. We will begin discharge planning to home with a follow-up with [facility] and 2 months. She will be discharged on Entocort and prednisone taper as well as omeprazole and a baby aspirin until confirmative diagnosis is made Time spent discussing smoking cessation with patient: 3 to 10 minutes - Time Spent with Patient Total time spent providing and/or coordinating discharge services: - Discharge Medications Prescriptions: New Ondansetron ODT [Zofran ODT] 4 mg PO Q6HR PRN #30 tab.rapdis PRN Reason: Nausea Aspirin 81 mg PO DAILY 90 Days #90 tab.chew Budesonide [Budesonide ER] 9 mg PO DAILY #30 tabdr...er Buspirone HCl [Buspar] 10 mg PO BID PRN #60 tab PRN Reason: Anxiety Ciprofloxacin [Cipro] 500 mg PO BID 14 Days #28 tablet metroNIDAZOLE [Flagyl] 500 mg PO TID #14 tablet Nystatin [Nystatin Suspension] 100,000 units PO QID 14 Days #120 ml Omeprazole [PriLOSEC] 40 mg PO DAILY #30 cap predniSONE [PredniSONE] 10 mg PO AD 35 Days #74 tablet Zolpidem [Ambien] 5 mg PO HS PRN 30 Days #30 tablet PRN Reason: Insomnia Home Medications: Aspirin 81 mg PO DAILY 90 Days #90 tab.chew 04/24/18 [Rx] Budesonide [Budesonide ER] 9 mg PO DAILY #30 tabdr...er 04/24/18 [Rx] Buspirone HCl [Buspar] 10 mg PO BID PRN #60 tab 04/24/18 [Rx] Ciprofloxacin [Cipro] 500 mg PO BID 14 Days #28 tablet 04/24/18 [Rx] Nystatin [Nystatin Suspension] 100,000 units PO QID 14 Days #120 ml 04/24/18 [Rx] Omeprazole [PriLOSEC] 40 mg PO DAILY #30 cap 04/24/18 [Rx] Ondansetron ODT [Zofran ODT] 4 mg PO Q6HR PRN #30 tab.rapdis 04/24/18 [Rx] Zolpidem [Ambien] 5 mg PO HS PRN 30 Days #30 tablet 04/24/18 [Rx] metroNIDAZOLE [Flagyl] 500 mg PO TID #14 tablet 04/24/18 [Rx] predniSONE [PredniSONE] 10 mg PO AD 35 Days #74 tablet 04/24/18 [Rx] Allergies/Adverse Reactions: Allergy/AdvReac Type Severity Reaction Status Date / Time doxycycline [From Vibramycin] Allergy Gastrointestinal Verified 04/10/18 06:55 Upset shellfish derived Allergy Vomiting Verified 04/10/18 06:55 Date of admission: 04/14/18 17:16 Primary care physician: Elise Moreno CNP Consults: 04/21/18 12:10 Consult to Gastroenterology [CONS] Stat Consulting Provider: [facility] Reason for Consult: possible inflammatory bowel disease; Dr. Haile spoke with Dr. Gonzalez Time Notified: 12:11 Call Completed: Yes 04/22/18 10:24 consult to resaw operator [Consult to Nutrition] [CONS] Stat Comment: Crohn's/colitis diet Consulting Provider: NUTRITION Reason for Dietary Consult: Diet Education Discharging clinician: Kali Mariee) Anticipated date of discharge: 04/24/18 Labs on day of discharge: Labs from last 24 hours 04/21/18 04/15/18 04/15/18 09:03 15:11 15:11 Myeloperoxidase Ab 0 Serine Protease 3 Ab 0 Miscellaneous Test SEE BELOW SEE BELOW 04/15/18 15:11 Myeloperoxidase Ab Serine Protease 3 Ab Miscellaneous Test SEE BELOW Preliminary micro results at discharge 04/22/18 13:35 Stool Culture - Preliminary Stool - Impressions ITS Impressions Abdomen/Pelvis CT 04/14/18 20:00 IMPRESSION: Pneumoperitoneum consistent with surgery within the past few days but clinical correlation is required. Postsurgical changes as noted above. Nonspecific colitis sigmoid colon. No free fluid to suggest bile leak. RECOMMENDATIONS: The findings were sent to the Radiology Results Communication [facility] at 8:56 pm on 04/14/2018to be communicated to a licensed caregiver. D/ / Ej Floyd MD / Ej Floyd MD Interpreting Provider: Ej Floyd MD - Patient Status Disposition: Home, Self-Care Condition: Good Functional capacity at discharge: independent ambulation Overall status at discharge: patient is progressing back to baseline - Discharge Instructions Instructions: Crohn Disease (GEN), Infectious Colitis (GEN) Follow Up With: Elise Moreno CNP [Primary Care Provider] - Ambrosio Gonzalez MD [Partnered Physician] - (2 months for repeat colonoscopy and medication management) Additional Instructions: Take medications as directed. Do not stop any medication without talking to your provider first. Do not drink alcohol while taking Metronidazole. Avoid high-fiber foods Notify the office or return to the hospital for return of symptoms. Follow-up with your PCP for anxiety and insomnia if this continues. - Diet and Activity Activity: increase activity as tolerated Diet: other (Low fiber)
[2018-04-24 13:54] LABS: Saccharomyces cerevisiae IgA 8.3 Units (0.0-24.9)
[2018-04-26 08:00] LABS: Ova & Parasite Stain NEGATIVE (Negative)
== END 2018-04-24 12:37 | disposition home or self-care (01) | DRG 245 ==
LOC: 3ANU
PROVIDERS: ADMIT Surgery; ATTEND Surgery

== ENCOUNTER 2020-06-04 15:06 | Inpatient (IN) ==
[2020-06-04] MEDS ORDERED: Ondansetron 4 MG/2 ML VIAL IVP ONE (15:53)
[2020-06-04] MEDS ORDERED: *HR* FentaNYL (PF) 100 MCG/2 ML VIAL IVP ONE (15:53)
[2020-06-04] MEDS ORDERED: Isovue-370 500 ML BOTTLE IVP ONE (15:53)
[2020-06-04] MEDS ORDERED: 0.9 % Sodium Chloride 1,000 ML IVC ONE ×3 (15:53→21:08)
[2020-06-04] MEDS ORDERED: Piperacillin/Tazobactam 3.375 GM in Water for inj. (sterile) 20 ML IVP ONE (16:21)
[2020-06-04 16:35] LABS: Basophils % 0.3 %; Eosinophils % 0.2 %; Hematocrit 41.8 % (35.3-44.9); Hemoglobin 13.3 g/dL (11.5-15.4); Immature Granulocytes % 0.3 % (0-4); Lymphocytes # 0.8 K/mcL (0.6-4.6); Lymphocytes % 6.3 %; Mean Corpuscular HGB Conc 31.8 g/dL (31.6-35.5); Mean Corpuscular Hemoglobin 27.8 pg (28.0-33.3); Mean Corpuscular Volume 87.3 fL (83.0-100.0); Mean Platelet Volume 9.9 fL (9.4-12.4); Monocytes # 0.8 K/mcL (0.0-1.3); Monocytes % 6.3 %; Neutrophils # 10.3 K/mcL (1.6-8.9); Platelet Count 349 K/mcL (140-400); Red Blood Count 4.79 M/mcL (3.82-4.97); Red Cell Distribution Width 13.4 % (11.5-14.5); Segmented Neutrophils % 86.6 %; White Blood Count 11.9 K/mcL (4.3-11.1)
[2020-06-04 16:53] LABS: Alanine Aminotransferase 8 Units/L (7-52); Albumin 3.5 g/dL (3.5-5.7); Albumin/Globulin Ratio 1.1 (1.1-2.2); Alkaline Phosphatase 64 Units/L (34-104); Amylase 13 Units/L (29-103); Aspartate Amino Transferase 8 Units/L (13-39); BUN/Creatinine Ratio 21 (6-26); Bilirubin,Direct 0.1 mg/dL (0.0-0.2); Bilirubin,Indirect 0.3 mg/dL (0.0-1.0); Bilirubin,Total 0.4 mg/dL (0.3-1.0); Blood Urea Nitrogen 12 mg/dL (6-20); Calcium 8.4 mg/dL (8.6-10.3); Carbon Dioxide 25 mEq/L (23-29); Chloride 100 mEq/L (98-107); Globulin 3.1 g/dL (2.4-3.5); Glucose 122 mg/dL (70-105); Lipase < 3 Units/L (11-82); Osmolality,Calculated 279 (280-300); Potassium 3.9 mEq/L (3.5-5.1); Sodium 134 mEq/L (136-145); Total Protein 6.6 g/dL (6.4-8.9); eGFR For African Americans > 60 (> 60); eGFR For Non-African Americans > 60 (> 60)
[2020-06-04] MEDS ORDERED: Acetaminophen IV 1,000 MG/100 ML BAG IVPB ONE (21:06)
[2020-06-04] MEDS ORDERED: Naloxone 0.4 MG/ML INJ IVP PRN (21:08)
[2020-06-04] MEDS ORDERED: Calcium Gluconate 1gm/50mL 1 GM/50 ML BAG IVPB ONE (21:12)
[2020-06-04] MEDS: Nicotine 14 MG PATCH.TD24 TD SCH (22:20)
[2020-06-05] MEDS: Piperacillin/Tazobactam 3.375 GM in 0.9 % Sodium Chloride Mini Bag 100 ML IVPB SCH ×3 (00:50→16:04)
[2020-06-05 05:39] LABS: Bilirubin,Urine Negative (Negative); Blood,Urine Negative (Negative); Clarity,Urine Clear (Clear); Color,Urine Yellow (Yellow); Glucose,Urine (UA) Normal (Normal); Ketones,Urine 40 mg/dL (Negative); Leukocyte Esterase,Urine Negative (Negative); Nitrite,Urine Negative (Negative); Protein,Urine Negative (Neg-Trace); Specific Gravity,Urine > 1.030 (1.010-1.025); Urobilinogen,Urine Normal (Normal)
[2020-06-05] MEDS: *HR* Heparin 5,000 UNIT/ML VIAL SQ SCH ×2 (06:23→17:45)
[2020-06-05] MEDS: 0.9 % Sodium Chloride 1,000 ML IVC SCH ×3 (06:46→17:46)
[2020-06-05 11:09] LABS: Hematocrit 37.8 % (35.3-44.9); Hemoglobin 11.9 g/dL (11.5-15.4); Mean Corpuscular HGB Conc 31.5 g/dL (31.6-35.5); Mean Corpuscular Hemoglobin 28.1 pg (28.0-33.3); Mean Corpuscular Volume 89.2 fL (83.0-100.0); Platelet Count 300 K/mcL (140-400); Red Blood Count 4.24 M/mcL (3.82-4.97); Red Cell Distribution Width 13.5 % (11.5-14.5); White Blood Count 8.4 K/mcL (4.3-11.1)
[2020-06-05 11:21] LABS: Estimated Average Glucose 137 mg/dl; Hemoglobin A1C 6.4 %
[2020-06-05 11:25] LABS: BUN/Creatinine Ratio 14 (6-26); Blood Urea Nitrogen 6 mg/dL (6-20); Calcium 7.8 mg/dL (8.6-10.3); Carbon Dioxide 24 mEq/L (23-29); Chloride 105 mEq/L (98-107); Glucose 74 mg/dL (70-105); Magnesium 1.8 mg/dL (1.6-2.6); Osmolality,Calculated 280 (280-300); Potassium 3.7 mEq/L (3.5-5.1); Sodium 137 mEq/L (136-145); eGFR For African Americans > 60 (> 60); eGFR For Non-African Americans > 60 (> 60)
[2020-06-05 14:55] LABS: Adenovirus F 40/41 PCR Not detected (Not detect); Astrovirus PCR Not detected (Not detect); C.difficile Toxin A/B Gene PCR Not detected (Not detect); Campylobacter by PCR Not detected (Not detect); Cryptosporidium by PCR Not detected (Not detect); Cyclospora cayetanensis PCR Not detected (Not detect); E. coli O157 by PCR Not detected (Not detect); Entamoeba histolytica PCR Not detected (Not detect); Enteroaggregative E.coli(EAEC) Not detected (Not detect); Enteropathogenic E.coli(EPEC) Not detected (Not detect); Enterotoxigenic E.coli (ETEC) Not detected (Not detect); Giardia lamblia PCR Not detected (Not detect); Norovirus GI/GII PCR Not detected (Not detect); Plesiomonas shigelloides PCR Not detected (Not detect); Rotavirus A PCR Not detected (Not detect); Salmonella PCR Not detected (Not detect); Sapovirus PCR Not detected (Not detect); Shig/EnteroinvasiveE coli EIEC Not detected (Not detect); Shigalike tox-prod E coli STEC Not detected (Not detect); Vibrio PCR Not detected (Not detect); Vibrio cholerae PCR Not detected (Not detect); Yersinia enterocolitica PCR Not detected (Not detect)
[2020-06-05] MEDS: Ondansetron 4 MG/2 ML VIAL IVP PRN (17:50)
[2020-06-05] MEDS: Nicotine 14 MG PATCH.TD24 TD SCH (21:56)
[2020-06-05] MEDS ORDERED: Acetaminophen IV 1,000 MG/100 ML BAG IVPB ONE (22:06)
[2020-06-06] MEDS: Piperacillin/Tazobactam 3.375 GM in 0.9 % Sodium Chloride Mini Bag 100 ML IVPB SCH ×3 (00:23→16:53)
[2020-06-06 03:45] LABS: Hematocrit 37.6 % (35.3-44.9); Hemoglobin 11.9 g/dL (11.5-15.4); Mean Corpuscular HGB Conc 31.6 g/dL (31.6-35.5); Mean Corpuscular Hemoglobin 28.4 pg (28.0-33.3); Mean Corpuscular Volume 89.7 fL (83.0-100.0); Platelet Count 312 K/mcL (140-400); Red Blood Count 4.19 M/mcL (3.82-4.97); Red Cell Distribution Width 13.4 % (11.5-14.5); White Blood Count 8.7 K/mcL (4.3-11.1)
[2020-06-06 03:54] LABS: BUN/Creatinine Ratio 13 (6-26); Blood Urea Nitrogen 6 mg/dL (6-20); Calcium 7.8 mg/dL (8.6-10.3); Carbon Dioxide 20 mEq/L (23-29); Chloride 103 mEq/L (98-107); Glucose 61 mg/dL (70-105); Osmolality,Calculated 278 (280-300); Potassium 3.6 mEq/L (3.5-5.1); Sodium 136 mEq/L (136-145); eGFR For African Americans > 60 (> 60); eGFR For Non-African Americans > 60 (> 60)
[2020-06-06] MEDS: *HR* Heparin 5,000 UNIT/ML VIAL SQ SCH ×2 (05:25→17:12)
[2020-06-06] MEDS ORDERED: Acetaminophen IV 1,000 MG/100 ML BAG IVPB ONE ×2 (05:27→20:51)
[2020-06-06] MEDS: D5% in 0.9% NACL 1,000 ML IVC SCH (12:38)
[2020-06-06] MEDS: Calcium Gluconate 1gm/50mL 1 GM/50 ML BAG IVPB SCH ×2 (14:04→15:44)
[2020-06-06] MEDS: Ondansetron 4 MG/2 ML VIAL IVP PRN (17:11)
[2020-06-06] MEDS: Nicotine 14 MG PATCH.TD24 TD SCH (22:01)
[2020-06-07] MEDS: Piperacillin/Tazobactam 3.375 GM in 0.9 % Sodium Chloride Mini Bag 100 ML IVPB SCH ×3 (00:06→16:56)
[2020-06-07] MEDS: D5% in 0.9% NACL 1,000 ML IVC SCH ×2 (04:15→17:11)
[2020-06-07] MEDS: *HR* Heparin 5,000 UNIT/ML VIAL SQ SCH ×2 (05:56→16:56)
[2020-06-07] MEDS ORDERED: Acetaminophen IV 500 MG/50 ML BAG IVPB ONE (16:56)
[2020-06-07] MEDS: Ondansetron 4 MG/2 ML VIAL IVP PRN (17:02)
[2020-06-07] MEDS: metroNIDAZOLE 500 MG TABLET PO SCH (22:39)
[2020-06-07] MEDS: Nicotine 14 MG PATCH.TD24 TD SCH (22:40)
[2020-06-08] MEDS: Piperacillin/Tazobactam 3.375 GM in 0.9 % Sodium Chloride Mini Bag 100 ML IVPB SCH ×4 (00:58→21:09)
[2020-06-08] MEDS: metroNIDAZOLE 500 MG TABLET PO SCH ×3 (00:59→08:18)
[2020-06-08] MEDS: Nicotine 14 MG PATCH.TD24 TD SCH ×2 (00:59→21:09)
[2020-06-08] MEDS: Ondansetron 4 MG/2 ML VIAL IVP PRN ×2 (01:10→07:51)
[2020-06-08] MEDS ORDERED: Ketorolac 30 MG/ML VIAL IVP ONE (01:24)
[2020-06-08] MEDS: *HR* Heparin 5,000 UNIT/ML VIAL SQ SCH ×2 (05:02→18:23)
[2020-06-08] MEDS ORDERED: *HR* Dextrose 50 % in Water (Vial) 50 ML VIAL IVP PRN ×2 (05:38→12:14)
[2020-06-08] MEDS ORDERED: D5% in Water 1,000 ML IVC PRN ×2 (05:38→12:14)
[2020-06-08] MEDS ORDERED: Dextrose Gel 15 GM/37.5 ML TUBE PO PRN ×4 (05:38→12:14)
[2020-06-08 05:45] LABS: Hematocrit 36.1 % (35.3-44.9); Hemoglobin 11.4 g/dL (11.5-15.4); Mean Corpuscular HGB Conc 31.6 g/dL (31.6-35.5); Mean Corpuscular Hemoglobin 27.4 pg (28.0-33.3); Mean Corpuscular Volume 86.8 fL (83.0-100.0); Mean Platelet Volume 9.7 fL (9.4-12.4); Monocytes # 1.1 K/mcL (0.0-1.3); Platelet Count 310 K/mcL (140-400); Red Blood Count 4.16 M/mcL (3.82-4.97); Red Cell Distribution Width 13.3 % (11.5-14.5); White Blood Count 9.1 K/mcL (4.3-11.1)
[2020-06-08 06:11] LABS: BUN/Creatinine Ratio 5 (6-26); Blood Urea Nitrogen 3 mg/dL (6-20); Calcium 7.7 mg/dL (8.6-10.3); Carbon Dioxide 25 mEq/L (23-29); Chloride 100 mEq/L (98-107); Glucose 248 mg/dL (70-105); Magnesium 1.5 mg/dL (1.6-2.6); Osmolality,Calculated 285 (280-300); Potassium 2.6 mEq/L (3.5-5.1); Sodium 135 mEq/L (136-145); eGFR For African Americans > 60 (> 60); eGFR For Non-African Americans > 60 (> 60)
[2020-06-08] MEDS ORDERED: Potassium Phosphate 44 MEQ in 0.9 % Sodium Chloride 250 ML IVPB ONE ×2 (06:19→13:00)
[2020-06-08] MEDS: Insulin LISPRO 300 UNITS/3 ML VIAL SUBQ SCH ×4 (06:25→23:42)
[2020-06-08] MEDS: D5% in 0.9% NACL 1,000 ML IVC SCH (06:26)
[2020-06-08 06:29] LABS: Adenovirus Not Detected (Not Detect); Bordetella Pertussis Not Detected (Not Detect); Chlamydophila pneumoniae Not Detected (Not Detect); Coronavirus 229E Not Detected (Not Detect); Coronavirus HKU1 Not Detected (Not Detect); Coronavirus NL63 Not Detected (Not Detect); Coronavirus OC43 Not Detected (Not Detect); Human Metapneumovirus Not Detected (Not Detect); Human Rhinovirus/Enterovirus Not Detected (Not Detect); Influenza A Subtype 2009 H1 Not Detected (Not Detect); Influenza B Not Detected (Not Detect); Mycoplasma pneumoniae Not Detected (Not Detect); Parainfluenza Virus 1 Not Detected (Not Detect); Parainfluenza Virus 2 Not Detected (Not Detect); Parainfluenza Virus 3 Not Detected (Not Detect); Parainfluenza Virus 4 Not Detected (Not Detect); Respiratory Syncytial Virus Not Detected (Not Detect); SARS-CoV-2 Not Detected (Not Detect)
[2020-06-08 06:54] LABS: Neutrophils # 5.6 K/mcL (1.6-8.9); Platelet Estimate Normal (Normal); Reactive Lymphocytes Present (Not Present)
[2020-06-08] MEDS ORDERED: *HR* FentaNYL (PF) 100 MCG/2 ML VIAL ONE (07:09)
[2020-06-08] MEDS ORDERED: *HR* Midazolam HCl 2 MG/2 ML VIAL ONE (07:09)
[2020-06-08] MEDS ORDERED: *HR* Propofol 200 MG/20 ML VIAL IVP ONE (07:09)
[2020-06-08] MEDS ORDERED: Lidocaine HCL 4 ML Topical Solution (Laryng-O-Jet Kit Sterile Pak) TP ONE ×2 (07:11→07:14)
[2020-06-08] MEDS ORDERED: *HR* Succinylcholine 200 MG/10 ML VIAL IVP ONE (07:14)
[2020-06-08] MEDS ORDERED: *HR* Rocuronium Bromide 50 MG/5 ML VIAL ONE (07:14)
[2020-06-08] MEDS ORDERED: Lidocaine -MPF 2% 2 ML VIAL ONE (07:14)
[2020-06-08] MEDS ORDERED: Ondansetron 4 MG/2 ML VIAL ONE (07:14)
[2020-06-08] MEDS ORDERED: Scopolamine Patch 1.5 MG PATCH.TD72 ONE (08:02)
[2020-06-08] MEDS ORDERED: *HR* HYDROMORPHONE 2 MG/ML VIAL ONE (09:04)
[2020-06-08] MEDS ORDERED: Naloxone 0.4 MG/ML INJ IVP PRN (12:14)
[2020-06-08] MEDS ORDERED: Morphine PCA 30 MG/ 30 ML 30 ML PCA.VIAL IVC PRN (12:14)
[2020-06-08] MEDS ORDERED: Ondansetron 4 MG/2 ML VIAL IVP PRN (12:14)
[2020-06-08] MEDS: Acetaminophen IV 1,000 MG/100 ML BAG IVPB SCH ×3 (13:51→23:34)
[2020-06-08] MEDS: Ketorolac 15 MG/ML VIAL IVP SCH ×3 (13:55→23:34)
[2020-06-08] MEDS: 0.9 % Sodium Chloride 1,000 ML IVC SCH ×2 (13:55→21:08)
[2020-06-08] MEDS ORDERED: Chloraseptic Spray 177 ML BOTTLE MM PRN (18:25)
[2020-06-09 03:36] LABS: Hematocrit 33.3 % (35.3-44.9); Hemoglobin 10.8 g/dL (11.5-15.4); Mean Corpuscular HGB Conc 32.4 g/dL (31.6-35.5); Mean Corpuscular Hemoglobin 27.8 pg (28.0-33.3); Mean Corpuscular Volume 85.8 fL (83.0-100.0); Mean Platelet Volume 10.2 fL (9.4-12.4); Platelet Count 305 K/mcL (140-400); Red Blood Count 3.88 M/mcL (3.82-4.97); Red Cell Distribution Width 13.4 % (11.5-14.5); White Blood Count 11.7 K/mcL (4.3-11.1)
[2020-06-09 04:04] LABS: BUN/Creatinine Ratio 11 (6-26); Blood Urea Nitrogen 4 mg/dL (6-20); Calcium 7.1 mg/dL (8.6-10.3); Carbon Dioxide 28 mEq/L (23-29); Chloride 106 mEq/L (98-107); Glucose 103 mg/dL (70-105); Magnesium 1.7 mg/dL (1.6-2.6); Osmolality,Calculated 285 (280-300); Phosphorous 2.8 mg/dL (2.7-4.5); Potassium 3.9 mEq/L (3.5-5.1); Sodium 139 mEq/L (136-145); eGFR For African Americans > 60 (> 60); eGFR For Non-African Americans > 60 (> 60)
[2020-06-09 04:06] LABS: Lymphocytes # 1.2 K/mcL (0.6-4.6); Monocytes # 0.9 K/mcL (0.0-1.3); Neutrophils # 9.6 K/mcL (1.6-8.9); Platelet Estimate Normal (Normal); Toxic Granulation Present (Not Present)
[2020-06-09] MEDS: *HR* Heparin 5,000 UNIT/ML VIAL SQ SCH ×2 (05:28→17:45)
[2020-06-09] MEDS: Ketorolac 15 MG/ML VIAL IVP SCH ×3 (05:28→17:45)
[2020-06-09] MEDS: 0.9 % Sodium Chloride 1,000 ML IVC SCH ×3 (05:28→21:41)
[2020-06-09] MEDS: Acetaminophen IV 1,000 MG/100 ML BAG IVPB SCH ×3 (05:29→17:46)
[2020-06-09] MEDS: Piperacillin/Tazobactam 3.375 GM in 0.9 % Sodium Chloride Mini Bag 100 ML IVPB SCH ×3 (05:29→21:40)
[2020-06-09] MEDS: Insulin LISPRO 300 UNITS/3 ML VIAL SUBQ SCH ×3 (05:40→17:37)
[2020-06-09] MEDS: Pantoprazole 40 MG VIAL IVP SCH (08:24)
[2020-06-09] MEDS: Nicotine 14 MG PATCH.TD24 TD SCH (21:40)
[2020-06-10] MEDS: Insulin LISPRO 300 UNITS/3 ML VIAL SUBQ SCH ×3 (00:13→12:23)
[2020-06-10] MEDS: Ketorolac 15 MG/ML VIAL IVP SCH ×4 (00:57→18:13)
[2020-06-10] MEDS: Acetaminophen IV 1,000 MG/100 ML BAG IVPB SCH ×4 (00:58→18:12)
[2020-06-10] MEDS ORDERED: Saliva Stimulant 44.3ml BOTTLE PO PRN (01:16)
[2020-06-10] MEDS: Piperacillin/Tazobactam 3.375 GM in 0.9 % Sodium Chloride Mini Bag 100 ML IVPB SCH ×2 (05:34→12:26)
[2020-06-10] MEDS: *HR* Heparin 5,000 UNIT/ML VIAL SQ SCH ×2 (05:34→18:11)
[2020-06-10] MEDS: 0.9 % Sodium Chloride 1,000 ML IVC SCH ×3 (05:35→18:13)
[2020-06-10 06:18] LABS: Basophils % 0.2 %; Eosinophils # 0.1 K/mcL (0.0-0.6); Eosinophils % 0.7 %; Hematocrit 31.7 % (35.3-44.9); Immature Granulocytes % 0.6 % (0-4); Lymphocytes # 1.4 K/mcL (0.6-4.6); Lymphocytes % 8.5 %; Mean Corpuscular HGB Conc 31.5 g/dL (31.6-35.5); Mean Corpuscular Hemoglobin 28.2 pg (28.0-33.3); Mean Corpuscular Volume 89.5 fL (83.0-100.0); Mean Platelet Volume 10.1 fL (9.4-12.4); Monocytes # 0.9 K/mcL (0.0-1.3); Monocytes % 5.8 %; Neutrophils # 13.3 K/mcL (1.6-8.9); Platelet Count 338 K/mcL (140-400); Red Blood Count 3.54 M/mcL (3.82-4.97); Red Cell Distribution Width 13.8 % (11.5-14.5); Segmented Neutrophils % 84.2 %; White Blood Count 15.8 K/mcL (4.3-11.1)
[2020-06-10 06:37] LABS: BUN/Creatinine Ratio 13 (6-26); Blood Urea Nitrogen 5 mg/dL (6-20); Calcium 7.4 mg/dL (8.6-10.3); Carbon Dioxide 24 mEq/L (23-29); Chloride 107 mEq/L (98-107); Glucose 75 mg/dL (70-105); Magnesium 1.8 mg/dL (1.6-2.6); Osmolality,Calculated 284 (280-300); Phosphorous 1.8 mg/dL (2.7-4.5); Potassium 3.4 mEq/L (3.5-5.1); Sodium 139 mEq/L (136-145); eGFR For African Americans > 60 (> 60); eGFR For Non-African Americans > 60 (> 60)
[2020-06-10] MEDS: Pantoprazole 40 MG VIAL IVP SCH (07:46)
[2020-06-10 14:14] LABS: Bilirubin,Urine Negative (Negative); Blood,Urine Trace (Negative); Clarity,Urine Clear (Clear); Color,Urine Light-Yellow (Yellow); Glucose,Urine (UA) Normal (Normal); Ketones,Urine >150 mg/dL (Negative); Leukocyte Esterase,Urine Negative (Negative); Mucus,Urine Few per lpf (None-Few); Nitrite,Urine Negative (Negative); Protein,Urine Trace mg/dL (Neg-Trace); Specific Gravity,Urine 1.028 (1.010-1.025); Squamous Epithelial Cell,Urine Few per hpf (None-Few); Urobilinogen,Urine Normal (Normal)
[2020-06-11] MEDS: Ketorolac 15 MG/ML VIAL IVP SCH ×5 (00:01→23:16)
[2020-06-11] MEDS: Piperacillin/Tazobactam 3.375 GM in 0.9 % Sodium Chloride Mini Bag 100 ML IVPB SCH ×4 (00:02→21:57)
[2020-06-11] MEDS: Nicotine 14 MG PATCH.TD24 TD SCH ×2 (00:10→21:57)
[2020-06-11 05:39] LABS: Basophils % 0.2 %; Eosinophils # 0.1 K/mcL (0.0-0.6); Eosinophils % 0.7 %; Hematocrit 29.3 % (35.3-44.9); Hemoglobin 9.5 g/dL (11.5-15.4); Immature Granulocytes % 0.5 % (0-4); Lymphocytes # 1.1 K/mcL (0.6-4.6); Lymphocytes % 7.5 %; Mean Corpuscular HGB Conc 32.4 g/dL (31.6-35.5); Mean Corpuscular Hemoglobin 28.3 pg (28.0-33.3); Mean Corpuscular Volume 87.2 fL (83.0-100.0); Mean Platelet Volume 9.8 fL (9.4-12.4); Monocytes % 6.6 %; Neutrophils # 12.3 K/mcL (1.6-8.9); Platelet Count 343 K/mcL (140-400); Red Blood Count 3.36 M/mcL (3.82-4.97); Red Cell Distribution Width 13.9 % (11.5-14.5); Segmented Neutrophils % 84.5 %; White Blood Count 14.6 K/mcL (4.3-11.1)
[2020-06-11] MEDS: Acetaminophen IV 1,000 MG/100 ML BAG IVPB SCH ×5 (05:46→23:15)
[2020-06-11] MEDS: *HR* Heparin 5,000 UNIT/ML VIAL SQ SCH (05:47)
[2020-06-11 05:58] LABS: BUN/Creatinine Ratio 9 (6-26); Blood Urea Nitrogen 3 mg/dL (6-20); Calcium 7.4 mg/dL (8.6-10.3); Carbon Dioxide 28 mEq/L (23-29); Chloride 103 mEq/L (98-107); Glucose 93 mg/dL (70-105); Magnesium 1.8 mg/dL (1.6-2.6); Osmolality,Calculated 282 (280-300); Phosphorous 2.2 mg/dL (2.7-4.5); Sodium 138 mEq/L (136-145); eGFR For African Americans > 60 (> 60); eGFR For Non-African Americans > 60 (> 60)
[2020-06-11] MEDS ORDERED: Potassium Phosphate 44 MEQ in 0.9 % Sodium Chloride 250 ML IVPB ONE (07:39)
[2020-06-11] MEDS: 0.9 % Sodium Chloride 1,000 ML IVC SCH (09:13)
[2020-06-12] MEDS: Acetaminophen IV 1,000 MG/100 ML BAG IVPB SCH ×2 (05:45→11:57)
[2020-06-12] MEDS: Piperacillin/Tazobactam 3.375 GM in 0.9 % Sodium Chloride Mini Bag 100 ML IVPB SCH (05:46)
[2020-06-12] MEDS: Ketorolac 15 MG/ML VIAL IVP SCH ×2 (05:46→11:55)
[2020-06-12 07:19] LABS: Basophils % 0.2 %; Eosinophils # 0.2 K/mcL (0.0-0.6); Eosinophils % 1.4 %; Hematocrit 30.7 % (35.3-44.9); Hemoglobin 9.8 g/dL (11.5-15.4); Immature Granulocytes % 0.6 % (0-4); Lymphocytes # 1.1 K/mcL (0.6-4.6); Lymphocytes % 10.4 %; Mean Corpuscular HGB Conc 31.9 g/dL (31.6-35.5); Mean Corpuscular Hemoglobin 27.3 pg (28.0-33.3); Mean Corpuscular Volume 85.5 fL (83.0-100.0); Mean Platelet Volume 9.9 fL (9.4-12.4); Monocytes # 0.9 K/mcL (0.0-1.3); Monocytes % 8.5 %; Neutrophils # 8.5 K/mcL (1.6-8.9); Platelet Count 411 K/mcL (140-400); Red Blood Count 3.59 M/mcL (3.82-4.97); Red Cell Distribution Width 13.7 % (11.5-14.5); Segmented Neutrophils % 78.9 %; White Blood Count 10.7 K/mcL (4.3-11.1)
[2020-06-12 07:36] LABS: BUN/Creatinine Ratio 6 (6-26); Blood Urea Nitrogen 2 mg/dL (6-20); Calcium 7.8 mg/dL (8.6-10.3); Carbon Dioxide 30 mEq/L (23-29); Chloride 100 mEq/L (98-107); Glucose 98 mg/dL (70-105); Magnesium 1.8 mg/dL (1.6-2.6); Osmolality,Calculated 280 (280-300); Phosphorous 2.4 mg/dL (2.7-4.5); Potassium 3.3 mEq/L (3.5-5.1); Sodium 137 mEq/L (136-145); eGFR For African Americans > 60 (> 60); eGFR For Non-African Americans > 60 (> 60)
[2020-06-12 11:34] VITALS: BP 108/70
== END 2020-06-12 14:19 | disposition home or self-care (01) | DRG 231 ==
LOC: EMEROOARM 15:06 → 3ANU 15:06 → SUATTDRO 06-05 14:57
PROVIDERS: ADMIT Family Medicine; ATTEND Internal Medicine

== ENCOUNTER 2021-01-02 13:25 | Inpatient (IN) ==
[2021-01-02] MEDS ORDERED: cefOXitin 2,000 MG in Water for inj. (sterile) 10 ML IVP ONE (13:41)
[2021-01-02] MEDS ORDERED: *HR* HYDROmorphone PF 0.5 MG/0.5 ML SYRINGE IVP PRN (13:42)
[2021-01-02] MEDS ORDERED: Acetaminophen IV 1,000 MG/100 ML BAG IVPB ONE (13:43)
[2021-01-02] MEDS ORDERED: *HR* Midazolam HCl 2 MG/2 ML VIAL ONE (14:11)
[2021-01-02] MEDS ORDERED: *HR* FentaNYL (PF) 100 MCG/2 ML VIAL ONE (14:11)
[2021-01-02] MEDS ORDERED: Ondansetron 4 MG/2 ML VIAL ONE (14:11)
[2021-01-02] MEDS ORDERED: *HR* Rocuronium Bromide 50 MG/5 ML VIAL ONE ×2 (14:11→17:12)
[2021-01-02] MEDS ORDERED: *HR* Propofol 200 MG/20 ML VIAL IVP ONE (14:11)
[2021-01-02] MEDS ORDERED: *HR* Succinylcholine 200 MG/10 ML VIAL IVP ONE (14:12)
[2021-01-02] MEDS: Ringers Solution, Lactated 1,000 ML IVC SCH ×2 (14:14→14:30)
[2021-01-02] MEDS ORDERED: *HR* Magnesium Sulfate 1 GM/2 ML VIAL ONE (14:18)
[2021-01-02] MEDS ORDERED: *HR* HYDROMORPHONE 2 MG/ML VIAL ONE (16:52)
[2021-01-02] MEDS ORDERED: Albumin Human 5% 12.5 GM/250 ML IV.SOLN ONE (17:14)
[2021-01-02] MEDS ORDERED: Sugammadex Sodium 200 MG/2 ML VIAL IV ONE (20:03)
[2021-01-02] MEDS ORDERED: Piperacillin/Tazobactam 3.375 GM in 0.9 % Sodium Chloride Mini Bag 100 ML IVPB ONE (20:27)
[2021-01-02] MEDS ORDERED: *HR* FentaNYL (PF) 100 MCG/2 ML VIAL IVP PRN (22:19)
[2021-01-02] MEDS ORDERED: Naloxone 0.4 MG/ML INJ IVP PRN (22:19)
[2021-01-02] MEDS ORDERED: *HR* Metoprolol 5 MG/5 ML VIAL IVP PRN (22:19)
[2021-01-02] MEDS: Nicotine 7 MG PATCH.TD24 TD SCH (23:12)
[2021-01-02] MEDS: Piperacillin/Tazobactam 3.375 GM in 0.9 % Sodium Chloride Mini Bag 100 ML IVPB SCH (23:12)
[2021-01-02] MEDS: 0.9 % Sodium Chloride 1,000 ML IVC SCH (23:13)
[2021-01-03 07:16] LABS: Basophils % 0.1 %; Hematocrit 34.1 % (35.3-44.9); Hemoglobin 10.3 g/dL (11.5-15.4); Immature Granulocytes % 0.4 % (0-4); Lymphocytes % 5.1 %; Mean Corpuscular HGB Conc 30.2 g/dL (31.6-35.5); Mean Corpuscular Hemoglobin 27.8 pg (28.0-33.3); Mean Corpuscular Volume 91.9 fL (83.0-100.0); Mean Platelet Volume 10.2 fL (9.4-12.4); Monocytes # 1.4 K/mcL (0.0-1.3); Monocytes % 6.7 %; Neutrophils # 17.8 K/mcL (1.6-8.9); Platelet Count 262 K/mcL (140-400); Red Blood Count 3.71 M/mcL (3.82-4.97); Red Cell Distribution Width 14.9 % (11.5-14.5); Segmented Neutrophils % 87.7 %; White Blood Count 20.3 K/mcL (4.3-11.1)
[2021-01-03] MEDS: Piperacillin/Tazobactam 3.375 GM in 0.9 % Sodium Chloride Mini Bag 100 ML IVPB SCH ×3 (07:29→23:45)
[2021-01-03] MEDS: 0.9 % Sodium Chloride 1,000 ML IVC SCH ×2 (07:33→18:11)
[2021-01-03 07:40] LABS: BUN/Creatinine Ratio 20 (6-26); Blood Urea Nitrogen 10 mg/dL (8-23); Calcium 7.6 mg/dL (8.6-10.3); Carbon Dioxide 24 mEq/L (23-29); Chloride 111 mEq/L (98-107); Glucose 134 mg/dL (70-105); Magnesium 2.2 mg/dL (1.6-2.6); Osmolality,Calculated 293 (280-300); Phosphorous 3.6 mg/dL (2.7-4.5); Sodium 141 mEq/L (136-145); eGFR For African Americans > 60 (> 60); eGFR For Non-African Americans > 60 (> 60)
[2021-01-03] MEDS: Acetaminophen IV 1,000 MG/100 ML BAG IVPB SCH ×3 (09:13→20:01)
[2021-01-03] MEDS: Pantoprazole 40 MG VIAL IVP SCH (09:13)
[2021-01-03] MEDS: Ipratropium/Albuterol Neb 3 ML IH SCH ×3 (10:39→23:15)
[2021-01-03] MEDS: Acetylcysteine 10% 2 ML INHSOL IH SCH ×3 (10:39→23:15)
[2021-01-03] MEDS: Ketorolac 30 MG/ML VIAL IVP SCH ×3 (11:53→23:45)
[2021-01-03] MEDS ORDERED: Lidocaine Viscous Oral Soln 15 ML SOLUTION MM PRN (13:20)
[2021-01-03] MEDS ORDERED: Chloraseptic Spray 177 ML BOTTLE MM PRN (13:20)
[2021-01-03] MEDS: *HR* Heparin 5,000 UNIT/ML VIAL SQ SCH (16:57)
[2021-01-03] MEDS: Ondansetron 4 MG/2 ML VIAL IVP PRN (20:01)
[2021-01-03] MEDS: Nicotine 7 MG PATCH.TD24 TD SCH (23:28)
[2021-01-04 02:52] LABS: Basophils % 0.3 %; Eosinophils # 0.1 K/mcL (0.0-0.6); Eosinophils % 0.9 %; Hematocrit 31.9 % (35.3-44.9); Hemoglobin 9.5 g/dL (11.5-15.4); Immature Granulocytes % 0.3 % (0-4); Lymphocytes % 8.5 %; Mean Corpuscular HGB Conc 29.8 g/dL (31.6-35.5); Mean Corpuscular Hemoglobin 27.7 pg (28.0-33.3); Mean Platelet Volume 10.5 fL (9.4-12.4); Monocytes # 0.7 K/mcL (0.0-1.3); Neutrophils # 9.6 K/mcL (1.6-8.9); Platelet Count 236 K/mcL (140-400); Red Blood Count 3.43 M/mcL (3.82-4.97); Red Cell Distribution Width 15.6 % (11.5-14.5); White Blood Count 11.5 K/mcL (4.3-11.1)
[2021-01-04 02:57] LABS: Blood Urea Nitrogen 10 mg/dL (8-23); Calcium 7.2 mg/dL (8.6-10.3); Carbon Dioxide 24 mEq/L (23-29); Chloride 112 mEq/L (98-107); Glucose 112 mg/dL (70-105); Magnesium 2.2 mg/dL (1.6-2.6); Osmolality,Calculated 292 (280-300); Phosphorous 1.9 mg/dL (2.7-4.5); Potassium 3.5 mEq/L (3.5-5.1); Sodium 141 mEq/L (136-145)
[2021-01-04 03:38] LABS: BUN/Creatinine Ratio 22 (6-26); eGFR For African Americans > 60 (> 60); eGFR For Non-African Americans > 60 (> 60)
[2021-01-04] MEDS: 0.9 % Sodium Chloride 1,000 ML IVC SCH ×2 (04:35→10:20)
[2021-01-04] MEDS: Acetaminophen IV 1,000 MG/100 ML BAG IVPB SCH ×5 (05:02→20:59)
[2021-01-04] MEDS: *HR* Heparin 5,000 UNIT/ML VIAL SQ SCH ×2 (06:00→18:15)
[2021-01-04] MEDS: Ketorolac 30 MG/ML VIAL IVP SCH ×3 (06:05→18:16)
[2021-01-04] MEDS: Ipratropium/Albuterol Neb 3 ML IH SCH ×2 (07:25→15:48)
[2021-01-04] MEDS: Acetylcysteine 10% 2 ML INHSOL IH SCH ×2 (07:25→15:48)
[2021-01-04] MEDS ORDERED: Potassium Phosphate 44 MEQ in 0.9 % Sodium Chloride 250 ML IVPB ONE (07:27)
[2021-01-04] MEDS: Pantoprazole 40 MG VIAL IVP SCH (07:58)
[2021-01-04] MEDS: Piperacillin/Tazobactam 3.375 GM in 0.9 % Sodium Chloride Mini Bag 100 ML IVPB SCH ×2 (08:01→18:38)
[2021-01-04] MEDS: D5% in 0.45% NACL w KCl 20 MEQ/1,000 ML MLS IVC SCH ×2 (10:24→15:29)
[2021-01-04] MEDS: *HR* LORazepam 2 MG/ML VIAL IVP PRN ×2 (12:57→22:05)
[2021-01-05] MEDS: Ketorolac 30 MG/ML VIAL IVP SCH ×5 (00:05→23:05)
[2021-01-05] MEDS: D5% in 0.45% NACL w KCl 20 MEQ/1,000 ML MLS IVC SCH ×2 (04:12→16:43)
[2021-01-05 04:36] LABS: Basophils % 0.3 %; Eosinophils # 0.3 K/mcL (0.0-0.6); Eosinophils % 2.7 %; Hematocrit 30.9 % (35.3-44.9); Hemoglobin 9.6 g/dL (11.5-15.4); Immature Granulocytes % 0.2 % (0-4); Lymphocytes # 0.7 K/mcL (0.6-4.6); Lymphocytes % 6.5 %; Mean Corpuscular HGB Conc 31.1 g/dL (31.6-35.5); Mean Corpuscular Hemoglobin 28.4 pg (28.0-33.3); Mean Corpuscular Volume 91.4 fL (83.0-100.0); Mean Platelet Volume 10.2 fL (9.4-12.4); Monocytes # 0.7 K/mcL (0.0-1.3); Monocytes % 6.7 %; Neutrophils # 8.6 K/mcL (1.6-8.9); Platelet Count 225 K/mcL (140-400); Red Blood Count 3.38 M/mcL (3.82-4.97); Red Cell Distribution Width 15.2 % (11.5-14.5); Segmented Neutrophils % 83.6 %; White Blood Count 10.3 K/mcL (4.3-11.1)
[2021-01-05 04:55] LABS: BUN/Creatinine Ratio 12 (6-26); Blood Urea Nitrogen 4 mg/dL (8-23); Calcium 7.6 mg/dL (8.6-10.3); Carbon Dioxide 27 mEq/L (23-29); Chloride 104 mEq/L (98-107); Glucose 109 mg/dL (70-105); Magnesium 1.9 mg/dL (1.6-2.6); Osmolality,Calculated 281 (280-300); Phosphorous 1.5 mg/dL (2.7-4.5); Potassium 3.6 mEq/L (3.5-5.1); Sodium 137 mEq/L (136-145); eGFR For African Americans > 60 (> 60); eGFR For Non-African Americans > 60 (> 60)
[2021-01-05] MEDS: *HR* Heparin 5,000 UNIT/ML VIAL SQ SCH ×2 (06:33→16:56)
[2021-01-05] MEDS: Nicotine 7 MG PATCH.TD24 TD SCH ×2 (06:41→23:06)
[2021-01-05] MEDS: Piperacillin/Tazobactam 3.375 GM in 0.9 % Sodium Chloride Mini Bag 100 ML IVPB SCH ×4 (07:08→23:06)
[2021-01-05] MEDS: Acetaminophen IV 1,000 MG/100 ML BAG IVPB SCH ×4 (07:09→20:10)
[2021-01-05] MEDS: Pantoprazole 40 MG VIAL IVP SCH (10:07)
[2021-01-05] MEDS ORDERED: Potassium Phosphate 44 MEQ in 0.9 % Sodium Chloride 250 ML IVPB ONE (11:11)
[2021-01-05] MEDS: *HR* LORazepam 2 MG/ML VIAL IVP PRN (23:05)
[2021-01-06 01:11] LABS: Basophils % 0.4 %; Eosinophils # 0.4 K/mcL (0.0-0.6); Eosinophils % 5.2 %; Hematocrit 32.1 % (35.3-44.9); Hemoglobin 9.8 g/dL (11.5-15.4); Immature Granulocytes % 0.1 % (0-4); Lymphocytes # 0.8 K/mcL (0.6-4.6); Lymphocytes % 9.7 %; Mean Corpuscular HGB Conc 30.5 g/dL (31.6-35.5); Mean Corpuscular Volume 91.7 fL (83.0-100.0); Mean Platelet Volume 10.3 fL (9.4-12.4); Monocytes # 0.4 K/mcL (0.0-1.3); Monocytes % 4.7 %; Neutrophils # 6.2 K/mcL (1.6-8.9); Platelet Count 233 K/mcL (140-400); Red Cell Distribution Width 14.9 % (11.5-14.5); Segmented Neutrophils % 79.9 %; White Blood Count 7.8 K/mcL (4.3-11.1)
[2021-01-06 01:28] LABS: BUN/Creatinine Ratio 9 (6-26); Blood Urea Nitrogen 3 mg/dL (8-23); Calcium 7.7 mg/dL (8.6-10.3); Carbon Dioxide 27 mEq/L (23-29); Chloride 107 mEq/L (98-107); Glucose 115 mg/dL (70-105); Osmolality,Calculated 285 (280-300); Phosphorous 2.2 mg/dL (2.7-4.5); Potassium 3.6 mEq/L (3.5-5.1); Sodium 139 mEq/L (136-145); eGFR For African Americans > 60 (> 60); eGFR For Non-African Americans > 60 (> 60)
[2021-01-06] MEDS: Acetaminophen IV 1,000 MG/100 ML BAG IVPB SCH ×4 (03:18→20:19)
[2021-01-06] MEDS: *HR* Heparin 5,000 UNIT/ML VIAL SQ SCH ×2 (05:34→16:55)
[2021-01-06] MEDS: Ketorolac 30 MG/ML VIAL IVP SCH ×4 (05:34→23:09)
[2021-01-06] MEDS: D5% in 0.45% NACL w KCl 20 MEQ/1,000 ML MLS IVC SCH ×3 (05:40→23:21)
[2021-01-06] MEDS: Piperacillin/Tazobactam 3.375 GM in 0.9 % Sodium Chloride Mini Bag 100 ML IVPB SCH ×3 (09:27→23:09)
[2021-01-06] MEDS: Pantoprazole 40 MG VIAL IVP SCH (09:32)
[2021-01-06] MEDS ORDERED: Potassium Phosphate 44 MEQ in 0.9 % Sodium Chloride 250 ML IVPB ONE (09:57)
[2021-01-06] MEDS: Ondansetron 4 MG/2 ML VIAL IVP PRN (17:10)
[2021-01-06] MEDS: Nicotine 7 MG PATCH.TD24 TD SCH (23:08)
[2021-01-07 02:39] LABS: Basophils % 0.4 %; Eosinophils # 0.4 K/mcL (0.0-0.6); Eosinophils % 4.8 %; Hematocrit 31.2 % (35.3-44.9); Hemoglobin 9.9 g/dL (11.5-15.4); Immature Granulocytes % 0.3 % (0-4); Lymphocytes % 13.1 %; Mean Corpuscular HGB Conc 31.7 g/dL (31.6-35.5); Mean Corpuscular Hemoglobin 28.9 pg (28.0-33.3); Mean Platelet Volume 10.2 fL (9.4-12.4); Monocytes # 0.5 K/mcL (0.0-1.3); Monocytes % 6.9 %; Neutrophils # 5.7 K/mcL (1.6-8.9); Platelet Count 254 K/mcL (140-400); Red Blood Count 3.43 M/mcL (3.82-4.97); Red Cell Distribution Width 14.8 % (11.5-14.5); Segmented Neutrophils % 74.5 %; White Blood Count 7.6 K/mcL (4.3-11.1)
[2021-01-07 02:58] LABS: BUN/Creatinine Ratio 8 (6-26); Blood Urea Nitrogen 3 mg/dL (8-23); Calcium 8.2 mg/dL (8.6-10.3); Carbon Dioxide 25 mEq/L (23-29); Chloride 108 mEq/L (98-107); Glucose 97 mg/dL (70-105); Magnesium 1.9 mg/dL (1.6-2.6); Osmolality,Calculated 284 (280-300); Phosphorous 3.3 mg/dL (2.7-4.5); Potassium 3.8 mEq/L (3.5-5.1); Sodium 139 mEq/L (136-145); eGFR For African Americans > 60 (> 60); eGFR For Non-African Americans > 60 (> 60)
[2021-01-07] MEDS: Acetaminophen IV 1,000 MG/100 ML BAG IVPB SCH ×4 (03:15→20:27)
[2021-01-07] MEDS: *HR* Heparin 5,000 UNIT/ML VIAL SQ SCH ×2 (05:35→17:51)
[2021-01-07] MEDS: Ketorolac 30 MG/ML VIAL IVP SCH ×4 (05:35→23:03)
[2021-01-07] MEDS: Piperacillin/Tazobactam 3.375 GM in 0.9 % Sodium Chloride Mini Bag 100 ML IVPB SCH ×3 (10:48→23:03)
[2021-01-07] MEDS: Pantoprazole 40 MG VIAL IVP SCH (10:52)
[2021-01-07] MEDS: D5% in 0.45% NACL w KCl 20 MEQ/1,000 ML MLS IVC SCH (10:53)
[2021-01-07] MEDS: Nystatin SUSP 5 ML UD.LIQ PO SCH ×2 (17:52→20:28)
[2021-01-07] MEDS: Nicotine 7 MG PATCH.TD24 TD SCH (23:02)
[2021-01-07] MEDS: *HR* LORazepam 2 MG/ML VIAL IVP PRN (23:04)
[2021-01-08 01:54] LABS: Basophils % 0.3 %; Eosinophils # 0.3 K/mcL (0.0-0.6); Eosinophils % 4.3 %; Hematocrit 31.2 % (35.3-44.9); Hemoglobin 9.8 g/dL (11.5-15.4); Immature Granulocytes % 0.1 % (0-4); Lymphocytes # 0.9 K/mcL (0.6-4.6); Lymphocytes % 12.3 %; Mean Corpuscular HGB Conc 31.4 g/dL (31.6-35.5); Mean Corpuscular Hemoglobin 28.1 pg (28.0-33.3); Mean Corpuscular Volume 89.4 fL (83.0-100.0); Mean Platelet Volume 10.4 fL (9.4-12.4); Monocytes # 0.5 K/mcL (0.0-1.3); Monocytes % 7.6 %; Neutrophils # 5.3 K/mcL (1.6-8.9); Platelet Count 281 K/mcL (140-400); Red Blood Count 3.49 M/mcL (3.82-4.97); Red Cell Distribution Width 15.1 % (11.5-14.5); Segmented Neutrophils % 75.4 %
[2021-01-08 02:12] LABS: BUN/Creatinine Ratio 12 (6-26); Blood Urea Nitrogen 5 mg/dL (8-23); Calcium 8.5 mg/dL (8.6-10.3); Carbon Dioxide 27 mEq/L (23-29); Chloride 105 mEq/L (98-107); Glucose 97 mg/dL (70-105); Magnesium 1.8 mg/dL (1.6-2.6); Osmolality,Calculated 285 (280-300); Potassium 3.7 mEq/L (3.5-5.1); Sodium 139 mEq/L (136-145); eGFR For African Americans > 60 (> 60); eGFR For Non-African Americans > 60 (> 60)
[2021-01-08] MEDS: Acetaminophen IV 1,000 MG/100 ML BAG IVPB SCH ×4 (03:58→21:36)
[2021-01-08] MEDS: *HR* Heparin 5,000 UNIT/ML VIAL SQ SCH ×2 (05:16→18:42)
[2021-01-08] MEDS: Ketorolac 30 MG/ML VIAL IVP SCH (05:16)
[2021-01-08] MEDS: Piperacillin/Tazobactam 3.375 GM in 0.9 % Sodium Chloride Mini Bag 100 ML IVPB SCH ×3 (07:49→22:58)
[2021-01-08] MEDS: Nystatin SUSP 5 ML UD.LIQ PO SCH ×4 (07:51→21:36)
[2021-01-08] MEDS: Pantoprazole 40 MG VIAL IVP SCH (07:51)
[2021-01-08] MEDS: Nicotine 7 MG PATCH.TD24 TD SCH (21:35)
[2021-01-08] MEDS: Ondansetron 4 MG/2 ML VIAL IVP PRN (21:36)
[2021-01-08] MEDS: *HR* LORazepam 2 MG/ML VIAL IVP PRN (22:58)
[2021-01-09] MEDS: Acetaminophen IV 1,000 MG/100 ML BAG IVPB SCH (03:44)
[2021-01-09] MEDS: *HR* Heparin 5,000 UNIT/ML VIAL SQ SCH ×2 (05:02→17:21)
[2021-01-09] MEDS ORDERED: *HR* HYDROcodone/Acet 5/325 mg TABLET PO PRN (07:26)
[2021-01-09] MEDS ORDERED: Acetaminophen 325 MG TABLET PO PRN (07:27)
[2021-01-09] MEDS: Piperacillin/Tazobactam 3.375 GM in 0.9 % Sodium Chloride Mini Bag 100 ML IVPB SCH ×3 (07:50→23:30)
[2021-01-09] MEDS: Pantoprazole 40 MG VIAL IVP SCH (07:50)
[2021-01-09] MEDS: Nystatin SUSP 5 ML UD.LIQ PO SCH ×4 (07:51→20:42)
[2021-01-09 08:29] LABS: Basophils % 0.4 %; Eosinophils # 0.2 K/mcL (0.0-0.6); Eosinophils % 2.7 %; Hematocrit 32.1 % (35.3-44.9); Immature Granulocytes % 0.3 % (0-4); Lymphocytes # 1.1 K/mcL (0.6-4.6); Mean Corpuscular HGB Conc 31.2 g/dL (31.6-35.5); Mean Corpuscular Hemoglobin 27.5 pg (28.0-33.3); Mean Corpuscular Volume 88.4 fL (83.0-100.0); Mean Platelet Volume 10.7 fL (9.4-12.4); Monocytes # 0.7 K/mcL (0.0-1.3); Monocytes % 8.9 %; Neutrophils # 5.7 K/mcL (1.6-8.9); Platelet Count 339 K/mcL (140-400); Red Blood Count 3.63 M/mcL (3.82-4.97); Red Cell Distribution Width 15.1 % (11.5-14.5); Segmented Neutrophils % 73.7 %; White Blood Count 7.7 K/mcL (4.3-11.1)
[2021-01-09] MEDS ORDERED: Ipratropium/Albuterol Neb 3 ML IH ONE (08:47)
[2021-01-09] MEDS: Budesonide/Formoterol 80/4.5 1 PUFF INH IH SCH ×2 (09:43→20:36)
[2021-01-09] MEDS: Nicotine 7 MG PATCH.TD24 TD SCH (20:42)
[2021-01-09 21:48] LABS: Bilirubin,Urine Negative (Negative); Blood,Urine Negative (Negative); Clarity,Urine Clear (Clear); Color,Urine Light-Yellow (Yellow); Glucose,Urine (UA) Normal (Normal); Ketones,Urine 10 mg/dL (Negative); Leukocyte Esterase,Urine Small (Negative); Mucus,Urine Few per lpf (None-Few); Nitrite,Urine Negative (Negative); Protein,Urine Trace mg/dL (Neg-Trace); RBC,Urine 0-3 per hpf (0-3); Specific Gravity,Urine 1.017 (1.010-1.025); Squamous Epithelial Cell,Urine Moderate per hpf (None-Few); Urobilinogen,Urine Normal (Normal)
[2021-01-09] MEDS: *HR* LORazepam 2 MG/ML VIAL IVP PRN (23:31)
[2021-01-10] MEDS: *HR* Heparin 5,000 UNIT/ML VIAL SQ SCH (05:06)
[2021-01-10] MEDS: Budesonide/Formoterol 80/4.5 1 PUFF INH IH SCH (08:01)
[2021-01-10 08:05] VITALS: BP 140/62; PULSE 85; TEMP 97.5; O2SAT 95
[2021-01-10] MEDS: Piperacillin/Tazobactam 3.375 GM in 0.9 % Sodium Chloride Mini Bag 100 ML IVPB SCH (08:28)
[2021-01-10] MEDS: Nystatin SUSP 5 ML UD.LIQ PO SCH (08:29)
[2021-01-10] MEDS: Pantoprazole 40 MG VIAL IVP SCH (08:30)
== END 2021-01-10 12:55 | disposition home or self-care (01) | DRG 223 ==
LOC: SAMDAY 13:25 → 3ANU 22:10
PROVIDERS: ADMIT Surgery; ATTEND Surgery

== ENCOUNTER 2021-08-09 11:57 | Observation (INO) ==
[2021-08-09 14:17] LABS: Hematocrit 36.4 % (35.3-44.9); Hemoglobin 11.8 g/dL (11.5-15.4); Mean Corpuscular HGB Conc 32.4 g/dL (31.6-35.5); Mean Corpuscular Hemoglobin 26.6 pg (28.0-33.3); Mean Corpuscular Volume 82.2 fL (83.0-100.0); Mean Platelet Volume 11.2 fL (9.4-12.4); Neutrophils # 8.1 K/mcL (1.6-8.9); Platelet Count 383 K/mcL (140-400); Red Blood Count 4.43 M/mcL (3.82-4.97); Red Cell Distribution Width 15.4 % (11.5-14.5); White Blood Count 11.2 K/mcL (4.3-11.1)
[2021-08-09 14:19] LABS: Bilirubin,Urine Negative (Negative); Blood,Urine Trace (Negative); Clarity,Urine Turbid (Clear); Color,Urine Yellow (Yellow); Glucose,Urine (UA) 30 mg/dL (Normal); Hyaline Casts,Urine Few per lpf (None Seen); Ketones,Urine 40 mg/dL (Negative); Leukocyte Esterase,Urine Trace (Negative); Mucus,Urine Many per lpf (None-Few); Nitrite,Urine Negative (Negative); PH,Urine 6.5 pH Units (5.0-8.0); Protein,Urine 70 mg/dL (Neg-Trace); Specific Gravity,Urine 1.024 (1.010-1.025); Squamous Epithelial Cell,Urine Few per hpf (None-Few); Urobilinogen,Urine Normal (Normal); WBC,Urine 15-30 per hpf (0-3)
[2021-08-09 14:24] LABS: INR 1.6; Prothrombin Time 17.8 Seconds (9.4-12.1)
[2021-08-09] MEDS ORDERED: 0.9 % Sodium Chloride 2,000 ML IV ONE (14:33)
[2021-08-09] MEDS ORDERED: Ondansetron 4 MG/2 ML VIAL IVP PRN (14:33)
[2021-08-09] MEDS ORDERED: Iopamidol - 370 500 ML MLS IVP ONE (14:34)
[2021-08-09 14:40] LABS: Lymphocytes # 0.9 K/mcL (0.6-4.6); Monocytes # 2.2 K/mcL (0.0-1.3); Platelet Estimate Normal (Normal)
[2021-08-09 14:47] LABS: Alanine Aminotransferase 19 Units/L (7-52); Albumin 3.2 g/dL (3.5-5.7); Albumin/Globulin Ratio 0.9 (1.1-2.2); Alkaline Phosphatase 61 Units/L (34-104); Aspartate Amino Transferase 20 Units/L (13-39); BUN/Creatinine Ratio 19 (6-26); Bilirubin,Direct 0.1 mg/dL (0.0-0.2); Bilirubin,Indirect 0.4 mg/dL (0.0-1.0); Bilirubin,Total 0.5 mg/dL (0.3-1.0); Blood Urea Nitrogen 12 mg/dL (8-23); Calcium 8.3 mg/dL (8.6-10.3); Carbon Dioxide 30 mEq/L (23-29); Chloride 89 mEq/L (98-107); Globulin 3.7 g/dL (2.4-3.5); Glucose 115 mg/dL (70-105); Lipase < 3 Units/L (11-82); Osmolality,Calculated 271 (280-300); Potassium 3.2 mEq/L (3.5-5.1); Sodium 130 mEq/L (136-145); Total Protein 6.9 g/dL (6.4-8.9); Troponin I < 0.03 ng/mL (< 0.04); eGFR For African Americans > 60 (> 60); eGFR For Non-African Americans > 60 (> 60)
[2021-08-09 15:21] LABS: Magnesium 2.1 mg/dL (1.6-2.6)
[2021-08-09 15:23] LABS: Influenza A PCR Negative (Negative); Influenza B PCR Negative (Negative); Resp. Syncytial Virus PCR Negative (Negative)
[2021-08-09 15:43] LABS: SARS-CoV-2 by PCR (In House) Negative (Negative)
[2021-08-09] MEDS ORDERED: MetroNIDAZOLE 500 MG/100 ML 500 MG/100 ML BAG IVPB ONE (17:19)
[2021-08-09] MEDS ORDERED: 0.9 % Sodium Chloride 1,000 ML IV ONE (17:19)
[2021-08-09] MEDS ORDERED: Melatonin 3 MG TABLET PO PRN (17:39)
[2021-08-09] MEDS ORDERED: Naloxone 0.4 MG/ML INJ IVP PRN (17:39)
[2021-08-09] MEDS ORDERED: *HR* Dextrose 50 % in Water (Syg) 50 ML SYRINGE IVP PRN (17:47)
[2021-08-09] MEDS ORDERED: D5% in Water 1,000 ML IVC PRN (17:47)
[2021-08-09] MEDS ORDERED: Dextrose Gel 15 GM/37.5 ML TUBE PO PRN ×2 (17:47)
[2021-08-09 17:53] LABS: C-Reactive Protein > 300 mg/L (Less than 10)
[2021-08-09 18:48] LABS: Ferritin 114 ng/mL (10-120); Iron < 10 mcg/dL (50-170); Thyroid Stimulating Hormone 1.071 mcIU/mL (0.340-5.600); Transferrin 154 mg/dL (203-362)
[2021-08-09] MEDS ORDERED: 0.9 % Sodium Chloride 1,000 ML IVC SCH (19:45)
[2021-08-09] MEDS ORDERED: Albumin 25% 25gram/100mL 25 GM/100 ML IV.SOLN IVPB ONE (20:31)
[2021-08-09] MEDS: Lactobacillus 1 EACH CAP.SPRINK PO SCH (20:35)
[2021-08-09] MEDS ORDERED: Acetaminophen IV 1,000 MG/100 ML BAG IVPB ONE (21:00)
[2021-08-09] MEDS: MetroNIDAZOLE 500 MG/100 ML 500 MG/100 ML BAG IVPB SCH (21:36)
[2021-08-09 22:01] LABS: Adenovirus F 40/41 PCR Not detected (Not detect); Astrovirus PCR Not detected (Not detect); C.difficile Toxin A/B Gene PCR Not detected (Not detect); Campylobacter by PCR Not detected (Not detect); Cryptosporidium by PCR Not detected (Not detect); Cyclospora cayetanensis PCR Not detected (Not detect); Entamoeba histolytica PCR Not detected (Not detect); Enteroaggregative E.coli(EAEC) Not detected (Not detect); Enteropathogenic E.coli(EPEC) Not detected (Not detect); Enterotoxigenic E.coli (ETEC) Not detected (Not detect); Giardia lamblia PCR Not detected (Not detect); Norovirus GI/GII PCR Not detected (Not detect); Plesiomonas shigelloides PCR Not detected (Not detect); Rotavirus A PCR Not detected (Not detect); Salmonella PCR Not detected (Not detect); Sapovirus PCR Not detected (Not detect); Shig/EnteroinvasiveE coli EIEC Not detected (Not detect); Shigalike tox-prod E coli STEC Not detected (Not detect); Vibrio PCR Not detected (Not detect); Vibrio cholerae PCR Not detected (Not detect); Yersinia enterocolitica PCR Not detected (Not detect)
[2021-08-09] MEDS: 0.9 % Sodium Chloride 1,000 ML IVC SCH (23:30)
[2021-08-10] MEDS ORDERED: MetroNIDAZOLE 500 MG/100 ML 500 MG/100 ML BAG IVPB SCH
[2021-08-10 01:28] LABS: Albumin 2.3 g/dL (3.5-5.7)
[2021-08-10] MEDS ORDERED: Albumin 25% 25gram/100mL 25 GM/100 ML IV.SOLN IVPB ONE (02:05)
[2021-08-10 03:51] LABS: Mean Corpuscular HGB Conc 31.5 g/dL (31.6-35.5); Mean Corpuscular Hemoglobin 26.5 pg (28.0-33.3); Mean Corpuscular Volume 84.1 fL (83.0-100.0); Mean Platelet Volume 11.7 fL (9.4-12.4); Platelet Count 267 K/mcL (140-400); Red Blood Count 3.21 M/mcL (3.82-4.97); Red Cell Distribution Width 15.8 % (11.5-14.5); White Blood Count 7.8 K/mcL (4.3-11.1)
[2021-08-10 04:01] LABS: Hemoglobin 8.5 g/dL (11.5-15.4)
[2021-08-10 04:04] LABS: Chol/HDL Ratio 8.3 (0-4.9); Magnesium 1.7 mg/dL (1.6-2.6)
[2021-08-10] MEDS: MetroNIDAZOLE 500 MG/100 ML 500 MG/100 ML BAG IVPB SCH ×3 (08:36→23:13)
[2021-08-10] MEDS: 0.9 % Sodium Chloride 1,000 ML IVC SCH (08:37)
[2021-08-10] MEDS: Lactobacillus 1 EACH CAP.SPRINK PO SCH ×2 (08:38→20:44)
[2021-08-10] MEDS: Ondansetron 4 MG/2 ML VIAL IVP PRN ×2 (08:46→23:13)
[2021-08-10] MEDS ORDERED: Prochlorperazine 10 MG/2 ML VIAL IVP STA (10:13)
[2021-08-10 11:06] LABS: Hematocrit 30.1 % (35.3-44.9); Hemoglobin 9.6 g/dL (11.5-15.4)
[2021-08-10] MEDS ORDERED: SODIUM CHLORIDE/NAHCO3/KCL/PEG 4,000 ML SOLN.RECON PO ONE (17:00)
[2021-08-10] MEDS: MethylPREDNISolone 40 MG/ML VIAL IVP SCH ×2 (18:13→23:12)
[2021-08-10 21:33] LABS: Hepatitis B Surface Antibody < 3.10 mIU/mL
[2021-08-10 21:45] LABS: Hepatitis B Surface Antigen Nonreactive (Nonreactive)
[2021-08-10] MEDS ORDERED: Acetaminophen IV 1,000 MG/100 ML BAG IVPB ONE (22:38)
[2021-08-10] MEDS: Ringers Solution, Lactated 1,000 ML IVC SCH (23:01)
[2021-08-10 23:29] LABS: BUN/Creatinine Ratio 9 (6-26); Blood Urea Nitrogen 4 mg/dL (8-23); Calcium 7.4 mg/dL (8.6-10.3); Carbon Dioxide 25 mEq/L (23-29); Chloride 98 mEq/L (98-107); Glucose 126 mg/dL (70-105); Osmolality,Calculated 276 (280-300); Phosphorous 2.2 mg/dL (2.7-4.5); Potassium 3.2 mEq/L (3.5-5.1); Sodium 134 mEq/L (136-145); eGFR For African Americans > 60 (> 60); eGFR For Non-African Americans > 60 (> 60)
[2021-08-11] MEDS: Pantoprazole 40 MG VIAL IVP SCH ×2 (04:54→18:24)
[2021-08-11 05:38] LABS: Basophils % 0.2 %; Hematocrit 30.5 % (35.3-44.9); Hemoglobin 9.6 g/dL (11.5-15.4); Immature Granulocytes % 0.9 % (0-4); Lymphocytes # 0.7 K/mcL (0.6-4.6); Lymphocytes % 10.1 %; Mean Corpuscular HGB Conc 31.5 g/dL (31.6-35.5); Mean Corpuscular Hemoglobin 26.3 pg (28.0-33.3); Mean Corpuscular Volume 83.6 fL (83.0-100.0); Mean Platelet Volume 11.1 fL (9.4-12.4); Monocytes # 0.4 K/mcL (0.0-1.3); Monocytes % 5.5 %; Neutrophils # 5.4 K/mcL (1.6-8.9); Platelet Count 311 K/mcL (140-400); Red Blood Count 3.65 M/mcL (3.82-4.97); Red Cell Distribution Width 15.9 % (11.5-14.5); Segmented Neutrophils % 83.3 %; White Blood Count 6.5 K/mcL (4.3-11.1)
[2021-08-11] MEDS: Nystatin SUSP 5 ML UD.LIQ BC SCH ×5 (06:31→21:16)
[2021-08-11 06:44] LABS: BUN/Creatinine Ratio 16 (6-26); Blood Urea Nitrogen 6 mg/dL (8-23); Calcium 6.5 mg/dL (8.6-10.3); Carbon Dioxide 25 mEq/L (23-29); Chloride 98 mEq/L (98-107); Glucose 147 mg/dL (70-105); Magnesium 2.1 mg/dL (1.6-2.6); Osmolality,Calculated 280 (280-300); Phosphorous 2.1 mg/dL (2.7-4.5); Potassium 3.3 mEq/L (3.5-5.1); Sodium 135 mEq/L (136-145); eGFR For African Americans > 60 (> 60); eGFR For Non-African Americans > 60 (> 60)
[2021-08-11] MEDS ORDERED: Lidocaine -MPF 2% 5 ML VIAL ONE (08:23)
[2021-08-11] MEDS ORDERED: Ondansetron 4 MG/2 ML VIAL ONE (08:30)
[2021-08-11] MEDS ORDERED: *HR* Midazolam HCl 2 MG/2 ML VIAL ONE (08:32)
[2021-08-11] MEDS: Ringers Solution, Lactated 1,000 ML IVC SCH ×2 (10:40→23:27)
[2021-08-11] MEDS: MetroNIDAZOLE 500 MG/100 ML 500 MG/100 ML BAG IVPB SCH ×3 (10:41→23:26)
[2021-08-11] MEDS: MethylPREDNISolone 40 MG/ML VIAL IVP SCH ×3 (11:54→23:28)
[2021-08-11] MEDS: Lactobacillus 1 EACH CAP.SPRINK PO SCH ×2 (11:55→21:16)
[2021-08-11] MEDS ORDERED: Iron Sucrose Complex 200 MG in 0.9 % Sodium Chloride 100 ML IVPB ONE (15:00)
[2021-08-11 15:15] LABS: Quantiferon Mitogen minus NIL 9.91 IU/mL; Quantiferon Nil 0.09 IU/mL
[2021-08-12 04:30] LABS: Basophils % 0.3 %; Hematocrit 30.7 % (35.3-44.9); Immature Granulocytes % 0.8 % (0-4); Lymphocytes # 0.7 K/mcL (0.6-4.6); Lymphocytes % 7.2 %; Mean Corpuscular HGB Conc 32.6 g/dL (31.6-35.5); Mean Corpuscular Hemoglobin 26.4 pg (28.0-33.3); Mean Platelet Volume 12.2 fL (9.4-12.4); Monocytes # 0.9 K/mcL (0.0-1.3); Monocytes % 9.5 %; Neutrophils # 7.5 K/mcL (1.6-8.9); Platelet Count 334 K/mcL (140-400); Red Blood Count 3.79 M/mcL (3.82-4.97); Red Cell Distribution Width 15.9 % (11.5-14.5); Segmented Neutrophils % 82.2 %; White Blood Count 9.1 K/mcL (4.3-11.1)
[2021-08-12 05:16] LABS: BUN/Creatinine Ratio 32 (6-26); Blood Urea Nitrogen 10 mg/dL (8-23); Calcium 7.8 mg/dL (8.6-10.3); Carbon Dioxide 31 mEq/L (23-29); Chloride 99 mEq/L (98-107); Glucose 199 mg/dL (70-105); Magnesium 2.2 mg/dL (1.6-2.6); Osmolality,Calculated 285 (280-300); Phosphorous < 1.0 mg/dL (2.7-4.5); Potassium 3.4 mEq/L (3.5-5.1); Sodium 135 mEq/L (136-145); eGFR For African Americans > 60 (> 60); eGFR For Non-African Americans > 60 (> 60)
[2021-08-12] MEDS ORDERED: Potassium Phosphate 44 MEQ in 0.9 % Sodium Chloride 250 ML IVPB ONE (05:19)
[2021-08-12] MEDS: Pantoprazole 40 MG VIAL IVP SCH (06:17)
[2021-08-12 07:49] VITALS: O2SAT 93
[2021-08-12] MEDS: MetroNIDAZOLE 500 MG/100 ML 500 MG/100 ML BAG IVPB SCH (10:16)
[2021-08-12] MEDS: MethylPREDNISolone 40 MG/ML VIAL IVP SCH (10:17)
[2021-08-12] MEDS: Nystatin SUSP 5 ML UD.LIQ BC SCH ×2 (10:17→13:09)
[2021-08-12] MEDS: Lactobacillus 1 EACH CAP.SPRINK PO SCH (10:17)
[2021-08-12 12:01] VITALS: BP 121/87; PULSE 84; TEMP 98.4
[2021-08-12] MEDS: Ringers Solution, Lactated 1,000 ML IVC SCH (12:43)
[2021-08-14 20:16] LABS: ANCA IFA Titer <1:20 (<1:20)
[2021-08-15 09:10] LABS: ANCA IFA Pattern NONE DETECTED (None Detected); Saccharomyces cerevisiae IgA 10.9 Units (0.0-24.9)
== END 2021-08-12 14:53 | disposition home or self-care (01) ==
LOC: EMEROOARM 11:57 → 3ANU 11:57 → SUATTDRO 18:03 → 3ANU 19:43
PROVIDERS: ADMIT General Practice; ATTEND Student in an Organized Health Care Education/Training Program
PROC: ENDOCBX (2021-08-11 10:10)